=== PATIENT | male | born 1985 | race Native Hawaiian/Other Pacific Islander ===

== ENCOUNTER 2024-07-22 23:43 | Emergency (ER) | payer OTHER, SELFPAY ==
[2024-07-22 23:52] VITALS: BP 139/87; PULSE 84; RESP 20; TEMP 36.8; O2SAT 99; BMI 29.5
[2024-07-23 00:13] LABS: Appearance Urine Clear (Clear); Bilirubin Urine Negative (Negative); Blood Urine Negative (Negative); Color Urine Yellow (Yellow); Glucose Urine Negative (Negative); Ketones Urine Negative (Negative); Leukocyte Esterase Urine Negative (Negative); Nitrite Urine Negative (Negative); Protein Urine Negative (Negative); Specific Gravity Urine >= 1.030 (1.000-1.030); Urobilinogen Urine 0.2 (0.2-1.0); pH Urine 5.5 (5.0-8.5)
[2024-07-23 00:21] LABS: RBC Urine 0-2 (0-2); WBC Urine 0-2 (0-5)
[2024-07-23 00:22] LABS: Bacteria Urine Few; Mucus Urine Moderate; Squamous Epithelial Cell Urine Few (None-Few)
--- NOTE | 2024-07-23 00:45 | ED.GENADULT ---
HPI - General Adult General Chief complaint: Urogenital Problems, Male Stated complaint: trouble urinating Time Seen by Provider: 07/22/24 23:52 Source: patient Mode of arrival: ambulatory Limitations: no limitations History of Present Illness HPI narrative: 38-year-old male presents to the emergency department for evaluation of a lump on his penis but originally had said dysuria which he denies to me. He had a new sexual encounter over the weekend which is just 3 days ago. Yesterday he noticed a flesh-colored bump on the proximal shaft of his penis. He has no difficulty emptying his bladder. No changes in his stream. There is no pain on the tip of the penis. No fever. No blood in his urine. No injury or trauma. He did use protection with the sexual encounter. No abdominal pain, no vomiting. No penile discharge. He reports that he attempted to make an appointment in the clinic yesterday but told it would be a 2 day wait so he elected to come to the emergency department tonight in the wee hours. Past medical history is notable for obesity. States that he takes would go be for weight loss and another weight loss medication but he does not know the name. These are prescribed through provider at [facility]. Denies drug allergies. ROS is notable for the genital symptoms only, otherwise denies other generalized, skin, other genital, abdominal changes. Related Data Home Medications ?Medication ?Instructions ?Recorded ?Confirmed semaglutide (weight loss) 2.4 2.4 mg subcut DIRECTED 07/22/24 07/22/24 mg/0.75 mL subcutaneous pen injector (Wegovy) topiramate 25 mg tablet 25 mg PO BID 07/22/24 07/22/24 Allergies Allergy/AdvReac Type Severity Reaction Status Date / Time No Known Drug Allergies Allergy Verified 07/22/24 23:58 [facility] Medical History Sore throat ?J02.9 - Acute pharyngitis, unspecified (ICD-10) Surgical History No significant past surgical history Social History Smoking Status: Never smoker Second hand tobacco smoke exposure: No How often do you have a drink containing alcohol: never AUDIT-C Alcohol total score: 0 Non-prescribed substance use: denies use Exam Const: Vital Signs, click to edit/add: Vital Signs - 24 hr 07/22/24 23:52 Temperature 98.2 F Pulse Rate [Right Pulse Oximeter] 84 Respiratory Rate 20 Blood Pressure [Le ft Upper Arm] 139/87 Pulse Oximetry 99 Oxygen Delivery Me thod Room Air Documenting provider has reviewed patient's vital signs: yes Common normals: no apparent distress General appearance: comfortable HENMT: Common normals: normocephalic Head and scalp: normocephalic Eye: General eye: normal appearance of both eyes Neck & C-Spine: General: normal visual inspection Resp: Common normals: normal respiratory effort Effort & inspection: able to speak in complete sentences GI: Common normals: Normal to inspection, nondistended, normoactive bowel sounds present, soft to palpation, non-tender, no hepatosplenomegaly and no masses Palpation: soft and no hepatosplenomegaly : Male Groin/Perineum Exam: no ecchymosis, no edema, no erythema and no inguinal lymphadenopathy Penis: uncircumcised Meatus: meatus normal Scrotum: testes descended bilaterally Other: At the proximal shaft of the penis, near the mons there is a lesion that is about 7 mm in size, seems to be in the dermal layer, flesh-colored, firm, smooth, rounded with no significant changes in the overlying skin. There are no work like, ulcerated, macular, papular or other abnormal appearing lesions on the penis, scrotum, foreskin or head of the penis. Meatus appears normal. For skin appears normal. Extremity: Common normals: normal to inspection, normal capillary refill and no pedal edema Psych: Attitude: calm Activity/motor behavior: appropriate eye contact Insight: fair Judgement: fair Skin: Common normals: no rashes or lesions noted Narrative: Other than the cystic lesion described above, no other abnormal lesions. General skin exam: no rashes or lesions noted Course Course ED Course: I initially had a hard time understanding the patient's concerns, and we requested the use of microelectronics technician. It is had a hard time understanding what he was concerned about as he had much difficulty describing it but had initially declined an microelectronics technician. With this, we were able to figure out that the lump is new and he was very concerned about it despite the fact that he has no difficulty voiding, no drainage, no ulcerated lesions, no prior similar history, no known exposure to STDs, no dysuria or other abnormality. Urinalysis is collected. Counseled patient on the cystic appearance and how it does not seem consistent with an STD but it can be difficult to tell in the 1st early stage sometimes of a lesion. Counseled patient that there is certainly no immediate threat to his health. Gonorrhea and chlamydia tests are collected and will be run in the daylight hours. He is counseled that he will be called if these are abnormal. Urinalysis is not suspicious for acute urinary tract infection. Patient counseled on the cystic lesion. These do typically resolve on their own but it takes several weeks. He still seems incredibly concerned about this lesion. I have recommended that he make a follow-up with a urologist for a 2nd opinion. We discussed the alarm symptoms that would warrant ED presentation and also described lesions that would be more consistent with an STD like ulcerated or papilla form type lesions. Written instructions provided. Patient will be contacted if his STD screen is unexpectedly positive. Vital Signs Vital signs: Initial Vital Signs Temperature 98.2 F 07/22/24 23:52 Temperature Source Temporal Artery Scan 07/22/24 23:52 Pulse Rate 84 07/22/24 23:52 Respiratory Rate 20 07/22/24 23:52 Blood Pressure 139/87 07/22/24 23:52 Blood Pressure Mean 104 07/22/24 23:52 Blood Pressure Position Sitting 07/22/24 23:52 Pulse Oximetry 99 07/22/24 23:52 Oxygen Delivery Method Room Air 07/22/24 23:52 Vital Signs Temperature 98.2 F 07/22/24 23:52 Pulse Rate 84 07/22/24 23:52 Respiratory Rate 20 07/22/24 23:52 Blood Pressure 139/87 07/22/24 23:52 Pulse Oximetry 99 07/22/24 23:52 Oxygen Delivery Method Room Air 07/22/24 23:52 Temperature 98.2 F 07/22/24 23:52 Pulse Rate 84 07/22/24 23:52 Respiratory Rate 20 07/22/24 23:52 Blood Pressure 139/87 07/22/24 23:52 Pulse Oximetry 99 12/03/24 23:52 Oxygen Delivery Method Room Air 07/22/24 23:52 Medical Decision Making Lab Data Labs: Lab Results 07/22/24 Range/Units 23:59 Urine Color Yellow (Yellow) Urine Appearance Clear (Clear) Urine pH 5.5 (5.0-8.5) Ur Specific [place] >= 1.030 (1.000-1.030) Urine Protein Negative (Negative) Urine Glucose (UA) Negative (Negative) Urine Ketones Negative (Negative) Urine Blood Negative (Negative) Urine Nitrite Negative (Negative) Urine Bilirubin Negative (Negative) Urine Urobilinogen 0.2 (0.2-1.0) Ur Leukocyte Esterase Negative (Negative) Urine RBC 0-2 (0-2) Urine WBC 0-2 (0-5) Ur Squamous Epith Cells Few (None-Few) Urine Bacteria Few A (None) Urine Mucus Moderate A (None) Discharge Plan Discharge Clinical Impression: Epidermoid cyst of skin of penis Patient Disposition: Home, Self-Care Condition: Stable Additional Instructions: As we discussed, the bump on the upper penis does not seem consistent with a sexually transmitted disease. It seems more consistent with an cyst. Cysts are typically the same color is your skin, a little larger and are often firm and nonpainful. Lesions associated with sexually transmitted diseases tend to be red, smaller or ulcerated. Cysts will often last for several weeks and will go away on their own. I do not recommend attempting to pop or drain the lesion. There are no signs of a urinary tract infection on your urine test today. We will check for gonorrhea and chlamydia in your urine as well and that test will be back tomorrow. We will call you if it is positive. We cannot run a full STD panel here in the emergency department. We would recommend that you have this done 2 weeks after sexual contact if you are concerned. You seem quite concerned regarding this bump on your genital area and do not seem reassured by my assessment. Because of this, I recommend that you seek a 2nd opinion from a urologist. You may call [facility] to schedule this for yourself. Their phone numbers are Call: [phone] or Call: [phone]. As we discussed, these are not concerns that her typically addressed in the emergency department. You should come to emergency department if you have severe burning with urination and fever or heavy bleeding with urination or if you are unable to urinate after several hours of attempting to do so.. Jignesh ya comentamos, el bulto en la parte superior del pene no parece corresponder a zeenat enfermedad de transmisi?n sexual, sino m?s jeremy a un quiste. Los quistes suelen ser del mismo color que la piel, un poco m?s grandes y, a menudo, firmes y no dolorosos. Las lesiones asociadas a las enfermedades de transmisi?n sexual suelen ser de leon, m?s rubio?as o ulceradas. Los quistes suelen durar varias semanas y desaparecer?n por s? solos. No recomiendo intentar reventar o drenar la lesi?n. Hoy no hay signos de infecci?n del tracto urinario en el an?lisis de orina. Tambi?n comprobaremos si hay gonorrea y clamidia en la orina y ma?laquita tendremos los resultados. Te llamaremos si es positivo. No podemos realizar un panel completo de ETS aqu? en el departamento de urgencias. Te recomendamos que lo hagas 2 semanas despu?s del contacto sexual si est?s preocupado. Pareces bastante preocupado por cedric bulto en tu rell genital y no pareces tranquilizado por mi evaluaci?n. Por ello, te recomiendo que busques zeenat segunda opini?n de un ur?logo. Puedes llamar a [facility] [place] para programar zeenat aisha. Gabrielle n?meros de tel?fono son: [phone] o [phone]. Lawn ya comentamos, no se trata de problemas que se suelen tratar en el servicio de urgencias. Debe acudir al servicio de urgencias si tiene ardor intenso al orinar y fiebre o sangrado intenso al orinar o si no puede orinar despu?s de varias horas de intentar hacerlo. Activity Level: No Restrictions Discharge Diet: Regular Prescriptions: No Action topiramate 25 mg tablet 25 mg PO BID Wegovy 2.4 mg/0.75 mL pen injector 2.4 mg subcut DIRECTED Follow Up/Referrals: Provider,Not a Local [Primary Care Provider] - Stand Alone Forms: [facility] Inst[facility]
--- OUTSIDE RECORDS SUMMARY | 2024-07-23 00:55 | XMS_ITS | Clinical Summary ---
Author Organization [facility] Address [address] [address] Care Team Providers Care Transportation Assistant Name Role Phone No Primary/Referring, Phy Primary Care Provider Unavailable Source Comments You are receiving this document as you are listed as the primary care provider,follow-up provider, or the patient has been referred to you for consultation.This is in compliance with the Medicare and[facility] EHR Incentive [facility],which states Providers who transition their patient to another setting of careor provider of care or refers their patient to another provider of care shouldprovide summary care record for each transition of care or referral. [employer] Allergies Active Allergy Reactions Criticality Noted Date Comments Latex Redness 11/08/2022 Medications Medication Sig Dispensed Refills Start Date End Date Status cyclobenzaprine (FLEXERIL) 5 MG tablet Take 1 Tablet (5 mg) by mouth at bedtime as needed. 10/25/2021 Active diclofenac (VOLTAREN) 1 % gel 2 g 4 times a day. 10/28/2021 Active SUMAtriptan (IMITREX) 100 MG tablet 100mg one time. May repeat 100 mg once again, up to a maximum of 200mg in 24 hours. 08/03/2021 Active topiramate (TOPAMAX) 25 MG tablet Take 1 tablet (25 mg) at bedtime for 1 week, then 1 tablet twice daily for 1 week, then 1 tablet in AM and 2 in PM for 1 week, then 2 tablets twice daily. 11/29/2021 Active semaglutide-weight management (WEGOVY) 0.25 MG/0.5ML pen injection Inject 0.5 mL (0.25 mg) subcutaneously once every week. Active minoxidil (LONITEN) 10 MG tablet Take 1 Tablet (10 mg) by mouth daily. Active acetaminophen (TYLENOL) 500 MG tablet Take 1-2 Tablets (500-1,000 mg) by mouth every 6 hours as needed. 100 Tablet 1 01/17/2024 Active oxyCODONE (ROXICODONE) 5 MG immediate release tablet Take 1 Tablet (5 mg) by mouth every 6 hours as needed. 8 Tablet 01/17/2024 Active Additional Information Patient not taking.Reported on 02/04/2024 ibuprofen (MOTRIN) 200 MG tablet Take 1-3 Tablets (200-600 mg) by mouth every 6 hours as needed. 100 Tablet 1 01/17/2024 Active docusate sodium (COLACE) 100 MG capsule Take 1 Capsule (100 mg) by mouth two times a day. 40 Capsule 1 01/17/2024 Active ondansetron (ZOFRAN-ODT) 4 MG disintegrating tablet Take 1 Tablet (4 mg) by mouth every 8 hours as needed. 12 Tablet 1 01/17/2024 Active Active Problems Problem Noted Date Diagnosed Date Patellofemoral pain syndrome of right knee 07/08 Postop check 02/04/2024 Sesamoiditis of right foot 03/03/2022 Pain in joint involving right ankle and foot 05/2022 Right foot pain 12/27/2021 Cervicalgia 07/26/2006 Lumbago 07/26/2006 Encounters Date Type Department Care Team Description 07/08/2024 11:20 AM MOTION PICTURE DIRECTOR Office Visit Orthopedics at [facility] Orthopedics at [address] [address] Alexandra Jon MD Right foot pain (Primary Dx); Patellofemoral pain syndrome of right knee 07/08/2024 11:00 AM MOTION PICTURE DIRECTOR Office Visit Orthopedics at [facility] Orthopedics at [address] [address] Mary Chong, SOLID SURFACE FABRICATOR, BONE PULLER Patellofemoral arthritis of right knee (Primary Dx) 05/10/2024 8:15 AM CDT Therapy [facility] [address] [address] Corine Gama, PT Chronic pain of right knee (Primary Dx) 04/26/2024 12:30 PM CDT Therapy [facility] [address] [address] Tawny Alarcon, PT Chronic pain of right knee (Primary Dx) from Last 3 Months Immunizations Name Administration Dates Next Due DTP 02/25/1992, 9,05/18/1987, 987,1986 HepB Adult (Engerix-B, 20+ y rs, 3 dose series) 11/13/2006,08/18/2005,09/10/2002 IPV (Polio) 02/25/1992, 9,02/18/1987, 987 Influenza IIV4 (Quadrivalent ) 0.5mL (32770) 09/01/2015 MMR 05/18/1999,06/19/1989 Td 05/18/1999 Tdap 09/01/2015 Varicella 08/18/2005,09/10/2002 Family History Medical History Relation Name Comments Diabetes, Type II Father Hyperlipidemia Father Relation Name Status Comments Father Social History Tobacco Use Types Packs/Day Years Used Date Smoking Tobacco: Never Smokeless Tobacco: Never Alcohol Use Standard Drinks/Week Comments No 0 (1 standard drink = 0.6 oz pur e alcohol) Humiliation, Afraid, Rape, and Kick questionnair e Answer Date Recorded Fear of Current or Ex-Partner Not on file Emotionally Abused Not on file 01/16/2024 Within the last year, have y ou been kicked, hit, slapped, or otherwise physically hurt by your partner or ex-partner? No 01/16/2024 Within the last year, have y ou been raped or forced to have any kind of sexual activity by your partner or ex-partner? No 01/16/2024 Sex and Gender Information Value Date Recorded Sex Assigned at Not on file Gender Identity Not on file Sexual Orientation Not on file Last Filed Vital Signs Vital Sign Reading Time Taken Comments Blood Pressure 125/75 01/17/2024 1:15 PM CDT Pulse 88 01/17/2024 1:15 PM CDT Temperature 36.7 C (98.1 F) 01/17/2024 1:15 PM CDT Respiratory Rate 15 01/17/2024 1:15 PM CDT Oxygen Saturation 95% 01/17/2024 1:15 PM CDT Inhaled Oxygen Concentration - - Weight 93.9 kg (207 lb) 01/17/2024 8:00 AM CDT Height 168.9 cm (5' 6.5) 01/17/2024 8:00 AM CDT Body Mass Index 32.91 01/17/2024 8:00 AM CDT Plan of Treatment Health Maintenance Due Date Last Done Comments Diabetes Screening- (based on age and BMI) 1985 Hep C Screening (Preventive Services) 1985 HIV Screening (Preventive Services) 2002 Adult Preventive Visit 2004 Cholesterol 2021 COVID-19 Vaccine ( season) 2024 01/11/2021, 12/21/2020 Influenza (#1) 2024 09/01/2015 DTaP/Tdap/Td (7 - Tdap) 09/01/2025 09/01/19 16, 05/18/1999, 05/18/1999, Additional history exists Zoster/Shingles (1 of 2) 2036 IPV (Polio) Completed 02/25/1992, 05/22, 02/18/1987, Additional history exists HepB Completed 11/13/2006, 07/22, 09/10/2002 HPV Vaccine Aged Out No longer eligi ble based on patient's age to complete this topic HepA Aged Out No longer eligi ble based on patient's age to complete this topic Hib Aged Out No longer eligi ble based on patient's age to complete this topic Infant RSV Aged Out No longer eligi ble based on patient's age to complete this topic MCV4 Aged Out No longer eligi ble based on patient's age to complete this topic Pneumococcal Aged Out No longer eligi ble based on patient's age to complete this topic Advance Directives * Full Code (Latest Code Status on File) Date Activated Date Inactivated Comments 01/17/2024 11:21 AM 01/17/2024 3:41 PM Care Teams Transportation Assistant Relationship Specialty Start Date End Date No Primary/Referring, Vianey PCP - General 05/15/14
--- OUTSIDE RECORDS SUMMARY | 2024-07-23 00:55 | XMS_ITS | Encounter Summary ---
Author Organization [facility] Address [address] [place] [address] Care Team Providers Care Catapult And Arresting Gear Officer Name Role Phone No Primary/Referring, Phy Primary Care Provider Unavailable Reason for Visit * Reason Comments Knee Problem Encounter Details Date Type Department Care Team (Late st Contact Info) Description 05/10/2024 8:15 AM CDT Therapy [facility] [address] [address] [place] [address] [place] [address] Chronic pain of right knee (Primary Dx) Social History Tobacco Use Types Packs/Day Years [...] on file Sexual Orientation Not on file documented as of this encounter Progress Notes * Corine Gama, PT - 05/10/2024 8:15 AM CDT Physical Therapy Daily Note Visit Number: 4 Initial Certification Period: 03/03/2024 to 06/01/24 Referring Provider: Vini Yip Visit Diagnosis: 1. Chronic pain of right knee Precautions: none reported Reference Data Expert Onset/Referral Date: Winter 2022 Patient 15' late to appointment. Patient declined banjo repair person today. He demonstrated good understanding of my questions and was ableto have a full conversation with me. I asked repeatedly if he understood and he responded yes each time. SUBJECTIVE Reason for Visit: Cheng is new to this therapist. He reports persistent moderate to severe right knee, now primarily lateral joint line. He reports that pain is an 8/10 regularly. 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 Stiff and sore with am rise, sit to stand. He does not have access to exercise equipment. Reports that he is unable to stand or walk for an extended period of time secondaryto fatigue. Has had knee injection and it helped temporarily. Worse with standing, walking, and stairs. Ok sitting at desk. Attempting his exercises irregularly. Right knee pain that has been happening since his fall this past winter. He had a recent sesamoid removal in his right great toe that happened in January. Does not understand why his foot has pain stilland why it is swollen. Reports that he knows that he needs a knee surgery even if the doctors are telling him he doesn't. 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 Independent without AD. TREATMENT TODAY: Neuromuscular Re-education x 30 minutes: Utilized to manage pain and/or improve deficits in movement, balance, coordination, kinesthetic sense, posture, and/or proprioception. Again, Extensive pain neuroscience education provided while doing exercises Nustep without resistance x 8' Sidestepping 25' x 2. Add to HEP. Forward mini lunge 25' x 2. Add to HEP. [place], 1/4 ROM secondary to ITB pain. 15' x 1. Add to HEP. Hand out provided on PTF pain and the importance of strengthening, stretching to decrease his symptoms. Pain can be anticipated as he is working through PT. Pain, even up to a 5/10, can be normal post exercise. Proper posture and ergonomic needs for work, sleep and adls discussed and demonstrated in detail with hand out provided. No prolonged sit, walk often. Follow up with ortho for pain management needs. Timed Code Treatment Minutes: 30 Total Treatment Minutes: 30 Access Code: [email or web address] URL: [email or web address] Date: 05/10/2024 Prepared by: Corine Gama Exercises - Supine Active Straight Leg Raise - 1 x daily - 7 x weekly - 2 sets - 10 reps - Supine Bridge - 2 sets - 10 reps - Supine Heel Slide - 1 x daily - 7 x weekly - 2 sets - 10 reps - Supine Knee Extension Strengthening - 1 x daily - 7 x weekly - 2 sets - 10 reps - Stand quad set with band - 1 x daily - 2 sets - 15 reps - Hip Abduction with Resistance Loop - 1 x daily - 2 sets - 15 reps - Sideways Walking - 1 x daily - 5 reps - 50 feet - Walking Forward Lunge - 1 x daily - 5 reps - 50 feet - Braided Sidestepping - 1 x daily - 5 reps - 50 feet ASSESSMENT: Cheng returns to PT reporting ongoing knee pain. Continues to have high fear avoidance behavior which is limiting his progress. Pt will continue to benefit from skilled Physical Therapy interventions to address above impairments and allow pt to return to activities of daily living, work and leisure activities independently as tolerated. EXPECTED FUNCTIONAL OUTCOMES/GOALS: HEP/Independent Management: Demonstrate independence with HEP and self- management following each treatment session ADL's: Resume previous sleep pattern without awakening due to symptoms in 12 weeks. Perform sit to stand transfer using involved lower extremity in 12 weeks. Squat to chart picker items from floor with minimal/no symptoms in 12 weeks. Ambulation: Ambulate with normal gait pattern on uneven surfaces with minimal to no symptoms/limp in 12 weeks. Be aleshia to go up and down stairs in the sagittal pain in 4 weeks. Be able to go up and down stairs without fear and pain above 4/10 in 12 weeks. PLAN: TNE. bike, leg press. Functional movement. documented in this encounter Plan of Treatment Not on file documented as of this encounter Visit Diagnoses Diagnosis Chronic pain of right knee- Primary documented in this encounter Care Teams Catapult And Arresting Gear Officer Relationship Specialty Start Date End Date No Primary/Referring, Phy PCP - General 05/15/14 documented as of this encounter
--- OUTSIDE RECORDS SUMMARY | 2024-07-23 00:55 | XMS_ITS | Encounter Summary ---
Author Organization [facility] Address [address] [address] Care Team Providers Care Senior Mainframe Programmer Analyst Name Role Phone No Primary/Referring, Phy Primary Care Provider Unavailable Reason for Referral * Therapies (Routine) - New Request Specialty Diagnoses / Procedures Referred By Contac t Referred To Contact Diagnoses Right foot pain Patellofemoral pain syndrome of right knee Alexandra Jon MD [address] [facility] [address] [place] [address] Referral ID Status Reason Start Date Expiration Date V isits Requested Visits Authorized [id number] New Request 07/08/2024 07/08/2025 1 1 Scheduling Instructions Your clinician has recommended an appointment with Physical Therapy and Rehabilitation Services. You can quickly schedule your appointment by signing in to your online account at [email or web address] or through the text message you may have received. You can also make an appointment by calling [phone]. We suggest you call your health insurance company about your coverage and benefits for this appointment. Question Answer Appointment Urgency? Non-Urgent Requested Services Evaluate and treat Reason for Visit General Physical Therapy May use saline for irrigation or cleansing Yes dexamethasone use Yes May check glucose per protocol (see policy link below) or if patient has symptoms? Yes Comments R foot/ankle strengthening; R knee strengthening LINES MANAGER Reason for Visit * Reason Comments Follow-up Encounter Details Date Type Department Care Team ([facility] Contact Info) Description 07/08/2024 11:20 AM PIPELINES MANAGER Office Visit Orthopedics at [facility] Orthopedics at [facility] [address] [place] [address] Alexandra Jon MD [address] [facility] [address] [place] [address] Right foot pain (Primary Dx); Patellofemoral pain syndrome of right knee Social History Tobacco Use Types Packs/Day Years [...] on file documented as of this encounter Patient Instructions * Patient Instructions* Cesar Kruse, OA - 07/08/2024 11:20 AM PIPELINES MANAGER Thank you for Choosing [facility] for your health care visit today. Please read the contents below for some helpful resources. Dr. Alexandra Jon MD,[facility] Orthopedic Surgeon Foot and Ankle [facility] - Sunday and Sunday Release of Information: Radiology/Imaging Health Information Management [address] [facility] [address] [place] [address] [place] [address] (Phone) [phone] (Phone) [employer] Medication Requests: Prescriptions are not filled on weekends or on weekdays after 3:00 PM. For all medication refills: Request a refill using [employer] or contact your pharmacy. MRI Scheduling: To schedule an MRI at a [facility] location please call [phone] To schedule an MRI at a [facility] location please call [phone] [facility] Workers' Compensation [address] [place] [address] (Phone) Email: [email or web address] What is Know Your Cost? Know Your Cost is a service for patients and patient/members to call and receive personalized cost information and estimates across our care group. The phone number is (COST) Sunday - Sunday 8 AM to 5 PM LINES MANAGER documented in this encounter Progress Notes * Alexandra Jon MD - 07/08/2024 12:00 AM CST NAME: CHENG GODFREY CSN: [id number] CLINIC NOTE DATE OF SERVICE: 07/08/2024 : 1985 This 38-year-old followed up today now 5-1/2 months after undergoing right medial sesamoid excisionfor chronic fracture nonunion. Date of surgery, 01/17/2024. He states that his preoperative pain has been relieved. He still has some occasional symptoms including recently some numbness under his medial 1st MTP joint. As well, his foot feels tired when he stands for a long time. He just had a kneeinjection today as well. On physical examination today, his forefoot is well aligned. There is no hallux valgus. His incision is healed. He has no tenderness under the medial sesamoid. He has normal sensation dorsally and plantarly. IMPRESSION: Five and half months status post excision right medial sesamoid for chronic fracture nonunion. Some residual symptoms intermittently. PLAN: I recommended an orthotic with a metatarsal pad which he can find over the counter at [employer] or online. He is using an appropriate stiff-soled shoe today. He would like to pursue some physical therapy for his leg and an order was placed. 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 He states that his work is only seated work and he does not feel that he could progress to standing all day due to his foot and his knee. A workability was provided stating that he can continue with sedentary work. An order for physical therapy was placed. I reassured him that everything looks on track and that it is normal to have some discomfort now and then after surgery. He will follow up in clinic on an as-needed basis. MD ENA HERNANDEZW/SANDRA /[id number] LINES MANAGER documented in this encounter Plan of Treatment Scheduled Referrals Name Type Priority Associated Diagnoses Orde r Schedule Physical Therapy Referral Routine Right foot pain Patellofemoral pain syndrome of right knee Ordered: 07/08/2024 documented as of this encounter Visit Diagnoses Diagnosis Right foot pain- Primary Pain in limb Patellofemoral pain syndrome of right knee documented in this encounter Care Teams Senior Mainframe Programmer Analyst Relationship Specialty Start Date End Date No Primary/Referring, Phy PCP - General 05/15/14 documented as of this encounter
--- OUTSIDE RECORDS SUMMARY | 2024-07-23 00:55 | XMS_ITS | Encounter Summary ---
Author Organization [facility] Address [address], [place] [address] Care Team Providers Care Immigration Patrol Inspector Name Role Phone No Primary/Referring, Phy Primary Care Provider Unavailable Reason for Referral * (Routine) - New Request Specialty Diagnoses / Procedures Referred By Contac t Referred To Contact Diagnoses Patellofemoral arthritis of right knee Procedures Triamcinolone Acet Inj Nos: (per 10 mg) Mary Chong APRN, CNP [address] [place] [address] [place] [address] Referral ID Status Reason Start Date Expiration Date V isits Requested Visits Authorized [id number] New Request 07/09/2024 10/08/2025 1 1 M DEVELOPER Reason for Visit * Reason Comments Follow-up Encounter Details Date Type Department Care Team (Late st Contact Info) Description 07/08/2024 11:00 AM CURAM DEVELOPER Office Visit Orthopedics at [facility] Orthopedics at [address] [address] Mary Chong APRN, CNP [address] [place] [id number] Patellofemoral arthritis of right knee (Primary Dx) Social History [...] this encounter Patient Instructions * Patient Instructions* Mary Chong APRN, MAURA - 07/08/2024 11:00 AM CURAM DEVELOPER The right knee was injected with Triamcinolone -80 and lidocaine. Avoid Strenuous Activity for the remainder of the day and avoid activities that cause pain for one to two weeks following the injection. Signs and Symptoms to watch for: If you have any redness, warmth or increasing pain at the site of the injection or develop a fever,please call [phone] You've just had a steroid (cortisone) injection: Steroid injections are among the most frequently used treatments in orthopedics. Steroid injectionsare used for a wide range of conditions from arthritis, to bursitis, to tennis elbow, etc. The two most common side-effects of steroid shots called ???steroid flare??? and ???steroid flush. Steroid flare can cause an increase in symptoms in the first 24-48 hours after a steroid injection.This will usually subside within a few days, and is a cause from the additional fluid in your joint, and the trauma to the joint lining from the injection. This pain usually subsides quickly and can be aided with an ice pack and over the counter anti-inflammatory medication. Steroid flush is a flushing sensation and redness of their face. This reaction is more common in women, but can occur in men as well, and is seen into up to 15 percent of patients. This can begin within a few hours of the injection and may last for a few days. It is not dangerous, and will resolve itself. Diabetic patients also can have their blood sugar levels affected. Patients with diabetes should carefully monitor their blood sugar as steroid can cause a temporary rise in their levels. Patients taking insulin should be especially careful, checking their blood sugar often and adjusting the insulin doses, if necessary. Steroid injections can only be repeated every 3 or 4 months. For some conditions there may also be a limited total number of times it is safe to repeat an injection. RISKS: Infection Whenever there is a break in the skin, like when a needle is used to administer steroid, there is achance of infection this is very unlikely to happen, usually would occur days after the injection. Signs and symptoms to watch for: fever, streaking redness, pus, drainage, foul odor, localized redness that continues to get worse, come to the office if symptoms are recognized during business hours, or proceed to the emergency room if symptoms are recognized after office hours. Skin Pigment Changes Patients should also be aware that steroid may cause skin around the injection site to lighten. This is not harmful or long lasting. Loss of Fatty Tissue This is one reason we limit the number of steroid injections administered. High doses of steroid can have detrimental effects on some tissues in the body, though due to the dosage we use the risk is extremely rare. When injected into fatty tissue, steroid can lead to a problem called fat atrophy. Fat atrophy causes loss of fatty tissue, which can lead to dimpling of the skin or the thinning out of fat. Skin will feel thin. Patients who get steroid injections in the heel to treat plantar fasciitis may find walking painful as fat that usually cushions their steps may thin out. Tendon Rupture Steroid can also cause weakening of tendons. This is one reason to limit the number of steroid injections administered. Thank you for Choosing [facility] for your health care visit today. Please read the contents below for some helpful resources. Mary Chong, YARD SWITCHER-F Nurse Practitioner Trauma and Knee Osteoarthritis Program Supporting Drs. Gomez and Vaughn DIALLO Armour-Trauma-M/; Knee OA W/F Release of Information: Radiology/Imaging Health Information Management [address] [facility] [address] [place] [address] [place] [address] (Phone) [phone] (Phone) [employer] Medication Requests: Prescriptions are not filled on weekends or on weekdays after 3:00 PM. For all medication refills: Request a refill using [facility] or contact your pharmacy. MRI Scheduling: To schedule an MRI at a [facility] location please call [phone] To schedule an MRI at a [facility] location please call [phone] [facility] Workers' Compensation [address] [place] [address] (Phone) Email: [email or web address] What is Know Your Cost? Know Your Cost is a service for patients and patient/members to call and receive personalized cost information and estimates across our care group. The phone number is (COST) Sunday - Sunday 8 AM to 5 PM M DEVELOPER documented in this encounter Progress Notes * Mary Chong APRN, CNP - 07/08/2024 11:00 AM CST ORTHOPEDIC CLINIC NOTE REASON FOR VISIT: Right knee cortisone injection HPI: Cheng Godfrey is a 38 y.o. male here for repeat right knee cortisone injection. Previous injectionwas on 04/07/24 with [facility] Hernandes. Patient did well with his last cortisone injection. There was no issues or complications. Patient states the cortisone injection was helpful and would like another injection today. PHYSICAL EXAM: Patient is alert and oriented x3, not in apparent distress. He is able to climb on exam table with no difficulty. Right knee briefly examined. No tenderness to palpation. Skin is warm, dry and intact. No erythema or ecchymosis. No discernible effusion. DIAGNOSIS/ASSESSMENT: Patellofemoral arthritis of right knee PLAN: Cheng Godfrey is a 38 y.o male here for repeat cortisone injection. Risks, alternatives, and potential benefits were discussed, and the patient consents to proceed with a steroid injection. Using aseptic technique and a chloraprep, the patient underwent a right knee intra-articular injection from the anterolateral portal site using a 22-gauge needle with 8 cc 1% plain Lidocaine and 80 mg of Triamcinolone. There were no complications with the procedure. The patient tolerated the procedure well and noted immediate relief. Patient can follow-up with Solis Hernandes as needed for knee injections as well as other knee concerns. Mary Chong APRN, CNP M DEVELOPER documented in this encounter Plan of Treatment Not on file documented as of this encounter Visit Diagnoses Diagnosis Patellofemoral arthritis of right knee- Primary documented in this encounter Care Teams Immigration Patrol Inspector Relationship Specialty Start Date End Date No Primary/Referring, Phy PCP - General 05/15/14 documented as of this encounter
--- OUTSIDE RECORDS SUMMARY | 2024-07-23 00:55 | XMS_ITS | Encounter Summary ---
Author Organization [facility] Address [address], [place] [address] Care Team Providers Care Piece Marker Small Arms Name Role Phone No Primary/Referring, Phy Primary Care Provider Unavailable Reason for Visit * Reason Comments Knee Problem Encounter Details Date Type Department Care Team (Late st Contact Info) Description 04/26/2024 12:30 PM CDT Therapy [facility] [address] [address] Tawny Alarcon, PT [address] [place] [address] Chronic pain of right knee (Primary Dx) [...] as of this encounter Progress Notes * Tawny Alarcon, PT - 04/26/2024 12:30 PM CDT Physical Therapy Daily Note Visit Number: 3 Initial Certification Period: 03/03/2024 to 06/01/24 Referring Provider: Vini Yip Visit Diagnosis: 1. Chronic pain of right knee Precautions: none reported Advice Nurse Onset/Referral Date: Winter 2022 SUBJECTIVE Reason for Visit: States continues to have painful. Has had knee injection and it helped temporarily. Worse with standing, walking, and stairs. Ok sitting at desk. Not doing his exercises. Right knee pain that has been happening since his fall this past winter. He had a recent sesamoid removal in his right great toe that happened in January. Does not understand why his foot has pain stilland why it is swollen. Thinks the cartilage in his knee is leaking out. Does not understand why hisknee hurts all the time and thinks anytime it does hurt he is causing lots of damage. Now is havingsignificant pain in his left knee and feels that he needs surgery on both of his knees now. 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 Aggravating factors:going up and down stairs, standing, [...] UE use, off loads R LE Gait: Increased hip flexion, knee flexion in swing, decreased R push off TREATMENT TODAY: Self Care/Home Mgmt (CPT 27017) x 15 minutes: -Recommended using hot pack or warm towel at home. - Again significant time answering questions related to knee anatomy and role of PT and exercise. Kinesiotape: Discussed with patient the risks, benefits, and usage of taping. Patient agreed to treatment. Instructed to remove if skin becomes painful or irritated. Applied lateral to medial horizontal strip with 50% pull. And lateral half klawock support. Pt agreed to exercise after. Neuromuscular Re-education x 28 minutes: Utilized to manage pain and/or improve deficits in movement, balance, coordination, kinesthetic sense, posture, and/or proprioception. Extensive pain neuroscience education provided while doing exercises - Patient declined doing SLR as he says he was in too much pain today - Supine heel slides x 5 reps - SAQ- pt declines - Back against wall band TKE (green band issued for home) 2 x 15 reps - Stand resisted hip abduction (green band below knees) 2 x 10 reps L/R --cues for less trunk leak - Sit to stand --unable without UE - Bridge: pt declines Pt declines other exercises today Education on trial bike and leg press next session Discussed use of cane as needed for pain; pt reports has one but doesn't like to use it/embarrassed. Timed Code Treatment Minutes: 43 Total Treatment Minutes: 43 HEP: Access Code: [email or web address] (printed in norwegian and qatari per patient request) - Supine heel slides - SAQ - TKE band (issued green band) - Stand hip abduction green band below knee ASSESSMENT: Cheng returns to PT reporting ongoing knee pain. Continues to have high fear avoidance behavior. Receptive to education today and working general mobility/in standing. Education on goals/expectations of PT; reassurances regarding MD findings. EXPECTED FUNCTIONAL OUTCOMES/GOALS: HEP/Independent Management: Demonstrate independence with HEP and self- management following each treatment session ADL's: Resume previous sleep pattern without awakening due to symptoms in 12 weeks. Perform sit to stand transfer using involved lower extremity in 12 weeks. Squat to picker operator items from floor with minimal/no symptoms in 12 weeks. Ambulation: Ambulate with normal gait pattern on uneven surfaces with minimal to no symptoms/limp in 12 weeks. Be aleshia to go up and down stairs in the sagittal pain in 4 weeks. Be able to go up and down stairs without fear and pain above 4/10 in 12 weeks. PLAN: Stand TKE, bike, leg press. Functional movement may be more helpful. Assess response to taping. documented in this encounter Plan of Treatment Not on file documented as of this encounter Visit Diagnoses Diagnosis Chronic pain of right knee- Primary documented in this encounter Care Teams Piece Marker Small Arms Relationship Specialty Start Date End Date No Primary/Referring, Phy PCP - General 05/15/14 documented as of this encounter
--- OUTSIDE RECORDS SUMMARY | 2024-07-23 00:56 | XMS_ITS | Clinical Summary ---
Author Organization [facility] Address [place], [place] [address] Care Team Providers Care Senior Buyer Planner Name Role Phone Nonstaff, Doctor Primary Care Provider Unavailab le Allergies Active Allergy Reactions Criticality Noted Date Comments Latex Erythema 11/08/2022 Medications Medication Sig Dispensed Refills Start Date End Date Status ibuprofen (ADVIL; MOTRIN) 600 mg tablet Take 600 mg by mouth. 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 Give at minimum 2hrs apart. Max Dose: 200mg per 24hrs. 10 Tablet 3 06/07/2021 Active ondansetron (ZOFRAN) 8 mg tabletIndications:Marie anthony, elective Take 1 Tablet (8 mg) by mouth every 8 hours if needed for Nausea/Vomiting. 8 Tablet 2 11/09/2022 Active oxyCODONE (ROXICODONE) 5 mg/5 mL solutionIndications:S urgery, elective Take 5-10 mL (5-10 mg) by mouth every 4 hours if needed for Pain. 120 mL 11/09/2022 Active cyclobenzaprine (FLEXERIL) 5 mg tablet Take 5 mg by mouth at bedtime if needed. 10/25/2021 Active topiramate (TOPAMAX) 25 mg tablet Take 1 tablet (25 mg) at bedtime for 1 week, then 1 tablet twice daily for 1 week, then 1 tablet in AM and 2 in PM for 1 week, then 2 tablets twice daily. 11/29/2021 Active lisinopriL (PRINIVIL; ZESTRIL) 20 mg tablet Take 20 mg by mouth once daily. Active Immunizations Name Administration Dates Next Due COVID-19 vaccine ([employer] NTWirescan 30mcg/0.3mL) PF, MDV 01/11/2021,12/21/2020 DTP 02/25/1992, 9,05/18/1987,1986,1986 DTaP 02/25/1992, 9,05/18/1987,1986,1986 Hepatitis B (Adult) 11/13/2006,08/18/2005,2002 Inactivated Polio Vaccine 02/25/1992,,02/18/1987,1986 MMR 05/18/1999,06/19/1989 Td (Age >=7 Years) 05/18/1999 Td, Preservative Free (age > = 7 Years) 05/18/1999 Tdap 09/01/2015,05/18/1999 Varicella Vaccine 08/18/2005,09/10/2002 Social History Tobacco Use Types Packs/Day Years Used Date Smoking Tobacco: Never Smokeless Tobacco: Never Alcohol Use Standard Drinks/Week Comments Not Currently 0 (1 standard drink = 0.6 oz pur e alcohol) Social Connections Answer Date Recorded Frequency of Communication with Friends and Fami ly Not on file 08/16/2021 Financial Resource Strain Answer Date R ecorded Difficulty of Paying Living Expenses Not on file 08/16/2021 Difficulty of Paying Living Expenses Not on file 08/16/2021 Sex and Gender Information Value Date Recorded Sex Assigned at Not on file Gender Identity Not on file Sexual Orientation Not on file Obstetrics History Last Filed Vital Signs Vital Sign Reading Time Taken Comments Blood Pressure 129/67 11/09/2022 12:45 PM CDT Pulse 97 11/09/2022 12:45 PM CDT Temperature 36.3 C (97.3 F) 11/09/2022 12:45 PM CDT Respiratory Rate 16 11/09/2022 12:4 5 PM CDT Oxygen Saturation 96% 11/09/2022 12: 45 PM CDT Inhaled Oxygen Concentration - - Weight 112.9 kg (248 lb 14.4 oz) 11/09/2022 8:57 AM CDT Height 170.2 cm (5' 7) 11/09/2022 8:57 AM CDT Body Mass Index 38.98 11/09/2022 8:57 AM CDT Plan of Treatment Health Maintenance Due Date Last Done Comments Depression screening for age 12+ 1998 HIV for age 15-65 2001 BMI (ht and wt on same day) for age 18+ 2004 Hepatitis C screening for age 18-79 2004 Lipids for age 35-44 2021 COVID-19 vaccine series ( season) 2024 01/11/2021, 12/21/2020 Influenza for age 9-49 04/20/2024 Tetanus booster 09/01/2025 09/01/2015, 04/21, 05/18/1999, Additional history exists Tdap Completed 09/01/2015, 05/18/1999 Pneumococcal series for age 6-64 Aged Out No longer eligible based on patient's age to complete this topic Advance Directives * Full Code (Latest Code Status on File) Date Activated Date Inactivated Comments 11/09/2022 8:46 AM 11/09/2022 3:23 PM Question Answer Comments Code Status Discussion: Reviewed Preferences Care Teams Senior Buyer Planner Relationship Specialty Start Date End Date Nonstaff, Doctor NON STAFF DOCTOR PCP - General 10/25/22
--- OUTSIDE RECORDS SUMMARY | 2024-07-23 00:56 | XMS_ITS | Encounter Summary ---
Author Organization [facility] Address [address] [place] [address] Phone Care Team Providers Care It Admin Name Role Phone Ce Stewart APRN, CNP Primary Care P rovider Encounter Details Date Type Department Care Team (Latest Contact Info) Description 06/16/2024 Travel Social History Tobacco Use Types Packs/Day Years Used Date Smoking Tobacco: Never Smokeless Tobacco: Never Alcohol Use Standard Drinks/Week Comments No 0 (1 standard drink = 0.6 oz pur e alcohol) PHQ-2 Answer Date Recorded PHQ-2 Subtotal 1 02/01/2021 Hunger Vital Sign Answer Date Recorded Within the past 12 months, y ou worried that your food would run out before you got the money to buy more. Never true 06/01/20 23 Within the past 12 months, t he food you bought just didn't last and you didn't have money to get more. Never true 06/01/2023 Sex and Gender Information Value Date Recorded Sex Assigned at Male 10/29/2023 2:13 PM CDT Legal Sex Male 3:14 AM DISPUTE SPECIALIST Gender Identity Male 10/29/2023 2:13 PM CDT Sexual Orientation Not on file documented as of this encounter Plan of Treatment Upcoming Encounters Date Type Department Care Team (Late st Contact Info) Description 08/28/2024 4:00 PM DISPUTE SPECIALIST Office Visit [facility] [address] [place] [address] Ce Stewart APRN, MAURA [address] [address] Compensation Vice President, Other-Offsite [address] [place] [address] Scheduled Discharge Disposition: Discharged to home or self care documented as of this encounter Visit Diagnoses Not on filedocumented in this encounter Additional Health Concerns Assessment Noted Time PHQ-9 Depression Total Score: 2 02/02/20 21 9:23 AM CDT PHQ-2 Depression Total Score: 1 02/02/20 21 9:23 AM CDT documented as of this encounter Care Teams It Admin Relationship Specialty Start Date End Date Adi-Ce Forte APRN, CNP [address] [address] PCP - General Family Medicine 01/08/23 documented as of this encounter
--- OUTSIDE RECORDS SUMMARY | 2024-07-23 00:56 | XMS_ITS | Encounter Summary ---
Author Organization [facility] Address [address] [place] [address] Phone Care Team Providers Care Seam Feller Name Role Phone Ce Stewart APRN, CNP Primary Care P rovider Reason for Visit * Reason Comments Refill Request Encounter Details Date Type Department Care Team (Late st Contact Info) Description 06/30/2024 Refill [facility] [address] [place], [place] [id number] Ce Stewart APRN, SIZER MACHINE [address] [place], [place] [address] Refill Request Social History Tobacco Use Types Packs/Day Years [...] PM CDT Legal Sex Male 3:14 AM FINANCE MGR Gender Identity Male 10/29/2023 2:13 PM CDT Sexual Orientation Not on file documented as of this encounter Plan of Treatment Upcoming Encounters Date Type Department Care Team (Late st Contact Info) Description 08/28/2024 4:00 PM FINANCE MGR Office Visit [facility] [address] [place] [address] Ce Stewart APRN, SIZER MACHINE [address] [facility] [address] [place], [place] [address] Boring Machine Feeder, Other-Offsite [address] [place] [address] Scheduled Discharge Disposition: Discharged to home or self care documented as of this encounter Visit Diagnoses Diagnosis Obesity, Class II, BMI 35-39.9 Obesity, unspecified Tinea pedis, unspecified laterality documented in this encounter Additional Health Concerns Assessment Noted Time PHQ-9 Depression Total Score: 2 02/02/20 21 9:23 AM CDT PHQ-2 Depression Total Score: 1 02/02/20 21 9:23 AM CDT documented as of this encounter Care Teams Seam Feller Relationship Specialty Start Date End Date Ce Stewart, VINAYAK, SIZER MACHINE [address] [facility] [address] [place], [place] [phone] PCP - General Family Medicine 01/08/23 documented as of this encounter
--- OUTSIDE RECORDS SUMMARY | 2024-07-23 00:56 | XMS_ITS | Referral Summary ---
Author Organization [email or web address] Address [address] [place] [address] Phone Care Team Providers Care C Java Developer Name Role Phone Ce Stewart APRN, CNP Primary Care P mark Source Comments Fatsoma is fully rolled out on [facility]. Last update 01/22/[email or web address] Encounters * This document contains information received from the source organization and may not represent a complete record from that organization. Date Type Department Care Team Description 06/30/2024 Refill [facility] [address] [place] [address] Ce Stewart APRN, CNP Refill Request 06/30/2024 Refill [facility] [address] [place] [address] Ce tSewart APRN, CNP Refill Request 06/16/2024 Travel 06/16/2024 3:30 PM CDT Office Visit [facility] [address] [place] [address] Ce Stewart APRN, CNP Capacitor Assembler, Other-Offsite Androgenic alopecia (Primary Dx); Obesity, Class II, BMI 35-39.9; Prediabetes; Tinea pedis, unspecified laterality Discharge Disposition: Discharged to home or self care 06/05/2024 Refill [facility] [address] [place] [address] Ce Stewart, CORRECTIONAL TREATMENT SPECIALIST, HEALTH SERVICES ADMINISTRATOR Refill Request 06/02/2024 Travel from Last 3 Months Allergies No known active allergies Medications * This document contains information received from the source organization and may not represent a complete record from that organization. * Be aware that medications may not be up to date as of this document. Always verify current medications with patient. fluticasone propionate (FLONASE) 50 mcg/act nasal suspension Use 1 spray in each nostril once a day. Aim the spray away from the midline of your nose and towards your ears. 16 g 6 9 10:52 AM CDT 01/31/20 19 Active fluocinolone (DERMA-SMOOTHE BODY) 0.01 % externally oil APPLY EXTERNALLY TO ARMS TWICE DAILY NEEDED 11/01/19 21 Active ibuprofen (MOTRIN;ADVIL) 600 mg oral tablet Take 1 tablet (600 mg) by mouth. 09/08/19 22 Active metroNIDAZOLE (METROCREAM) 0.75% externally cream SMARTSIG:Topical Twice Daily 11/24/19 23 Active azelaic acid (FINACEA) 15 % externally gel SMARTSIG:Topical Twice Daily 11/24/19 23 Active sildenafil (VIAGRA) 50 mg oral tabletIndication s:Erectile dysfunction, unspecified erectile dysfunction type Take 1 tablet (50 mg) by mouth daily as needed for Erectile Dysfunction. 30 tablet 3 3 2:34 PM ECONOMIC HISTORY TEACHER 12/15/19 23 Active terazosin (HYTRIN) 1 mg oral capsule Take 1 capsule (1 mg) by mouth at bedtime. 90 capsule 1 06/04/20 23 Active triamcinolone acetonide (KENALOG) 0.1% externally cream Apply to skin twice daily.Apply to the penis twice daily for 10 days 28 g 06/04/20 23 Active SUMAtriptan (IMITREX) 50 mg oral TABSIndications: Migraine with aura and without status migrainosus, not intractable Take 1 tablet (50 mg) by mouth one time as needed for Headache. May repeat in 2 hours if needed 20 tablet 3 8:46 AM ECONOMIC HISTORY TEACHER 06/27/20 23 Active emtricitabine-te nofovir (TRUVADA) 200-300 mg oral tabletIndication s:Pre-Exposure Prophylaxis of HIV Take 1 tablet by mouth daily 30 tablet 2 4 3:35 PM CDT 06/02/20 24 025 Active finasteride (PROSCAR) 5 mg oral TABSIndications: Androgenic alopecia Take 1/4 tablet by mouth daily. 8 tablet 3 4 2:13 PM CDT 06/16/20 24 Active minoxidil (MINOXIDIL FOR MEN) 5 % externally foamIndications: Androgenetic Alopecia Apply 1/2 capful of foam to affected area of skin twice daily. 60 g 3 4 11:02 AM ECONOMIC HISTORY TEACHER 06/16/20 24 Active topiramate (TOPAMAX) 25 mg oral tabletIndication s:Obesity, Class II, BMI 35-39.9 Take 1 tablet (25 mg) by mouth twice daily. 180 tablet 1 4 2:53 PM ECONOMIC HISTORY TEACHER 06/16/20 24 Active clotrimazole (LOTRIMIN) 1% externally creamIndications :Tinea Pedis Apply a thin layer to affected area on feet daily 30 g 06/30/20 24 Active semaglutide-weig ht management (WEGOVY) 2.4 mg/0.75 mL subcutaneous auto-injector penIndications:O besity, Class II, BMI 35-39.9 Inject 1 pen (2.4 mg) subcutaneously weekly for weight management. 18 mL 6 4 11:02 AM ECONOMIC HISTORY TEACHER 06/30/20 24 Active semaglutide-weig ht management (WEGOVY) 2.4 mg/0.75 mL subcutaneous auto-injector penIndications:O besity, Class II, BMI 35-39.9 Inject 1 pen (2.4 mg) subcutaneously weekly for weight management. 18 mL 6 4 3:33 PM ECONOMIC HISTORY TEACHER 06/07/20 23 024 Discontin ued(Reord er) clotrimazole (LOTRIMIN) 1% externally creamIndications :Tinea Pedis Apply a thin layer to affected area on feet daily 30 g 4 2:13 PM CDT 06/16/20 24 024 Discontin ued(Reord er) Active Problems Problem Noted Date Diagnosed Date PrEP 06/02/2024 Overview (06/03/2024): Started PrEP 06/02/24. CrCl>90 at initiation Has completed Hep B vaccines Prediabetes 12/15/2022 Drug-induced erectile dysfunction 02/01/2021 Male pattern alopecia 02/01/2021 Class 2 drug-induced obesity without serious comorbidity with body mass index (BMI) of 36.0 to 36.9 in adult 02/01/2021 GERD (gastroesophageal reflux disease) 5 Pain in joint involving ankle and foot 4 Resolved Problems Problem Noted Date Diagnosed Date Resolved Date Primary hypertension 12/15/2022 024 Stage 2 chronic kidney disease 12/15/2022 06/03/2024 Migraine with aura and witho ut status migrainosus, not intractable 02/04/2018 04/12/2021 Immunizations Name Administration Dates Next Due Diphtheria and Tetanus Toxoi d - Adult (Grifols Td) 05/18/1999 Diphtheria and Tetanus Toxoi ds and Whole Cell Pertussis 02/25/1992,06/19/1989,05/18/1987,1986,1986 Diphtheria, Tetanus, and Darron llular Pertussis Vaccine 02/25/1992,06/19/1989,05/18/1987,1986,1986 Hepatitis B (ENGERIX-B) - Ad ults 19 and Older () (Three Dose Series) 11/13/2006,08/18/2005,09/10/2002 Influenza Vaccine 6 Months t hrough Adult - Prefilled 09/01/2015 Influenza Vaccine, Unspecified 09/01/2015 Measles, Mumps, and Rubella Vaccine 05/18/1999,1 Polio (IPV) Vaccine 02/25/1992, 2,06/19/1989,1988,02/18/1987,02/18/1987,1986,0 1986 Tetanus Toxoid, Reduced Diph theroid Toxoid Acellular Pertussis 09/01/2015,05/18/1999 Tetanus and Diphtheria Toxoi ds Adsorbed-Td (TENIVAC) 05/18/1999 Varicella Vaccine 08/18/2005,09/10/2002 Social History Tobacco Use Types Packs/Day Years Used Date Smoking Tobacco: Never Smokeless Tobacco: Never Tobacco Cessation:Counseling Given: Not Answered Alcohol Use Standard Drinks/Week Comments No 0 [...] PM CDT Legal Sex Male 3:14 AM ECONOMIC HISTORY TEACHER Gender Identity Male 10/29/2023 2:13 PM CDT Sexual Orientation Not on file Last Filed Vital Signs Vital Sign Reading Time Taken Comments Blood Pressure 111/88 06/16/2024 3:18 PM CDT Pulse 106 06/16/2024 3:18 PM CDT Temperature 37.4 C (99.3 F) 06/16/2024 3:18 PM CDT Respiratory Rate 17 09/09/2021 8:13 AM ECONOMIC HISTORY TEACHER Oxygen Saturation 100% 05/27/2021 6:07 PM CDT Inhaled Oxygen Concentration - - Weight 93.9 kg (207 lb) 06/16/2024 3:18 PM CDT Height 169 cm (5' 6.54) 03/02/2023 8:20 AM CDT Body Mass Index 32.88 03/02/2023 8:20 AM CDT Plan of Treatment Upcoming Encounters Date Type Department Care Team (Late st Contact Info) Description 08/28/2024 4:00 PM ECONOMIC HISTORY TEACHER Office Visit [facility] [address] [facility] [address] [place] [address] Adi-Ce Forte, CORRECTIONAL TREATMENT SPECIALIST, HEALTH SERVICES ADMINISTRATOR [address] [facility] [address] [place] [address] Capacitor Assembler, Other-Offsite [address] [place] [address] Scheduled Discharge Disposition: Discharged to home or self care Procedures Procedure Name Priority Date/Time Associated Diagnosis Comments PC LAB GLYCOSYLATED HGB Routine 06/16/2024 6:55 PM CDT Prediabetes PC NEISSERIA GONORRHEA AMPLIFIED PROBE TECHNIQUE Routine 06/02/2024 3:40 PM CDT Screening for STDs (sexually transmitted diseases) PC HIV-1 AG W/HIV-1 & HIV-2 AB Routine 06/02/2024 3:40 PM CDT PrEP CREATININE, SERUM Routine 06/02/2024 3:4 0 PM CDT Screening for STDs (sexually transmitted diseases) PC HEPATITIS C Routine 06/02/2024 3:40 PM CDT Screening for STDs (sexually transmitted diseases) HEPATITIS B SURFACE ANTIGEN Routine 06/02/2024 3:40 PM CDT Screening for STDs (sexually transmitted diseases) PC SYPHILIS SCREEN Routine 06/02/2024 3: 40 PM CDT Screening for STDs (sexually transmitted diseases) HIV 1 AND HIV 2 SCREEN Routine 06/02/2024 PrEP from Last 3 Months Results * GLYCOSYLATED HGB - A1C (06/16/2024 6:55 PM CDT) Hemoglobin A1C 5.4 4.0 - 5.6 % [facility] Comment: Increased risk for diabetes (prediabetes): 5.7-6.4% Diabetes >=6.5% In the absence of unequivocal hyperglycemia, diagnosis requires two abnormal test results (i.e. HbA1c and glucose) or two abnormal results from specimens collected at two different timepoints. The presence of some hemoglobin variants or red cell disorders may interfere with the measurement of hemoglobin A1c (HbA1c). Estimated Average Glucose 108 68 - 114 mg/dL [facility] Comment: The estimated Average Glucose (eAG) was calculated using an equation derived from a study of 507 adults with type 1, type 2, or no diabetes. Minority populations were underrepresented and children were not included. The eAG is not equivalent to a fasting glucose concentration. Blood 06/16/2024 6:55 PM CDT 06/16/2024 6:55 PM CDT Ce Stewart APRN, [facility] Final Result Performing Organization Address [facility] [place] [address] * HEPATITIS C ANTIBODY WITH CONDITIONAL PCR (06/02/2024 3:40 PM CDT) Hep C Nai Nonreactive Nonreactive [facility] Comment:Performance characte ristics have not been established with this test on patients less than 10 years of age. Blood 06/02/2024 3:40 PM CDT 06/03/2024 8:50 AM CDT Jas Chavez APRN, [facility] Fin al Result Performing Organization Address [facility] [place] [address] * HIV COMBO (06/02/2024 3:40 PM CDT) HIV Antigen-Antibody Nonreactive Nonreactive [facility] Comment: Collection date/time has been modified to: 15:40:00. Previous collection date/time: 15:40:00. Performance characteristics have not been established with this test on patients less than 2 years of age. Performance characteristics have not been established with this test on patients less than 2 years of age. Corrected from Nonreactive on 06/04/24 8:24:05 CDT by Magalie Woodall Blood 06/02/2024 3:40 PM CDT 06/03/2024 4:11 PM CDT Jas Chavez APRN, [facility] Marek maty Result - Final Performing Organization Address City/[facility]/ZIP Co de Phone Number [facility] [address] [address] * URINE CHLAMYDIA AND NEISSERIAE GONORRHOEAE AMPLIFICATION (06/02/2024 3:40 PM CDT) Chlamydia Amplification - Urine Negative Negative [facility] Comment:Test performed by tr anscription mediated amplification and is FDA approved for genital and urine specimens. N. Gonorrhea Amplification - Urine Negative Negative [facility] Comment:Test performed by tr anscription mediated amplification and is FDA approved for genital and urine specimens. Urine 06/02/2024 3:40 PM CDT 06/02/2024 7:51 PM CDT Narrative [facility] - 06/03/2024 2:35 PM CDT For Urines, use first void. Jas Chavez APRN, CNP LABORATORY Fin al Result Performing Organization Address [facility] Co de Phone Number [address] [address] * RPR SYPHILIS SCREEN (06/02/2024 3:40 PM CDT) Pathologist [facility] RPR Screen Non-Reactive Non-Reacti ve [facility] RPR Titer Not Reflexed [facility] Blood 06/02/2024 3:40 PM CDT 06/02/2024 7:29 PM CDT Jas Chavez APRN, CNP LABORATORY Marek maty Result - Final Performing Organization Address City/[facility]/ZIP Co de Phone Number [facility] [address] [address] * HEPATITIS B SURFACE ANTIGEN (06/02/2024 3:40 PM CDT) Pathologist [facility] HBV Surface Ag Nonreactive Nonreactive [facility] Comment: Testing performed at: [facility] [address] [address] Blood 06/02/2024 3:40 PM CDT 06/03/2024 8:50 AM CDT Jas Chavez CORRECTIONAL TREATMENT SPECIALIST, HEALTH SERVICES ADMINISTRATOR LABORATORY Fin al Result Performing Organization Address [facility] Co de Phone Number [facility] [address] [address] * (ABNORMAL) CREATININE, SERUM (06/02/2024 3:40 PM CDT) Creatinine 0.68(L) 0.70 - 1.25 mg/dL [facility] eGFR (2020 CKD-EPI) >120 >=60 ml/min/1.7 3m2 [facility] Comment: The estimated glomerular filtration rate (eGFR) was calculated using the CKD-EPI 2020 creatinine equation, which does not include race as a factor. This equation is validated in individuals 18 years of age and older, and eGFR is normalized to a body surface area of 1.73m^2. Blood 06/02/2024 3:40 PM CDT 06/03/2024 8:50 AM CDT Jas Chavez APRN, HEALTH SERVICES ADMINISTRATOR LABORATORY Marek maty Result - Final Performing Organization Address [facility] Co de Phone Number [facility] [address] [address] * HIV 1 AND HIV 2 SCREEN (06/02/2024) HIV1&2 Nonreactive Nonreactive [facility] Blood Venous 06/02/2024 Jas Chavez APRN, HEALTH SERVICES ADMINISTRATOR LABORATORY Fin al Result [facility] [address] [place] [address] from Last 3 Months Insurance * Guarantor: Cheng Godfrey Account Type Relation to Patient Date of Phone Billing Address Personal/Family Self 1985 [id number] [place] [address] [facility] * Guarantor: [employer] [facility] Account Type Relation to Patient Date of Phone Billing Address Corporate Other Attn Sharyn Flores [facility] [address] [place] [id number] Care Teams C Java Developer Relationship Specialty Start Date End Date Adi-Ce Forte, CORRECTIONAL TREATMENT SPECIALIST, HEALTH SERVICES ADMINISTRATOR [address] [facility] [address] [place], [place] [phone] PCP - General Family Medicine 01/08/23
--- OUTSIDE RECORDS SUMMARY | 2024-07-23 00:56 | XMS_ITS | Encounter Summary ---
Author Organization [facility] Address [address] [place] [address] Phone Care Team Providers Care Bleacher Pulp Name Role Phone Ce Stewart APRN, CNP Primary Care P rovider Reason for Visit * Reason Comments Follow-up meds Encounter Details Date Type Department Care Team (Late Contact Info) Description 06/16/2024 3:30 PM CDT Office Visit [facility] [address] [facility] [address] [place], [place] [phone] Ce Stewart APRN, CNP [address] [facility] [address] [place] [address] Textile Stylist, Other-Offsite [address] [place] [address] Androgenic alopecia (Primary Dx); Obesity, Class II, BMI 35-39.9; Prediabetes; Tinea pedis, unspecified laterality Discharge Disposition: Discharged to home or self care Social History Tobacco Use Types Packs/Day Years [...] PM CDT Legal Sex Male 3:14 AM CHUCK SPLITTER Gender Identity Male 10/29/2023 2:13 PM CDT Sexual Orientation Not on file documented as of this encounter Last Filed Vital Signs Vital Sign Reading Time Taken Comments Blood Pressure 111/88 06/16/2024 3:18 PM CDT Pulse 106 06/16/2024 3:18 PM CDT Temperature 37.4 C (99.3 F) 06/16/2024 3:18 PM CDT Respiratory Rate - - Oxygen Saturation - - Inhaled Oxygen Concentration - - Weight 93.9 kg (207 lb) 06/16/2024 3:18 PM CDT Height - - Body Mass Index 32.88 03/02/2023 8:20 AM CDT documented in this encounter Progress Notes * Adi-Ce Forte, VINAYAK, INSULATION WORKER INTERIOR SURFACE - 06/16/2024 3:30 PM CDT [facility] Cheng Godfrey : 1985 Sex: male Medical Decision Making: Assessment & Plan 1. Obesity Class II. He will continue on Wegovy 2.4 mg weekly and restart Topamax 25 mg twice a day. He is advised to increase regular physical activity, including strength training 1-2 times a week. His total weight loss is 45 pounds from his top weight of 249 pounds in November 2022. He is not a candidate for phentermine. If there is no improvement in weight loss, other medications may be considered. 2. Androgenic Alopecia. He will stop taking his current dose of minoxidil and start finasteride 1.25 mg daily. Additionally, he will use minoxidil 5% external foam, applying half a capful twice daily to the scalp. The excessive dose of minoxidil he was taking (at least 10 mg daily) is not indicated and has been discontinued. 3. Prediabetes. His hemoglobin A1c has improved to 5.4% from 5.7% on 03/02/2023. He will continue on Wegovy to helpstabilize blood sugars and maintain his current weight. Lifestyle changes will also be continued. 4. Tinea Pedis. Lotrimin 1% external cream will be applied to the affected areas on the feet daily. He is advised to change his socks regularly and keep his feet dry. Follow up if there is no improvement. Follow-up Return in 3 months for follow up. Subjective History of Present Illness The patient presents to the clinic today to address the following issues. He has been under treatment for class 2 obesity and is currently on Wegovy 2.4 mg weekly without any complications such as nausea, vomiting, or constipation. Despite a significant weight loss of 45 pounds from his peak weight of 249 pounds in 11/2022, he feels his weight loss has plateaued. He was previously on Topamax 25 mg twice daily but has been without it for several months. He expresses frustration over his perceived lack of further weight loss and is considering increasing his medicationdosage or exploring other options. He admits to not exercising regularly or engaging in strength training but notes a decrease in appetite since starting Wegovy and is mindful of his diet. He also expresses concern about ongoing hair loss and androgenic alopecia. He has been self-medicating with minoxidil at higher than recommended doses, reportedly taking at least 10 mg daily. His prediabetes was also addressed during this visit. His hemoglobin A1c level has improved to 5.4 percent from a previous reading of 5.7 percent on 03/02/2023. Continuing on Wegovy is expected to help stabilize his blood sugar levels and maintain his current weight, which is likely contributing tothe improvement in his hemoglobin A1c. He reports a red, itchy rash on his feet and between his toes, indicative of a fungal infection. Hehas not been using any treatments for this condition. Objective Vitals: 06/16/24 1518 BP: 111/88 Pulse: 106 Temp: 37.4 ??C (99.3 ??F) TempSrc: Tympanic Weight: 93.9 kg (207 lb) Estimated body mass index is 32.88 kg/m?? as calculated from the following: Height as of 03/02/23: 1.69 m (5' 6.54). Weight as of this encounter: 93.9 kg (207 lb). Vitals: 06/16/24 1518 BP: 111/88 Pulse: 106 Temp: 37.4 ??C (99.3 ??F) TempSrc: Tympanic Weight: 93.9 kg (207 lb) Physical Exam Patient is alert and oriented x3. Pupils are equal and reactive to light. Skin is warm. Examination of the feet reveals scaly redness in the soles of the feet and macerated tissue between the toes. Results Laboratory Studies Hemoglobin A1c is 5.4%. Attestation Today's visit was securely recorded for purposes of note generation via [employer] ([employer]). Verbal consent was obtained form the patient. Ce Zambrano APRN, CNP, have reviewed the draft documentation generated by AI and appropriate revisions for the final version have been made by me. Discussed treatment plan with patient and/or guardian. All questions were answered and different treatment options were given. Side effects and outcomes expected were discussed. See AVS for further details. Ce Stewart APRN, CNP, 06/17/2024 3:01 PM documented in this encounter Plan of Treatment Upcoming Encounters Date Type Department Care Team (Late st Contact Info) Description 08/28/2024 4:00 PM CHUCK SPLITTER Office Visit [facility] [address] [facility] [address] [place], [place] [phone] Ce Stewart APRN, CNP [address] [facility] [address] [place], [place] [phone] Textile Stylist, Other-Offsite [address] [place] [address] Scheduled Discharge Disposition: Discharged to home or self care documented as of this encounter Procedures Procedure Name Priority Date/Time Associated Diagnosis Comments LAB GLYCOSYLATED HGB Routine 06/16/2024 6:55 PM CDT Prediabetes documented in this encounter Results * GLYCOSYLATED HGB - A1C (06/16/2024 6:55 PM CDT) Hemoglobin A1C 5.4 4.0 - 5.6 % [facility] Comment: Increased risk for diabetes (prediabetes): [...] Average Glucose 108 68 - 114 mg/dL [facility] Comment: The estimated Average Glucose (eAG) was calculated using an equation derived from a study of 507 adults with type 1, type 2, or no diabetes. Minority populations were underrepresented and children were not included. The eAG is not equivalent to a fasting glucose concentration. Blood 06/16/2024 6:55 PM CDT 06/16/2024 6:55 PM CDT Ce Stewart APRN, CNP LABORATORY Final Result [facility] [address] [address] documented in this encounter Visit Diagnoses Diagnosis Androgenic alopecia- Primary Other alopecia Obesity, Class II, BMI 35-39.9 Obesity, unspecified Prediabetes Other abnormal glucose Tinea pedis, unspecified laterality documented in this encounter Additional Health Concerns Assessment Noted Time PHQ-9 Depression Total Score: 2 02/02/20 21 9:23 AM CDT PHQ-2 Depression Total Score: 1 02/02/20 21 9:23 AM CDT documented as of this encounter Care Teams Bleacher Pulp Relationship Specialty Start Date End Date Ce Stewart APRN, INSULATION WORKER INTERIOR SURFACE [address] [facility] [address] [place] [address] PCP - General Family Medicine 01/08/23 documented as of this encounter
--- OUTSIDE RECORDS SUMMARY | 2024-07-23 00:56 | XMS_ITS | Encounter Summary ---
Author Organization [facility] Address [address] [facility] [address] 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 [address] [place], [place] [phone] Marketing Specialist, Other-Offsite [address] [place] [address] Scheduled Discharge Disposition: Discharged to home or self care documented as of this encounter Visit Diagnoses Diagnosis Obesity, Class II, BMI 35-39.9 Obesity, unspecified documented in this encounter Additional Health Concerns Assessment Noted Time PHQ-9 Depression Total Score: 2 02/02/20 21 9:23 AM CDT PHQ-2 Depression Total Score: 1 02/02/20 21 9:23 AM CDT documented as of this encounter Care Teams Child Care Team Lead Relationship Specialty Start Date End Date Ce Stewart APRN, FINANCIAL ASSISTANT [address] [facility] [address] [place], [place] [phone] PCP - General Family Medicine 01/08/23 documented as of this encounter
--- OUTSIDE RECORDS SUMMARY | 2024-07-23 00:56 | XMS_ITS ---
Author Organization [facility] Address [address] [place] [address] [address] [place] [address] Care Team Providers Care Dental Professional Name Role Phone Sammy Cunningham Primary Care Provider [phone] Marysol III [place], Stanely Unavailable Unavaila Mirza Hernandez [phone] REASON FOR VISIT geico Encounters Encounter Location Date Provider Diagnosis [facility] [address] [place] [address] 06/26/2024 Mirza Delarosa Plan Of Treatment Next Appt Details Provider Name:Ever Patricia, 1 09/24/2023 02:45:00 PM, [address], [place], [address], Provider Name:Michelle Albrecht iger, 08/05/2024 05:00:00 PM, [address], [place], [address], Progress Notes * Basil RATLIFFOB: 7 (38 yo M)Acc No.[id number]:06/26/2024 Patient: Martin CARLOSEZCheng :1985 A ge:38 Y S ex:Male Phone: Address:[address] [place], [address] * * Date:
--- OUTSIDE RECORDS SUMMARY | 2024-07-23 00:56 | XMS_ITS | Encounter Summary ---
Author Organization [facility] Address [address] 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 Gender Identity Male 10/29/2023 2:13 PM CDT Sexual Orientation Not on file documented as of this encounter Plan of Treatment Upcoming Encounters Date Type Department Care Team (Late st Contact Info) Description 08/28/2024 4:00 PM BUTTON BREAKER Office Visit [facility] [address] [facility] [address] [place] [address] Ce Stewart APRN, MAURA [address] [address] Conference Translator, Other-Offsite [address] [place] [address] Scheduled Discharge Disposition: Discharged to home or self care documented as of this encounter Visit Diagnoses Not on filedocumented in this encounter Additional Health Concerns Assessment Noted Time PHQ-9 Depression Total Score: 2 02/02/20 21 9:23 AM CDT PHQ-2 Depression Total Score: 1 02/02/20 21 9:23 AM CDT documented as of this encounter Care Teams Atmospheric Drier Tender Relationship Specialty Start Date End Date Adi-Ce Forte APRN, CNP [address] [address] PCP - General Family Medicine 01/08/23 documented as of this encounter
--- OUTSIDE RECORDS SUMMARY | 2024-07-23 00:56 | XMS_ITS | Encounter Summary ---
Author Organization [facility] Address [address] 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 [address] [place], [place] [address] Chainstitch Hemmer, Other-Offsite [address] [place] [address] Scheduled Discharge Disposition: Discharged to home or self care documented as of this encounter Visit Diagnoses Diagnosis Obesity, Class II, BMI 35-39.9 Obesity, unspecified documented in this encounter Additional Health Concerns Assessment Noted Time PHQ-9 Depression Total Score: 2 02/02/20 21 9:23 AM CDT PHQ-2 Depression Total Score: 1 02/02/20 21 9:23 AM CDT documented as of this encounter Care Teams Printing Mechanist Relationship Specialty Start Date End Date Ce Stewart APRN, LENS ASSORTER [address] [facility] [address] [place], [place] [phone] PCP - General Family Medicine 01/08/23 documented as of this encounter
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
--- OUTSIDE RECORDS SUMMARY | 2024-07-23 00:56 | XMS_ITS | Encounter Summary ---
Author Organization [facility] Address [address] [place] [address] Care Team Providers Care Library Technical Assistant Name Role Phone No Primary/Referring, Phy Primary Care Provider Unavailable Encounter Details Date Type Department Care Team (Late st Contact Info) Description 01/17/2024 Notes/Orders Orthopedics at [facility] Orthopedics at [place] [address] [place] [id number] [place] [address] [place] [address] [address] [place], [place] [address] Social History Tobacco Use Types Packs/Day Years [...] as of this encounter Plan of Treatment Not on file documented as of this encounter Visit Diagnoses Not on filedocumented in this encounter Care Teams Library Technical Assistant Relationship Specialty Start Date End Date No Primary/Referring, Phy PCP - General 05/15/14 documented as of this encounter
--- OUTSIDE RECORDS SUMMARY | 2024-07-23 00:56 | XMS_ITS | Clinical Summary ---
Author Organization [employer] Address [address] [place] [address] Phone Care Team Providers Care Tearer Press Clipping Name Role Phone Ce Stewart APRN, MAURA Primary Care P mark Source Comments [employer] is fully rolled out on [employer]. Last update 01/22/09.[employer] Allergies No known active allergies Medications * [...] Dysfunction. 30 tablet 3 3 2:34 PM EXCHANGE OPERATOR 12/15/19 23 Active terazosin (HYTRIN) 1 mg [...] if needed 20 tablet 3 8:46 AM EXCHANGE OPERATOR 06/27/20 23 Active emtricitabine-te nofovir (TRUVADA) 200-300 [...] daily. 60 g 3 4 11:02 AM EXCHANGE OPERATOR 06/16/20 24 Active topiramate (TOPAMAX) 25 mg oral tabletIndication s:Obesity, Class II, BMI 35-39.9 Take 1 tablet (25 mg) by mouth twice daily. 180 tablet 1 4 2:53 PM EXCHANGE OPERATOR 06/16/20 24 Active clotrimazole (LOTRIMIN) 1% externally creamIndications :Tinea Pedis Apply a thin layer to affected area on feet daily 30 g 06/30/20 24 Active semaglutide-weig ht management (WEGOVY) 2.4 mg/0.75 mL subcutaneous auto-injector penIndications:O besity, Class II, BMI 35-39.9 Inject 1 pen (2.4 mg) subcutaneously weekly for weight management. 18 mL 6 4 11:02 AM EXCHANGE OPERATOR 06/30/20 Active semaglutide-weig ht management (WEGOVY) 2.4 mg/0.75 mL subcutaneous auto-injector penIndications:O besity, Class II, BMI 35-39.9 Inject 1 pen (2.4 mg) subcutaneously weekly for weight management. 18 mL 6 4 3:33 PM EXCHANGE OPERATOR 06/07/20 024 Discontin ued(Reord er) clotrimazole (LOTRIMIN) 1% [...] ut status migrainosus, not intractable 02/04/2018 04/12/2021 Encounters * This document contains information received from the source organization and may not represent a complete record from that organization. Date Type Department Care Team Description 06/30/2024 Refill [facility] [address] [facility] [address] [place] [address] Ce Stewart, ASSEMBLY LEADER, APPLIED ANTHROPOLOGIST Refill Request 06/30/2024 Refill [facility] [address] [facility] [address] [place] [address] Ce Stewart APRN, APPLIED ANTHROPOLOGIST Refill Request 06/16/2024 3:30 PM CDT Office Visit [facility] [address] [place] [address] Ce Stewart APRN, APPLIED ANTHROPOLOGIST [place], Other-Offsite Androgenic alopecia (Primary Dx); Obesity, Class II, BMI 35-39.9; Prediabetes; Tinea pedis, unspecified laterality Discharge Disposition: Discharged to home or self care 06/16/2024 Travel 06/05/2024 Refill [facility] [address] [facility] [address] [place] [address] Ce Stewart APRN, APPLIED ANTHROPOLOGIST Refill Request 06/02/2024 Travel from Last 3 Months Immunizations Name Administration Dates Next Due Diphtheria [...] PM CDT Legal Sex Male 3:14 AM EXCHANGE OPERATOR Gender Identity Male 10/29/2023 2:13 PM CDT Sexual Orientation Not on file Last Filed Vital Signs Vital Sign Reading Time Taken Comments Blood Pressure 111/88 06/16/2024 3:18 PM CDT Pulse 106 06/16/2024 3:18 PM CDT Temperature 37.4 C (99.3 F) 06/16/2024 3:18 PM CDT Respiratory Rate 17 09/09/2021 8:13 AM EXCHANGE OPERATOR Oxygen Saturation 100% 05/27/2021 6:07 PM CDT Inhaled Oxygen Concentration - - Weight 93.9 kg (207 lb) 06/16/2024 3:18 PM CDT Height 169 cm (5' 6.54) 03/02/2023 8:20 AM CDT Body Mass Index 32.88 03/02/2023 8:20 AM CDT Plan of Treatment Upcoming Encounters Date Type Department Care Team (Late st Contact Info) Description 08/28/2024 4:00 PM EXCHANGE OPERATOR Office Visit [facility] [address] [facility] [address] [place] [address] Adi-Ce Forte, ASSEMBLY LEADER, APPLIED ANTHROPOLOGIST [address] [facility] [address] [place] [address] [facility], Other-Offsite [address] [place] [address] Scheduled Discharge Disposition: Discharged to home or self care Health Maintenance Due Date Last Done Comments Dental Oral Exam 1986 Dental Prophylaxis 1986 Dental X-Ray: Bitewings 1986 Imm: Pneumonia Peds or At-Risk less than 65 years (1 of 2 - PCV) 1992 Periodontal Maintenance 2000 Imm: Zoster (1 of 2) 10/13/2005 Imm: COVID-19 (3 - Pfizer risk series) 02/08/2021 01/11/2021, 12/21/2020 PREVENTATIVE VISIT 02/01/2022 02/01/2021, 0 09/01/2015, 03/02/2008 HEALTH MAINTENANCE PROTOCOL 03/02/202402/17, 10/09/2018, 09/01/2015 Imm: Flu (#1) 04/20/2024 09/01/2015, 09/01/2015 MEDICATION REFILL PROTOCOL 06/30/202506/30, 03/02/2023, 02/07/2021, Additional history exists Imm: DTaP/Tdap (9 - Td or Tdap) 09/01/2025 09/01/2015, 05/18/1999, 05/18/1999, Additional history exists Imm: HepB Completed 11/13/2006, 07/22, 09/10/2002 HIV Screening Completed 06/02/2024, 05/20, 10/29/2023, Additional history exists Imm: HPV Aged Out No longer eligi ble based on patient's age to complete this topic Imm: HepA Aged Out No longer eligi ble based on patient's age to complete this topic Imm: Hib Aged Out No longer eligi ble based on patient's age to complete this topic Imm: Meningitis Aged Out No longer el igible based on patient's age to complete this topic Procedures Procedure Name Priority Date/Time Associated Diagnosis [...] Hemoglobin A1C 5.4 4.0 - 5.6 % [facility] Comment: Increased risk for diabetes (prediabetes): [...] Average Glucose 108 68 - 114 mg/dL [facility] Comment: The estimated Average Glucose (eAG) was calculated using an equation derived from a study of 507 adults with type 1, type 2, or no diabetes. Minority populations were underrepresented and children were not included. The eAG is not equivalent to a fasting glucose concentration. Blood 06/16/2024 6:55 PM CDT 06/16/2024 6:55 PM CDT Ce Stewart ASSEMBLY LEADER, APPLIED ANTHROPOLOGIST LABORATORY Final Result [facility] [address] [place] [address] * HEPATITIS C ANTIBODY WITH CONDITIONAL PCR (06/02/2024 3:40 PM CDT) Hep C Nai Nonreactive Nonreactive [facility] Comment:Performance characte ristics have not been established with this test on patients less than 10 years of age. Blood 06/02/2024 3:40 PM CDT 06/03/2024 8:50 AM CDT Jas Chavez APRN, APPLIED ANTHROPOLOGIST LABORATORY Fin al Result Performing Organization Address City/[facility]/ZIP Co de Phone Number [facility] [address] [address] * HIV COMBO (06/02/2024 3:40 PM CDT) Pathologist [facility] HIV Antigen-Antibody Nonreactive Nonreactive [facility] Comment: Collection date/time has been modified [...] 06/03/2024 4:11 PM CDT Jas Chavez APRN, APPLIED ANTHROPOLOGIST LABORATORY Marek maty Result - Final [facility] [address] [address] * URINE CHLAMYDIA AND NEISSERIAE GONORRHOEAE AMPLIFICATION (06/02/2024 3:40 PM CDT) Chlamydia Amplification - Urine Negative Negative [facility] Comment:Test performed by tr anscription mediated amplification and is FDA approved for genital and urine specimens. N. Gonorrhea Amplification - Urine Negative Negative [facility] Comment:Test performed by tr anscription mediated amplification and is FDA approved for genital and urine specimens. Urine 06/02/2024 3:40 PM CDT 06/02/2024 7:51 PM CDT Narrative [facility] - 06/03/2024 2:35 PM CDT For Urines, use first void. Jas Chavez APRN, CNP LABORATORY Fin al Result Performing Organization Address City/[facility]/ZIP Co de Phone Number [address] [address] * RPR SYPHILIS SCREEN (06/02/2024 3:40 PM CDT) RPR Screen Non-Reactive Non-Reacti ve [facility] RPR Titer Not Reflexed [facility] Blood 06/02/2024 3:40 PM CDT 06/02/2024 7:29 PM CDT Jas Chavez APRN, CNP LABORATORY Marek maty Result - Final Performing Organization Address [facility] Co de Phone Number [address] [address] * HEPATITIS B SURFACE ANTIGEN (06/02/2024 3:40 PM CDT) HBV Surface Ag Nonreactive Nonreactive [facility] Comment: Testing performed at: [facility] [address] [address] Blood 06/02/2024 3:40 PM CDT 06/03/2024 8:50 AM CDT us Jas Chavez APRN, CNP LABORATORY Fin al Result Performing Organization Address City/[facility] Co de Phone Number [address] [address] * (ABNORMAL) CREATININE, SERUM (06/02/2024 3:40 PM CDT) Creatinine 0.68(L) 0.70 - 1.25 mg/dL [facility] eGFR (2020 CKD-EPI) >120 >=60 ml/min/1.7 3m2 [facility] Comment: The estimated glomerular filtration rate (eGFR) was calculated using the CKD-EPI 2020 creatinine equation, which does not include race as a factor. This equation is validated in individuals 18 years of age and older, and eGFR is normalized to a body surface area of 1.73m^2. Blood 06/02/2024 3:40 PM CDT 06/03/2024 8:50 AM CDT Jas Chavez APRN, MAURA LABORATORY Marek maty Result - Final [facility] [address] [place] [address] * HIV 1 AND HIV 2 SCREEN (06/02/2024) HIV1&2 Nonreactive Nonreactive [facility] Blood Venous 06/02/2024 Jas Chavez APRN, MAURA LABORATORY Fin al Result [facility] [address] [place] [address] from Last 3 Months Insurance [facility] * Guarantor: [employer] [facility] Account Type Relation to Patient Date of Phone Billing Address Corporate Other Attn Sharyn Flores [address] [address] Care Teams Tearer Press Clipping Relationship Specialty Start Date End Date Adi-Ce Forte, ASSEMBLY LEADER, APPLIED ANTHROPOLOGIST [address] [place] [address] PCP - General Family Medicine 01/08/23
--- OUTSIDE RECORDS SUMMARY | 2024-07-23 00:56 | XMS_ITS | Encounter Summary ---
Author Organization [facility] Address [address] [place] [address] Care Team Providers Care Portfolio Analyst Name Role Phone No Primary/Referring, Phy Primary Care Provider Unavailable Encounter Details Date Type Department Care Team (Late st Contact Info) Description 03/06/2024 Notes/Orders Orthopedics at [facility] Orthopedics at [place] [address] [place] [address] [place] [address] [place] [address] [address] [place], [place] [address] Social History Tobacco Use Types Packs/Day Years [...] on filedocumented in this encounter Care Teams Portfolio Analyst Relationship Specialty Start Date End Date No Primary/Referring, Phy PCP - General 05/15/14 documented as of this encounter
--- OUTSIDE RECORDS SUMMARY | 2024-07-23 00:56 | XMS_ITS ---
Author Organization [facility] Address [address] [place] [address] [address] [place] [address] Care Team Providers Care Fundraiser Name Role Phone Sammy Cunningham Primary Care Provider [phone] Marysol III DC, Stanely Unavailable Unavaila Cliff Kohler Unavailable [phone] REASON FOR VISIT sched doesnt work with pt Encounters Encounter Location Date Provider Diagnosis BV [address] [facility] [address] [place] [address] 07/16/2024 Cliff Guerra Plan Of Treatment Next Appt Details Provider Name:Ever Patricia, 1 09/24/2023 02:45:00 PM, [address], [address], [place], [address], Provider Name:Michelle Rizvi Ambrocio iger, 08/05/2024 05:00:00 PM, [address], [place], [address], Progress Notes * Lyle GODFREY: 7 (38 yo M)Acc No.[id number]:07/16/2024 Progress Notes Patient: Cheng HUERTA Provider: Felisa Guerra NP :1985 A ge:38 Y S ex:Male Date:07/16/2024 Phone: Address:[address] [place], [place] Pcp:Sammy Cunningham Subjective: * Chief Complaints: * 1 . Sched doesnt work with pt. * Medical History: Objective: * Vitals: Assessment: Plan: * Treatment: * Billing Information: * Visit Code: * Procedure Codes: * Electronic signature of Giovany Guerra CNP on 07/23/2024 at 12:56 AM AUTOMOBILE MECHANIC Sign off status: Pending * Provider: Felisa Guerra NP Date: 09/15/2023 Generated for Kaushal washburn/Mando on: 09/23/2023 12:56 AM AUTOMOBILE MECHANIC
--- OUTSIDE RECORDS SUMMARY | 2024-07-23 00:56 | XMS_ITS | Encounter Summary ---
Author Organization [facility] Address [address] [place] [address] Care Team Providers Care Engineering Document Control Clerk Name Role Phone No Primary/Referring, Phy Primary Care Provider Unavailable Encounter Details Date Type Department Care Team (Late st Contact Info) Description 01/17/2024 Notes/Orders Orthopedics at [facility] Orthopedics at [place] [address] [place] [address] [place] [address] [place] [address] [address] [place], [place] [id number] Social History Tobacco Use Types Packs/Day Years [...] on filedocumented in this encounter Care Teams Engineering Document Control Clerk Relationship Specialty Start Date End Date No Primary/Referring, Phy PCP - General 05/15/14 documented as of this encounter
--- OUTSIDE RECORDS SUMMARY | 2024-07-23 00:57 | XMS_ITS | Encounter Summary ---
Author Organization [facility] Address [address] [place] [address] Care Team Providers Care Drywall Installer Name Role Phone Isabel Valderrama NP Primary Care Provider [phone] Gene Burroughs MD Unavailable Amy Sierra MD Unavailable [phone] Isabel Valderrama NP Unavailable [phone] Encounter Details Date Type Department Care Team (Late st Contact Info) Description 10/23/2021 Documentation Only INTERFACED REPORT Unknown, Provider Social History Tobacco Use Types Packs/Day Years Used Date Smoking Tobacco: Never Smokeless Tobacco: Never Alcohol Use Standard Drinks/Week Comments No 0 (1 standard drink = 0.6 oz pur e alcohol) PHQ-2 Answer Date Recorded PHQ-2 Score 6 08/03/2021 Sex and Gender Information Value Date Recorded Sex Assigned at Not on file Legal Sex Male 4:45 AM MEDICAL INSURANCE CLAIMS PROCESSOR Gender Identity Not on file Sexual Orientation Not on file COVID-19 Exposure Response Date Recorded In the last month, have you been in contact with someone who was confirmed or suspected to have Coronavirus / COVID-19? No / Unsure 10/25/2021 8:13 AM MEDICAL INSURANCE CLAIMS PROCESSOR documented as of this encounter Plan of Treatment Not on file documented as of this encounter Visit Diagnoses Not on filedocumented in this encounter Additional Health Concerns Assessment Noted Time PHQ-9 Depression Total Score: 16 08/03/ 021 8:34 AM MEDICAL INSURANCE CLAIMS PROCESSOR documented as of this encounter Care Teams Drywall Installer Relationship Specialty Start Date End Date Isabel Valderrama NP [address] [address] PCP - General Family Medicine 08/11/21 Gene Burroughs MD [address] [place] [address] Assigned PCP 09/25/21 11/17/22 Aym Sierra MD [address] [place] [address] Neurology 01/26/22 Isabel Valderrama NP [address] [place] [address] Assigned PCP 11/18/22 documented as of this encounter
--- OUTSIDE RECORDS SUMMARY | 2024-07-23 00:57 | XMS_ITS | Referral Summary ---
Author Organization [facility] Address [address] [place] [address] Care Team Providers Care Farmworker Livestock Name Role Phone Isabel Valderrama NP Primary Care Provider [phone] Amy Sierra MD Unavailable [phone] Isabel Valderrama NP Unavailable [phone] Encounters Date Type Department Care Team Description 05/07/2024 Refill [facility] [address] [place] [address] Isabel Valderrama, JESSE Medication Refill from Last 3 Months Allergies Active Allergy Reactions Criticality Noted Date Comments Latex Other (See Comments) 11/08/2022 Medications SUMAtriptan (IMITREX) 100 MG tabletIndications :Other migraine without status migrainosus, not intractable 100mg one time. May repeat 100 mg once again, up to a maximum of 200mg in 24 hours. 20 tablet 3 1 Active lisinopril (ZESTRIL) 20 MG tabletIndications :Benign essential hypertension Take 1 tablet (20 mg) by mouth daily 90 tablet 1 3 Active ibuprofen (ADVIL/MOTRIN) 100 MG/5ML suspensionIndicat ions:Moderate pain Take 30 mLs (600 mg) by mouth every 6 hours as needed for fever or moderate pain (4-6) 473 mL 1 3 Active minoxidil (LONITEN) 2.5 MG tabletIndications :Hair loss Take 1 tablet (2.5 mg) by mouth daily 60 tablet 2 4 Active topiramate (TOPAMAX) 25 MG tabletIndications :Migraine without aura and without status migrainosus, not intractable TAKE 1 TABLET BY MOUTH AT BEDTIME X1 WEEK, THEN 1 TABLET TWICE DAILY X1WEEK, THEN 1 IN AM AND 2 IN PM X1 WEEK, THEN 2 TABLETS TWICE DAILY. 70 tablet 4 Active Active Problems Problem Noted Date Diagnosed Date Morbid obesity 12/07/2022 Pain in joint involving ankle and foot 4 Resolved Problems Problem Noted Date Diagnosed Date Resolved Date Acute pain of right knee 09/10/202105/2022 Pain in joint involving ankle and foot, right 09/10/1912/27/2021 Lumbago 09/15/2006 10/12/2006 Immunizations Name Administration Dates Next Due DTAP (<7y) 02/25/1992, 9,05/18/1987,1986,1986 Hepatitis B, Adult 11/13/2006,08/18/2005, 003 Historical DTP/aP 02/25/1992, 9,05/18/1987,1986,1986 Influenza Vaccine >6 months,quad, PF 09/01/2015 MMR 05/18/1999,06/19/1989 Poliovirus, inactivated (IPV) 02/25/1992 ,06/19/1989,02/18/1987,1986 TD,PF 7+ (Tenivac) 05/18/1999 TDAP (Adacel,Boostrix) 09/01/2015,05/18/1999 Varicella 08/18/2005,09/10/2002 Social History Tobacco Use Types Packs/Day Years Used Date Smoking Tobacco: Never Smokeless Tobacco: Never Tobacco Cessation:Counseling Given: Not Answered Alcohol Use Standard Drinks/Week Comments No 0 (1 standard drink = 0.6 oz pur e alcohol) PHQ-2 Answer Date Recorded PHQ-2 Score 0 01/21/2024 Adolescent Education Answer Date Record ed Getting School Help Needed Not on file 05/31 Food Insecurity Answer Date Recorded Within the past 12 months, d id you worry that your food would run out before you got money to buy more? No 12/31/2023 Within the past 12 months, d id the food you bought just not last and you didn t have money to get more? No 12/31/2023 Housing Stability Answer Date Recorded Do you have housing? (Amina mota is defined as stable permanent housing and does not include staying ouside in a car, in a tent, in an abandoned building, in an overnight penitentiary, or couch-surfing.) Yes 12/31/2023 Are you worried about losing your housing? No 12/31/2023 Financial Resource Strain Answer Date R ecorded Within the past 12 months, h ave you or your family members you live with been unable to get utilities (heat, electricity) when it was really needed? No 12/31/2023 Transportation Needs Answer Date Record ed Within the past 12 months, h as lack of transportation kept you from medical appointments, getting your medicines, non-medical meetings or appointments, work, or from getting things that you need? No 12/31/2023 Interpersonal Safety Answer Date Record ed Do you feel physically and e motionally safe where you currently live? Yes 12/31/2023 Within the past 12 months, h ave you been hit, slapped, kicked or otherwise physically hurt by someone? No 12/31/2023 Within the past 12 months, h ave you been humiliated or emotionally abused in other ways by your partner or ex-partner? No 12/31/2023 Sex and Gender Information Value Date Recorded Sex Assigned at Not on file Legal Sex Male 4:45 AM COTTON WEIGHER OPERATOR Gender Identity Not on file Sexual Orientation Not on file Last Filed Vital Signs Vital Sign Reading Time Taken Comments Blood Pressure 128/85 01/21/2024 4:12 PM CDT Pulse 81 01/21/2024 4:12 PM CDT Temperature 37.1 C (98.8 F) 01/21/2024 4:12 PM CDT Respiratory Rate 18 07/17/2023 8:40 AM COTTON WEIGHER OPERATOR Oxygen Saturation 98% 01/21/2024 4:12 PM CDT Inhaled Oxygen Concentration - - Weight 93.9 kg (207 lb) 01/21/2024 4:12 PM CDT Height 168.9 cm (5' 6.5) 01/21/2024 4:12 PM CDT Body Mass Index 32.91 01/21/2024 4:12 PM CDT Plan of Treatment Not on file Procedures Procedure Name Priority Date/Time Associated Diagnosis Comments COMPREHENSIVE METABOLIC PANEL Routine 12/31/2023 8:53 AM CDT Pre-op exam from Last 3 Months or Most Recently Relevant to Health Maintenance Results * (ABNORMAL) Comprehensive metabolic panel (12/31/2023 8:53 AM CDT) Sodium 139 135 - 145 mmol/L 01/01/2024 3:42 AM CDT [facility] Comment:Reference intervals for this test were updated on 05/15/2023 to more accurately reflect our healthy population. There may be differences in the flagging of prior results with similar values performed with this method. Interpretation of those prior results can be made in the context of the updated reference intervals. Potassium 4.3 3.4 - 5.3 mmol/L 01/01/2024 3:42 AM CDT [facility] Carbon Dioxide (CO2) 21(L) 22 - 29 mmol/L 01/01/2024 3:42 AM CDT [facility] Anion Gap 12 7 - 15 mmol/L 01/01/2024 3:42 AM CDT [facility] Urea Nitrogen 17.1 6.0 - 20.0 mg/dL 01/01/2024 3:42 AM CDT [facility] Creatinine 0.69 0.67 - 1.17 mg/dL 01/01/2024 3:42 AM CDT [facility] GFR Estimate >90 >60 mL/min/1. 73m2 01/01/2024 3:42 AM CDT [facility] Calcium 9.4 8.6 - 10.0 mg/dL 01/01/2024 3:42 AM CDT [facility] Chloride 106 98 - 107 mmol/L 01/01/2024 3:42 AM CDT [facility] Glucose 82 70 - 99 mg/dL 01/01/2024 3:42 AM CDT [facility] Alkaline Phosphatase 100 40 - 150 U/L 01/01/2024 3:42 AM CDT [facility] Comment:Reference intervals for this test were updated on 07/03/2023 to more accurately reflect our healthy population. There may be differences in the flagging of prior results with similar values performed with this method. Interpretation of those prior results can be made in the context of the updated reference intervals. AST 26 0 - 45 U/L 01/01/2024 3:42 AM CDT [facility] Comment:Reference intervals for this test were updated on 01/29/2023 to more accurately reflect our healthy population. There may be differences in the flagging of prior results with similar values performed with this method. Interpretation of those prior results can be made in the context of the updated reference intervals. ALT 31 0 - 70 U/L 01/01/2024 3:42 AM CDT [facility] Comment:Reference intervals for this test were updated on 01/29/2023 to more accurately reflect our healthy population. There may be differences in the flagging of prior results with similar values performed with this method. Interpretation of those prior results can be made in the context of the updated reference intervals. Protein Total 7.6 6.4 - 8.3 g/dL 01/01/2024 3:42 AM CDT [facility] Albumin 4.8 3.5 - 5.2 g/dL 01/01/2024 3:42 AM CDT [facility] Bilirubin Total 0.6 <=1.2 mg/dL 01/01/2024 3:42 AM CDT [facility] Blood BLOOD SPECIMEN / Unknown Venipuncture / Unknown 12/31/2023 8:53 AM CDT 12/31/2023 8:53 AM CDT us Isabel Valderrama INSTRUMENT MECHANIC WEAPONS SYSTEM LAB - BLOOD ORDERABLES Final Result [facility] [address] [facility], [address] [place] [address] from Last 3 Months or Most Recently Relevant to Health Maintenance Insurance [facility] CHOICE Member Subscriber Plan / Payer (Ef fective 2023-Present) Name:Cheng Godfrey Relation to Subscriber:Self Name:Cheng Godfrey Payer ID:[id number] (NAIC) Type:Indemnity Address: [address] CHOICE CHOICE SENTRY CLAIMS nub card tender [facility] CLAIMS MANAGEMENT ESIS [employer] CLAIMS MANAGEMENT Care Teams Farmworker Livestock Relationship Specialty Start Date End Date Isabel Valderrama NP [address] [place] [address] [phone] PCP - General Family Medicine 08/11/21 Amy Sierra MD [address] [place] [address] [id number] Neurology 01/26/22 Isabel Valderrama NP [address] [place] [address] Assigned PCP 11/18/22
--- OUTSIDE RECORDS SUMMARY | 2024-07-23 00:57 | XMS_ITS | Clinical Summary ---
Author Organization [facility] Address [address] [place] [address] Care Team Providers Care Community Health Advisor Name Role Phone Isabel Valderrama NP Primary Care Provider [phone] Amy Sierra MD Unavailable [phone] Isabel Valderrama NP Unavailable Allergies Active Allergy Reactions Criticality Noted Date [...] and foot, right 09/10/1912/27/2021 Lumbago 09/15/2006 10/12/2006 Encounters Date Type Department Care Team Description 05/07/2024 [facility]ill [facility] [address] [address] Isabel Valderrama, JESSE Medication Refill from Last 3 Months Immunizations Name Administration Dates Next Due DTAP (<7y) 02/25/1992, 9,05/18/1987,1986,1986 Hepatitis B, Adult 11/13/2006,08/18/2005, 003 Historical DTP/aP 02/25/1992, 9,05/18/1987,1986,1986 Influenza Vaccine >6 months,quad, PF 09/01/2015 MMR 05/18/1999,06/19/1989 Poliovirus, inactivated (IPV) 02/25/1992 ,06/19/1989,02/18/1987,1986 TD,PF 7+ (Tenivac) 05/18/1999 TDAP (Adacel,Boostrix) 09/01/2015,05/18/1999 Varicella 08/18/2005,09/10/2002 Family History Medical History Relation Comments Diabetes Mother Cancer No family hx of Heart Failure No family hx of Hyperlipidemia No family hx of Hypertension No family hx of Relation Status Comments Father Alive Maternal Grandfather Maternal Grandmother Alive Mother Alive Paternal Grandfather Paternal Grandmother Alive Social History Tobacco Use Types Packs/Day Years [...] on file 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 Gender Identity Not on file Sexual Orientation Not on file Last Filed Vital Signs Vital Sign Reading Time Taken Comments Blood Pressure 128/85 01/21/2024 4:12 PM CDT Pulse 81 01/21/2024 4:12 PM CDT Temperature 37.1 C (98.8 F) 01/21/2024 4:12 PM CDT Respiratory Rate 18 07/17/2023 8:40 AM BEET FLUMER Oxygen Saturation 98% 01/21/2024 4:12 PM CDT Inhaled Oxygen Concentration - - Weight 93.9 kg (207 lb) 01/21/2024 4:12 PM CDT Height 168.9 cm (5' 6.5) 01/21/2024 4:12 PM CDT Body Mass Index 32.91 01/21/2024 4:12 PM CDT Plan of Treatment Health Maintenance Due Date Last Done Comments ANNUAL REVIEW OF HM ORDERS 1986 YEARLY PREVENTIVE VISIT 1986 HIV SCREENING 2001 HEPATITIS C SCREENING 2004 COVID-19 Vaccine ( season) 2024 01/11/2021, 12/21/2020 INFLUENZA VACCINE (#1) 2024 09/01/2015 BMP 12/30/2024 12/31/2023, 06/21, 10/17/2022, Additional history exists DTAP/TDAP/TD IMMUNIZATION (8 - Td or Tdap) 09/01/2025 09/01/2015, 05/18/1999, 05/18/1999, Additional history exists GLUCOSE 12/30/2026 12/31/2023, 06/21, 10/17/2022, Additional history exists ADVANCE CARE PLANNING 12/30/2028 12/31/2023, 023 RSV VACCINE (1 - 1-dose 75+ series) 2061 HEPATITIS B IMMUNIZATION Completed 007, 08/18/2005, 09/10/2002 PHQ-2 (once per calendar year) Completed 01/21/2024, 12/31/2023, 11/07/2022, Additional history exists HPV IMMUNIZATION Aged Out No longer e ligible based on patient's age to complete this topic MENINGITIS IMMUNIZATION Aged Out No l onger eligible based on patient's age to complete this topic Pneumococcal Vaccine: Pediatrics (0 to 5 Years) and At-Risk Patients (6 to 64 Years) Aged Out No longer eligible based on patient's age to complete this topic RSV MONOCLONAL ANTIBODY Aged Out No l onger eligible based on patient's age to complete this topic Procedures Procedure Name Priority Date/Time Associated Diagnosis Comments COMPREHENSIVE METABOLIC PANEL Routine 12/31/2023 8:53 AM CDT Pre-op exam from Last 3 Months or Most Recently Relevant to Health Maintenance Results * (ABNORMAL) Comprehensive metabolic panel (12/31/2023 8:53 AM CDT) [facility] Sodium 139 135 - 145 mmol/L 01/01/2024 [...] 12/31/2023 8:53 AM CDT us Isabel Valderrama BUSINESS INFORMATION CONSULTANT LAB - BLOOD ORDERABLES Final Result [facility] [place] [facility] [address] [facility], [address] [place] [id number] from Last 3 Months or Most Recently Relevant to Health Maintenance Insurance [facility] CHOICE CHOICE CHOICE SENTRY CLAIMS ritual circumciser [facility] CLAIMS MANAGEMENT ESIS [employer] CLAIMS MANAGEMENT Care Teams Community Health Advisor Relationship Specialty Start Date End Date Isabel Valderrama NP [address] [place] [address] PCP - General Family Medicine 08/11/21 Amy Sierra MD [address] [place] [address] [id number] Neurology 01/26/22 Isabel Valderrama NP [address] [place] [address] Assigned PCP 11/18/22
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
--- OUTSIDE RECORDS SUMMARY | 2024-07-23 00:57 | XMS_ITS | Encounter Summary ---
Author Organization [facility] Address [address] [place] [address] Care Team Providers Care In Home Tutor Name Role Phone [facility] Primary Care Provid er Isabel Valderrama NP Primary Care Provider [phone] Isabel Valderrama NP Unavailable [phone] Isabel Valderrama NP Unavailable [phone] Gene Burroughs MD Unavailable Gene Burroughs MD Unavailable Amy Sierra MD Unavailable [phone] Isabel Valderrama NP Unavailable [phone] Encounter Details Date Type Department Care Team (Late st Contact Info) Description 05/28/2021 Documentation Only INTERFACED REPORT Unknown, Provider Social History Tobacco Use Types Packs/Day Years Used Date Smoking Tobacco: Never Smokeless Tobacco: Never Alcohol Use Standard Drinks/Week Comments No 0 (1 standard drink = 0.6 oz pur e alcohol) Sex and Gender Information Value Date Recorded Sex Assigned at Not on file 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 No / Unsure 05/27/2021 6:57 PM CDT documented as of this encounter Plan of Treatment Not on file documented as of this encounter Visit Diagnoses Not on filedocumented in this encounter Care Teams In Home Tutor Relationship Specialty Start Date End Date Clinic, [facility] [address] [place] [address] PCP - General 05/14/14 08/10/21 Isabel Valderrama, SEWING MACHINE OPERATOR [address] [place] [address] PCP - General Family Medicine 08/11/21 Isabel Valderrama, SEWING MACHINE OPERATOR [address] [place] [address] Assigned PCP 08/14/21 09/10/21 Isabel Valderrama, SEWING MACHINE OPERATOR [address] [place] [address] Assigned PCP 09/18/21 09/24/21 Gene Burroughs MD [address] [place] [address] Assigned PCP 09/11/21 09/17/21 Gene Burroughs MD [address] [place] [address] Assigned PCP 09/25/21 11/17/22 Amy Sierra MD [address] [place] [address] Neurology 01/26/22 Isabel Valderrama, SEWING MACHINE OPERATOR [address] [place] [address] Assigned PCP 11/18/22 documented as of this encounter
--- OUTSIDE RECORDS SUMMARY | 2024-07-23 00:57 | XMS_ITS | Encounter Summary ---
Author Organization [facility] Address [address] [place] [address] Care Team Providers Care Cargo Supervisor Name Role Phone Isabel Valderrama NP Primary Care Provider [phone] Amy Sierra MD Unavailable [phone] Isabel Valderrama NP Unavailable [phone] Reason for Visit * Reason Comments Medication Refill Encounter Details Date Type Department Care Team (Late st Contact Info) Description 05/07/2024 [facility]ill [facility] [address] [place] [address] Isabel Valderrama, INDUSTRIAL ENG [address] [address] Medication Refill Social History Tobacco Use Types Packs/Day Years [...] Answer Date Recorded Do you have housing? 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 Gender Identity Not on file Sexual Orientation Not on file documented as of this encounter Miscellaneous Notes * Telephone Encounter - Chelle Ortega RN - 05/13/2024 11:38 AM CDT topiramate (TOPAMAX) 25 MG tablet Last Written Prescription Date: 04/07/24 Last Fill Quantity: 70, # refills: 0 Last Office Visit : 01/21/24 Future Office visit: None Routing refill request to provider for review/approval because: Failed refill protocol: Not reviewed in current visit note Addis Tobin RN P Central Nursing/Red Flag Triage & Med Refill Team documented in this encounter Plan of Treatment Not on file documented as of this encounter Visit Diagnoses Diagnosis Migraine without aura and without status migrainosus, not intractable Migraine without aura, without mention of intractable migraine without mention of status migrainosus documented in this encounter Additional Health Concerns Assessment Noted Time PHQ-9 Depression Total Score: 16 021 8:34 AM MIXING MACHINE TENDER documented as of this encounter Care Teams Cargo Supervisor Relationship Specialty Start Date End Date Isabel Valderrama NP [address] [place] [address] PCP - General Family Medicine 08/11/21 Amy Sierra MD [address] [place] [address] Neurology 01/26/22 Isabel Valderrama NP [address] [place] [address] Assigned PCP 11/18/22 documented as of this encounter
--- OUTSIDE RECORDS SUMMARY | 2024-07-23 00:57 | XMS_ITS | Encounter Summary ---
Author Organization [facility] Address [address] [place] [address] Care Team Providers Care Fusing Machine Operator Name Role Phone Isabel Valderrama NP Primary Care Provider [phone] Amy Sierra MD Unavailable [phone] Isabel Valderrama NP Unavailable [phone] Encounter Details Date Type Department Care Team (Late st Contact Info) Description 03/25/2024 MyC Medical Advice [facility] [address] [place] [phone] Eugenia Miller Social History Tobacco Use Types Packs/Day Years [...] Answer Date Recorded Do you have housing? 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 Gender Identity Not on file Sexual Orientation Not on file documented as of this encounter Plan of Treatment Not on file documented as of this encounter Visit Diagnoses Not on filedocumented in this encounter Additional Health Concerns Assessment Noted Time PHQ-9 Depression Total Score: 16 021 8:34 AM SMART ENERGY SPECIALIST documented as of this encounter Care Teams Fusing Machine Operator Relationship Specialty Start Date End Date Isabel Valderrama NP [address] [place] [address] PCP - General Family Medicine 08/11/21 Amy Sierra MD [address] [place] [address] Neurology 01/26/22 Isabel Valderrama NP [address] [place] [address] Assigned PCP 11/18/22 documented as of this encounter
--- OUTSIDE RECORDS SUMMARY | 2024-07-23 00:57 | XMS_ITS | Encounter Summary ---
Author Organization [facility] Address [address] [place] [address] Care Team Providers Care Solar Panel Installation Supervisor Name Role Phone Isabel Valderrama NP Primary Care Provider [phone] Amy Sierra MD Unavailable [phone] Isabel Valderrama NP Unavailable [phone] Reason for Visit * Reason Onset Date Comments Refill Request 04/01/2024 minoxidil (LONIT EN) 2.5 MG tablet 60 tablet 2 01/21/2024 Encounter Details Date Type Department Care Team (Late st Contact Info) Description 04/01/2024 MyC Refill [facility] [address] [place] [phone] Isabel Valderrama, FARM CREW LEADER [address] [phone] Refill Request (minoxidil (LONITEN) 2.5 MG... 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 Gender Identity Not on file Sexual Orientation Not on file documented as of this encounter Miscellaneous Notes * Telephone Encounter - Leydi Major RN - 04/04/2024 9:43 AM CDT minoxidil (LONITEN) 2.5 MG tablet 60 tablet 2 01/21/2024 Message sent to patient in MyChart-refills should be available Leydi Major RN [facility] Central Nursing/Red Flag Triage & Med Refill Team documented in this encounter Plan of Treatment Not on file documented as of this encounter Visit Diagnoses Diagnosis Hair loss Alopecia, unspecified documented in this encounter Additional Health Concerns Assessment Noted Time PHQ-9 Depression Total Score: 16 021 8:34 AM GASOLINE POWER SHOVEL OPERATOR documented as of this encounter Care Teams Solar Panel Installation Supervisor Relationship Specialty Start Date End Date Isabel Valderrama NP [address] [place] [address] PCP - General Family Medicine 08/11/21 Amy Sierra MD [address] [place] [address] Neurology 01/26/22 Isabel Valderrmaa NP [address] [place] [address] Assigned PCP 11/18/22 documented as of this encounter
--- OUTSIDE RECORDS SUMMARY | 2024-07-23 00:57 | XMS_ITS | Encounter Summary ---
Author Organization [place] Address [facility] [place] [address] Care Team Providers Care Coyote Hunter Name Role Phone Isabel Valderrama NP Primary Care Provider [phone] Isabel Valderrama NP Unavailable [phone] Isabel Valderrama NP Unavailable [phone] Gene Burroughs MD Unavailable Gene Burroughs MD Unavailable Amy Sierra MD Unavailable [phone] Isabel Valderrama NP Unavailable [phone] Encounter Details Date Type Department Care Team (Late st Contact Info) Description 08/24/[address] [phone] Gene Burroughs MD [address] [place] [address] Social History Tobacco Use Types Packs/Day Years Used Date Smoking Tobacco: Never Smokeless Tobacco: Never Alcohol Use Standard Drinks/Week Comments No 0 (1 standard drink = 0.6 oz pur e alcohol) PHQ-2 Answer Date Recorded PHQ-2 Score 6 08/03/2021 Sex and Gender Information Value Date Recorded Sex Assigned at Not on file Legal Sex Male 4:45 AM SAFETY LEADER Gender Identity Not on file Sexual Orientation Not on file COVID-19 Exposure Response Date Recorded In the last month, have you been in contact with someone who was confirmed or suspected to have Coronavirus / COVID-19? No / Unsure 08/16/2021 1:19 PM SAFETY LEADER documented as of this encounter Miscellaneous Notes * Telephone Encounter - Sunita Taylor - 08/24/2021 4:39 PM CST TY LEADER documented in this encounter Plan of Treatment Not on file documented as of this encounter Visit Diagnoses Not on filedocumented in this encounter Additional Health Concerns Assessment Noted Time PHQ-9 Depression Total Score: 16 021 8:34 AM SAFETY LEADER documented as of this encounter Care Teams Coyote Hunter Relationship Specialty Start Date End Date Isabel Valderrama REEL BLADE BENDER FURNACE TENDER [address] [place] [address] PCP - General Family Medicine 08/11/21 Isabel Valderrama REEL BLADE BENDER FURNACE TENDER [address] [place] [address] Assigned PCP 08/14/21 09/10/21 Isabel Valderrama REEL BLADE BENDER FURNACE TENDER [address] [place] [address] Assigned PCP 09/18/21 09/24/21 Gene Burroughs MD [address] [place] [address] Assigned PCP 09/11/21 09/17/21 Gene Burroughs MD [facility] [place] [address] Assigned PCP 09/25/21 11/17/22 Amy Sierra MD [address] [place] [address] Neurology 01/26/22 Isabel Valderrama NP [address] [address] Assigned PCP 11/18/22 documented as of this encounter
[2024-07-23 00:59] VITALS: BP 128/74; PULSE 80; RESP 20; TEMP 36.8; O2SAT 99
[2024-07-23 01:01] VITALS: BP 128/74; PULSE 80; RESP 20; TEMP 36.8
[2024-07-23 01:40] LABS: Chlamydia DNA Amplified* NOT DETECTED (No Detected); GC DNA Amplified* NOT DETECTED (No Detected)
== END 2024-07-23 01:01 | disposition home or self-care (01) ==
PROVIDERS: Emergency Provider Family Medicine
DX: N48.89 Other specified disorders of penis (principal)
CPT/HCPCS: 51798; 81001; 87086; 87491; 87591; 99282; 99283

== ENCOUNTER 2025-02-02 23:36 | Emergency (ER) | payer OTHER, SELFPAY ==
--- OUTSIDE RECORDS SUMMARY | 2024-07-24 09:45 | XMS_ITS ---
Author Organization [facility] Address [address] [place] [address] [address] [place] [address] Care Team Providers Care Writing Center Director Name Role Phone Sammy Cunningham Primary Care Provider Marysol III DC, Stanely Unavailable Unavaila ble Ever Patricia [phone] REASON FOR VISIT INJECTION ONLY Bilateral Thoracic TPIs Encounters Encounter Location Date Provider Diagnosis [facility] [address] [facility] [address] [place] [address] 07/24/2024 Ever Patricia Plan Of Treatment No Information Progress Notes * Basil GODFREYOB: 7 (39 yo M)Acc No.[id number]:07/24/2024 Patient: Cheng HUERTA Provider: Marcia Patricia PA-C :1985 A ge:38 Y S ex:Male Date:07/24/2024 Phone: Address:[address] [place] [phone] Pcp:Sammy Cunningham * Billing Information: * Visit Code: * Procedure Codes: Trigger Point 2 or less. Trigger Point, 3 or more. A4209 5 cc - 19 cc gauge syringe. A4215 [place] only Sterile any size each. J0665 Inj, bupivacaine, nos, 0.5mg. J1010 Inj, methylpred acetate 1 mg. * Electronic signature of Yannick Patricia PA-C on 02/03/2025 at 12:37 AM CDT Sign off status: Pending * Provider: Marcia Patricia PA-C Date: 1 09/24/2023 Generated for Dariusi ng/Faxing/eTransmitting on: 0 02/03/2025 12:37 AM CDT
--- OUTSIDE RECORDS SUMMARY | 2024-08-05 08:30 | XMS_ITS ---
Author Organization [facility] Address [address] [place] [address] [address] [place] [address] Care Team Providers Care Tarp Repairer Name Role Phone Sammy Cunningham Primary Care Provider [phone] Marysol III DC, Stanely Unavailable Unavaila Faith Spencer Unavailable Unavailable REASON FOR VISIT 2023.12.16 PT didn't want to reschd'l will cb when he's more aware of his schedule. MLV Encounters Encounter Location Date Provider Diagnosis [facility] [address] [facility] [address] [facility] [address] [place] [address] 08/05/2024 Faith Iglesias Plan Of Treatment No Information Progress Notes * Basil GODFREYOB: 7 (39 yo M)Acc No.[id number]:08/05/2024 OT Evaluation Patient: Cheng HUERTA Provider: Martin Iglesias OTDR/Gabby :1985 A ge:38 Y S ex:Male Date:08/05/2024 Phone: Address:[address], [phone] Pcp:Sammy Cunningham Subjective: * Chief Complaints: Objective: Therapeutic Interventions: Assessment: Plan: * Treatment: * Billing Information: * Visit Code: * Procedure Codes: * Electronic signature of Sheryl Iglesias OTDR/Gabby on 02/03/2025 at 12:37 AM CDT Sign off status: Pending * Provider: Martin Iglesias OTDR/Gabby Date: 1 10/06/2023 Generated for Printi ng/Faxing/eTransmitting on: 0 02/03/2025 12:37 AM CDT
--- OUTSIDE RECORDS SUMMARY | 2024-08-26 10:00 | XMS_ITS ---
Author Organization [facility] Address [address] [place] [address] [address] [place] [address] Care Team Providers Care Relay Shop Supervisor Name Role Phone Sammy Cunningham Primary Care Provider Marysol III DC, Stanely Unavailable Unavaila ble Sukhdev Coughlin Unavailable [phone] REASON FOR VISIT INJECTION ONLY Bilateral Thoracic TPIs Encounters Encounter Location Date Provider Diagnosis [address] [facility] [address] [facility] [address] [place] [address] 08/26/2024 Sukhdev Coughlin Plan Of Treatment No Information Progress Notes * Basil GODFREYOB: 7 (39 yo M)Acc No.[id number]:08/26/2024 Patient: Cheng HUERTA Provider: Anette Coughlin PA-C :1985 A ge:38 Y S ex:Male Date:08/26/2024 Phone: Address:[address] [place], [place] [phone] Pcp:Sammy Cunningham * Billing Information: * Visit Code: * Procedure Codes: Trigger Point 2 or less. Trigger Point, 3 or more. A4209 5 cc - 19 cc gauge syringe. A4215 [place] only Sterile any size each. J0665 Inj, bupivacaine, nos, 0.5mg. J1010 Inj, methylpred acetate 1 mg. * Electronic signature of Shay Coughlin PA-C on 02/03/2025 at 12:36 AM CDT Sign off status: Pending * Provider: Anette Coughlin PA-C Date: 0 08/26/2024 Generated for Printi ng/Faxing/eTransmitting on: 0 02/03/2025 12:36 AM CDT
--- OUTSIDE RECORDS SUMMARY | 2024-12-24 11:40 | XMS_ITS | Encounter Summary ---
Author Organization [facility] Address [address], [place] [address] Care Team Providers Care Automatic Drilling Machine Operator Name Role Phone No Primary/Referring, Phy Primary Care Provider Unavailable Reason for Referral * Procedure/Equipment (Routine) - Incomplete Specialty Diagnoses / Procedures Referred By Contac t Referred To Contact Diagnoses Patellofemoral arthritis of right knee Procedures MR Knee Rt WO IV Cont Vini Yip MD [address] [facility] [place] [address] Phone: tel: fax: Referral ID Status Reason Start Date Expiration Date V isits Requested Visits Authorized [id number] Incomplete 12/24/2024 03/25/2026 1 1 * Procedure/Equipment (Routine) - Incomplete Specialty Diagnoses / Procedures Referred By Contac t Referred To Contact Diagnoses Patellofemoral arthritis of right knee Procedures XR Knee Rt 2 Views Vini Yip MD [address] [facility] [place] [address] Phone: tel: fax: Referral ID Status Reason Start Date Expiration Date V isits Requested Visits Authorized [id number] Incomplete 12/24/2024 03/25/2026 1 1 Reason for Visit * Reason Comments Follow-up Encounter Details Date Type Department Care Team ([facility] st Contact Info) Description 12/24/2024 11:[address] [facility] Orthopedic [facility] [address] [place] [address] Vini Yip MD [address] [facility] [place] [address] Patellofemoral arthritis of right knee (Primary Dx) [...] at Not on file Legal Sex Male 6:05 AM CDT Gender Identity Not on file Sexual Orientation Not on file documented as of this encounter Patient Instructions * Patient Instructions* Flora Soriano, ATC - 12/24/2024 11:40 AM CDT Thank you for Choosing [facility] for your health care visit today. Vini Yip MD Orthopaedic Sports Program Development SpecialistBowling Alley Refinisher, [facility] Medication Requests: Prescriptions are not filled on weekends or on weekdays after 3:00 PM. For all medication refills: Request a refill using MyChart or contact your pharmacy. What is Know Your Cost? Know Your Cost is a service for patients and patient/members to call and receive personalized cost information and estimates across our care group. The phone number is (COST) Sunday - Sunday 8 AM to 5 PM Advanced Imaging Scheduling: To schedule an MRI, Ultrasound, or Image guided injection at [facility] please call [phone]. To schedule an MRI or CT at a [facility] location please call [phone]. [facility] Workers' Compensation [address] [place] [address] (Phone) Email: [email or web address] Release of Information: Radiology/Imaging [address] [place] [address] (Phone) Health Information Management [address] [place] [address] (Phone) Nicholas Haddox Records documented in this encounter Progress Notes * Vini Yip MD - 12/24/2024 11:[address] [facility] Orthopaedic [place] Follow up Subjective: Cheng Godfrey is a 38 y.o. male who returns for evaluation of right knee pain. He notes that sincehis last visit he did do physical therapy. He felt that the physical therapy was helpful. He notes that the pain did not resolve entirely. Unfortunately, the pain has returned more severely recently.He describes the pain as primarily in the anteromedial aspect of the knee. There are no mechanical symptoms. This is associated more with activity, but it sounds like there can be some discomfort at rest. He has noticed some swelling in the past. He has had injections in the past, which have been helpful, but the pain has eventually returned. Physical Exam: Gen: A&OX3 The patient was reluctant to get up onto the exam table for another exam since he had, had an exam by the Fellow. The patient's exam was completed seated in the chair. Knee RIGHT LEFT Skin: Intact Intact ROM: 0-130 0-130 Effusion: Neg Neg Medial joint line tenderness: POS Neg Lateral joint line tenderness: Neg Neg Geovany: Equivocal Neg Patella crepitus: Neg Neg Patella tenderness: POS Neg Elizabeth: Neg Neg Pivot shift: Neg Neg Valgus stress: Neg Neg Varus stress: Neg Neg Posterior drawer: Neg Neg N-V intact intact Hip: nml nml Lower extremity edema: Neg Neg Right knee: There was TTP generally about the patella, including distal quad, proximal patellar tendon, with direct compression of the patella, and medial and lateral translation of the patella. There was no TTP over both condyles, or both medial and lateral plateaus. Imaging: Radiographs of the right knee - 3 views; left comparison: Radiograph of the bilateral knees: Bilateral 45-degree PA weightbearing, and Merchant views as wellas a lateral of the right knee with no acute fractures or dislocations. There remains a question ofsome very early degenerative changes in the patellofemoral compartment bilaterally. No obvious trochlear dysplasia or extensor mechanism malalignment. There does appear to be a question of patella tai. I ordered and independently reviewed and interpreted the imaging studies above; the results were discussed with the patient. CT scan of the right knee (09/14/2023): IMPRESSION: 1. Moderate chondromalacia noted in the patellofemoral compartment. 2. No fracture or suspicious osseous lesions. MRI (outside) of the right knee (12/11/2021): Impression: 1. Cartilage irregularity, heterogeneity, delamination, and full thickness cartilage fissuring withadjacent subchondral edema-like and cystlike changes, modified Outerbridge grade IV chondromalacia,similar to the prior MRI. 2. Hoffa's fat pad edema as can be seen in the setting of patellar maltracking. 3. Decreased edematous signal deep to the IT band, compared to prior. 4. The anterior and posterior cruciate ligaments, medial and lateral supporting structures, and bilateral menisci are intact. I independently reviewed and interpreted the imaging studies above; the results were discussed withthe patient. Assessment: Right knee pain Plan: The risks and benefits of the available surgical and non-surgical treatment options were again discussed with the patient. His exam and symptomatology are a little more localized this time, but still do not necessarily localize to 1 source. His exam is potentially concerning for meniscal pathology, therefore we will get a new MRI to evaluate for meniscus pathology. We will also evaluate his previously known chondral pathology. Follow up after MRI. documented in this encounter Plan of Treatment Scheduled Orders Name Type Priority Associated Diagnoses Orde r Schedule MR Knee Rt WO IV Cont Imaging New Routine Patellofemoral arthritis of right knee Expected: 12/24/2024 (Approximate), Expires: 12/24/2025 documented as of this encounter Results * XR Knee Rt 2 Views (12/24/2024 11:47 AM CDT) Anatomical Region Laterality Modality Lower Extremity, Knee Digital Ra diography Narrative 12/31/2024 4:35 PM CDT Radiographs of the right knee - 3 views; left comparison: Radiograph of the bilateral knees: Bilateral 45-degree PA weightbearing, and Merchant views as well as a lateral of the right knee with no acute fractures or dislocations. There remains a question of some very early degenerative changes in the patellofemoral compartment bilaterally. No obvious trochlear dysplasia or extensor mechanism malalignment. There does appear to be a question of patella tai. us Vini Yip MD RAD GD Final Result documented in this encounter Visit Diagnoses Diagnosis Patellofemoral arthritis of right knee- Primary Patellofemoral arthritis of right knee documented in this encounter Care Teams Automatic Drilling Machine Operator Relationship Specialty Start Date End Date No Primary/Referring, Phy PCP - General 05/15/14 documented as of this encounter
--- OUTSIDE RECORDS SUMMARY | 2024-12-24 11:45 | XMS_ITS | Encounter Summary ---
[facility] Address [address], [place] [address] Care Team Providers Care Stunt Woman Name Role Phone No Primary/Referring, Phy Primary Care Provider Unavailable Reason for Visit * Procedure/Equipment (Routine) - Incomplete Specialty Diagnoses / Procedures Referred By Contac t Referred To Contact Diagnoses Patellofemoral arthritis of right knee Procedures XR Knee Rt 2 Views Vini Yip MD [address] [place] [address] [place] [address] Phone: tel: fax: Referral ID Status Reason Start Date Expiration Date V isits Requested Visits Authorized [id number] Incomplete 12/24/2024 03/25/2026 1 1 Encounter Details Date Type Department Care Team (Late st Contact Info) Description 12/24/2024 11:45 AM CDT Ancillary Procedure [facility] [address] [place], [place] [id number] Vini Yip MD [address] [place] [address] [address] [place] [place] [id number] Patellofemoral arthritis of right knee Social History Tobacco Use [...] on file documented as of this encounter Procedures Procedure Name Priority Date/Time Associated Diagnosis Comments XR KNEE RT 2 VIEWS Routine 12/24/2024 11 :47 AM CDT Patellofemoral arthritis of right knee documented in this encounter Results * XR Knee Rt [...] Visit Diagnoses Diagnosis Patellofemoral arthritis of right knee documented in this encounter Care Teams Stunt Woman Relationship Specialty Start Date End Date No Primary/Referring, Phy PCP - General 05/15/14 documented as of this encounter
--- OUTSIDE RECORDS SUMMARY | 2025-01-07 17:00 | XMS_ITS | Encounter Summary ---
Author Organization [place] Address [address] [facility] [place] [address] Care Team Providers Care Tuna Purse Seiner Name Role Phone Isabel Valderrama NP Primary Care Provider [phone] Amy Sierra MD Unavailable [phone] Isabel Valderrama NP Unavailable [phone] Reason for Visit * Reason Comments Pre-Op Exam Encounter Details Date Type Department Care Team (Late st Contact Info) Description 01/07/2025 5:00 PM CDT Office Visit [facility] [address] [place] [id number] Chance Gill MD [address] [place], [place] [id number] Preop general physical exam (Primary Dx); Foreskin problem; Balanitis Social History Tobacco Use Types Packs/Day Years Used Date Smoking Tobacco: Never Passive Smoke Exposure: Never Smokeless Tobacco: Never Alcohol Use Standard Drinks/Week Comments No 0 (1 standard drink = 0.6 oz pur e alcohol) PHQ-2 Answer Date Recorded PHQ-2 Score 0 01/07/2025 Adolescent Education Answer Date Record ed Getting [...] permanent housing and does not include staying outside in a car, in a tent, in an abandoned building, in an overnight senior living, or couch-surfing.) Yes 12/31/2023 Are you worried [...] motionally safe where you currently live? Yes 07/30/2024 Within the past 12 months, h ave you been hit, slapped, kicked or otherwise physically hurt by someone? No 07/30/2024 Within the past 12 months, h ave you been humiliated or emotionally abused in other ways by your partner or ex-partner? 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 Gender Identity Not on file Sexual Orientation Not on file documented as of this encounter Last Filed Vital Signs Vital Sign Reading Time Taken Comments Blood Pressure 127/84 01/07/2025 4:49 PM CDT Pulse 86 01/07/2025 4:49 PM CDT Temperature 36.6 C (97.9 F) 01/07/2025 4:49 PM CDT Respiratory Rate 20 01/07/2025 4:49 PM CDT Oxygen Saturation 98% 01/07/2025 4:49 PM CDT Inhaled Oxygen Concentration - - Weight 89.4 kg (197 lb 3.2 oz) 01/07/2025 4:49 P M CDT Height 168.9 cm (5' 6.5) 01/07/2025 4:49 PM CDT Body Mass Index 31.35 01/07/2025 4:49 PM CDT documented in this encounter Patient Instructions * Patient Instructions* Deal, Chance D, MD - 01/07/2025 5:00 PM CDT Hold ibuprofen for one week prior to procedure Hold Wegovy for two weeks prior Use clotrimazole cream over the counter to affected area We will send you lab results Follow directions from surgery center about not eating/ drinking prior documented in this encounter Progress Notes * Chance Gill MD - 01/07/2025 5:00 PM CDT Preoperative Evaluation [facility] [address] [facility] [phone] Primary Provider: Isabel Valderrama NP Pre-op Performing Provider: Chance Gill MD January 07, 2025 01/07/2025 Surgical Information What procedure is being done? Circumcision Facility or Hospital where procedure/surgery will be performed: [facility] Who is doing the procedure / surgery? Marcello Salcedo Date of surgery / procedure: January Time of surgery / procedure: 730am Where do you plan to recover after surgery? at home with family Fax number for surgical facility: [phone] Assessment & Plan The proposed surgical procedure is considered LOW risk. (Z01.818) Preop general physical exam (primary encounter diagnosis) Comment: patient should be okay for procedure. Labs pending. Plan: CBC with Platelets & Differential, Basic metabolic panel (N47.8) Foreskin problem Comment: to have circumcision Plan: as above Patient to hold ibuprofen for one week prior Hold wegovy for two weeks prior - No identified additional risk factors other than previously addressed Recommendation Approval given to proceed with proposed procedure, without further diagnostic evaluation. Cornelia Anand is a 39 year old, presenting for the following: Pre-Op Exam 01/07/2025 4:46 PM Additional Questions Roomed by solis ferris HPI: 39 year old male to have circumcision January 20. 01/07/2025 Pre-Op Questionnaire Have you ever had a heart attack or stroke? No Have you ever had surgery on your heart or blood vessels, such as a stent placement, a coronary artery bypass, or surgery on an artery in your head, neck, heart, or legs? No Do you have chest pain with activity? No Do you have a history of heart failure? No Do you currently have a cold, bronchitis or symptoms of other infection? No Do you have a cough, shortness of breath, or wheezing? No Do you or anyone in your family have previous history of blood clots? No Do you or does anyone in your family have a serious bleeding problem such as prolonged bleeding following surgeries or cuts? No Have you ever had problems with anemia or been told to take iron pills? No Have you had any abnormal blood loss such as black, tarry or bloody stools? No Have you ever had a blood transfusion? No Are you willing to have a blood transfusion if it is medically needed before, during, or after yoursurgery? Yes Have you or any of your relatives ever had problems with anesthesia? No Do you have sleep apnea, excessive snoring or daytime drowsiness? No Do you have any artifical heart valves or other implanted medical devices like a pacemaker, defibrillator, or continuous glucose monitor? No Do you have artificial joints? No Are you allergic to latex? (!) YES Advance Care Planning Document on file is a Health Care Directive or POLST. 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 Patient not on any controlled substance Patient Active Problem List Diagnosis Date Noted Morbid obesity (H) 12/07/2022 Priority: Medium Pain in joint involving ankle and foot 05/15/2014 Priority: Medium Past Medical History: Diagnosis Date Migraine No known health problems Right knee pain Past Surgical History: Procedure Laterality Date no surgical history Correction patient has had tonsillectomy, deviated septum, and removed sesamoid bone Current Outpatient Medications Medication Sig Dispense Refill ibuprofen (ADVIL/MOTRIN) 100 MG/5ML suspension Take 30 mLs (600 mg) by mouth every 6 hours as needed for fever or moderate pain (4-6) 473 mL 1 topiramate (TOPAMAX) 25 MG tablet TAKE 1 TABLET BY MOUTH AT BEDTIME X1 WEEK, THEN 1 TABLET TWICE DAILY X1WEEK, THEN 1 IN AM AND 2 IN PM X1 WEEK, THEN 2 TABLETS TWICE DAILY. 70 tablet 0 WEGOVY 2.4 MG/0.75ML pen Inject 2.4 mg subcutaneously once a week. lisinopril (ZESTRIL) 20 MG tablet Take 1 tablet (20 mg) by mouth daily (Patient not taking: Reported on 01/07/2025) 90 tablet 1 minoxidil (LONITEN) 2.5 MG tablet Take 1 tablet (2.5 mg) by mouth daily (Patient not taking: Reported on 01/07/2025) 60 tablet 2 SUMAtriptan (IMITREX) 100 MG tablet 100mg one time. May repeat 100 mg once again, up to a maximum of 200mg in 24 hours. (Patient not taking: Reported on 01/07/2025) 20 tablet 3 Patient no longer on lisinopril or minoxidil pills Allergies Allergen Reactions Latex Other (See Comments) Social History Tobacco Use Smoking status: Never Passive exposure: Never Smokeless tobacco: Never Substance Use Topics Alcohol use: No History Drug Use No Review of Systems Constitutional, HEENT, cardiovascular, pulmonary, GI, , musculoskeletal, neuro, skin, endocrine and psych systems are negative, except as otherwise noted. No recent illnesses On wt loss meds, helping No history of anesthesia problems No cardiac problems No chest pain/ breathing problems Objective BP 127/84 (BP Location: Left arm, Patient Position: Sitting, Cuff Size: Adult Regular) Pulse 86 Temp 97.9 ??F (36.6 ??C) (Temporal) Resp 20 Ht 1.689 m (5' 6.5) Wt 89.4 kg (197 lb 3.2 oz) SpO2 98% BMI 31.35 kg/m?? Estimated body mass index is 31.35 kg/m?? as calculated from the following: Height as of this encounter: 1.689 m (5' 6.5). Weight as of this encounter: 89.4 kg (197 lb 3.2 oz). Physical Exam GENERAL: alert and no distress EYES: Eyes grossly normal to inspection, PERRL and conjunctivae and sclerae normal HENT: ear canals and TM's normal, nose and mouth without ulcers or lesions NECK: no adenopathy, no asymmetry, masses, or scars RESP: lungs clear to auscultation - no rales, rhonchi or wheezes CV: regular rate and rhythm, normal S1 S2, no S3 or S4, no murmur, click or rub, no peripheral edema ABDOMEN: soft, nontender, no hepatosplenomegaly, no masses and bowel sounds normal MS: no gross musculoskeletal defects noted, no edema SKIN: no suspicious lesions or rashes NEURO: Normal strength and tone, mentation intact and speech normal PSYCH: mentation appears normal, affect normal/bright Patient asked about a red area on head of penis. He showed this to me, a couple very tiny red dots present. Recent Labs Lab Test 07/30/24 1702 HGB 17.0 NA 140 POTASSIUM 4.2 CR 1.01 Diagnostics No EKG needed Revised Cardiac Risk Index (RCRI) The patient has the following serious cardiovascular risks for perioperative complications: - No serious cardiac risks = 0 points RCRI Interpretation: 0 points: Class I (very low risk - 0.4% complication rate) Signed Electronically by: Chance Gill MD A copy of this evaluation report is provided to the requesting physician. documented in this encounter Nursing Notes * Michelle Castellon CMA - 01/07/2025 5:[address] Gill's request I faxed over per op report to number listed in pre op note. Michelle Castellon CMA documented in this encounter Plan of Treatment Not on file documented as of this encounter Procedures Procedure Name Priority Date/Time Associated Diagnosis Comments CBC WITH PLATELETS AND DIFFERENTIAL Routine 01/07/2025 5:22 PM CDT Preop general physical exam CBC WITH PLATELETS & DIFFERENTIAL Routine 01/07/2025 5:22 PM CDT Preop general physical exam BASIC METABOLIC PANEL Routine 01/07/2025 5:22 PM CDT Preop general physical exam documented in this encounter Results * (ABNORMAL) CBC with platelets and differential (01/07/2025 5:22 PM CDT) WBC Count 7.3 4.0 - 11.0 10e3/uL 01/07/2025 5:41 PM CDT [facility] RBC Count 5.99(H) 4.40 - 5.90 10e6/uL 01/07/2025 5:41 PM CDT [facility] Hemoglobin 17.5 13.3 - 17.7 g/dL 01/07/2025 5:41 PM CDT [facility] Hematocrit 52.1 40.0 - 53.0 % 01/07/2025 5:41 PM CDT [facility] MCV 87 78 - 100 fL 01/07/2025 5:41 PM CDT [facility] MCH 29.2 26.5 - 33.0 pg 01/07/2025 5:41 PM CDT [facility] MCHC 33.6 31.5 - 36.5 g/dL 01/07/2025 5:41 PM CDT [facility] RDW 12.6 10.0 - 15.0 % 01/07/2025 5:41 PM CDT [facility] Platelet Count 448 150 - 450 10e3/uL 01/07/2025 5:41 PM CDT [facility] % Neutrophils 57 % 01/07/2025 5:41 PM CDT [facility] % Lymphocytes 34 % 01/07/2025 5:41 PM CDT [facility] % Monocytes 7 % 01/07/2025 5:41 PM CDT [facility] % Eosinophils 1 % 01/07/2025 5:41 PM CDT [facility] % Basophils 1 % 01/07/2025 5:41 PM CDT [facility] % Immature Granulocytes 0 % 01/07/2025 5:41 PM CDT [facility] Absolute Neutrophils 4.2 1.6 - 8.3 10e3/uL 01/07/2025 5:41 PM CDT [facility] Absolute Lymphocytes 2.4 0.8 - 5.3 10e3/uL 01/07/2025 5:41 PM CDT [facility] Absolute Monocytes 0.5 0.0 - 1.3 10e3/uL 01/07/2025 5:41 PM CDT [facility] Absolute Eosinophils 0.1 0.0 - 0.7 10e3/uL 01/07/2025 5:41 PM CDT [facility] Absolute Basophils 0.1 0.0 - 0.2 10e3/uL 01/07/2025 5:41 PM CDT [facility] Absolute Immature Granulocytes 0.0 <=0.4 10e3/uL 01/07/2025 5:41 PM CDT [facility] Blood BLOOD SPECIMEN / Unknown Venipuncture / Unknown 01/07/2025 5:22 PM CDT 01/07/2025 5:25 PM CDT us Chance Gill MD LAB - BLOOD ORDERABLES Final Result [facility] [place] [address] [facility] - [address] [place] [address], [facility] * (ABNORMAL) Basic metabolic panel (01/07/2025 5:22 PM CDT) Sodium 138 135 - 145 mmol/L 01/08/2025 10:22 PM CDT [facility] Potassium 3.7 3.4 - 5.3 mmol/L 01/08/2025 10:22 PM CDT [facility] Chloride 107 98 - 107 mmol/L 01/08/2025 10:22 PM CDT [facility] Carbon Dioxide (CO2) 19(L) 22 - 29 mmol/L 01/08/2025 10:22 PM CDT [facility] Anion Gap 12 7 - 15 mmol/L 01/08/2025 10:22 PM CDT [facility] Urea Nitrogen 14.3 6.0 - 20.0 mg/dL 01/08/2025 10:22 PM CDT [facility] Creatinine 0.75 0.67 - 1.17 mg/dL 01/08/2025 10:22 PM CDT [facility] GFR Estimate >90 >60 mL/min/1.7 3m2 01/08/2025 10:22 PM CDT [facility] Comment:eGFR calculated us2020 CKD-EPI equation. Calcium 8.9 8.8 - 10.4 mg/dL 01/08/2025 10:22 PM CDT [facility] Glucose 96 70 - 99 mg/dL 01/08/2025 10:22 PM CDT [facility] Blood BLOOD SPECIMEN / Unknown Venipuncture / Unknown 01/07/2025 5:22 PM CDT 01/07/2025 5:25 PM CDT us Chance Gill MD LAB - BLOOD ORDERABLES Final Result [facility] [address] [facility], [address] [phone] documented in this encounter Visit Diagnoses Diagnosis Preop general physical exam- Primary Other specified pre-operative examination Foreskin problem Other specified disorder of penis Balanitis Balanoposthitis documented in this encounter Additional Health Concerns Assessment Noted Time PHQ-9 Depression Total Score: 16 021 8:34 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
--- OUTSIDE RECORDS SUMMARY | 2025-01-14 17:00 | XMS_ITS | Encounter Summary ---
Author Organization [place] Address [address] [facility] [place] [address] Care Team Providers Care Executive Assistant To President Name Role Phone Isabel Valderrama NP Primary Care Provider [phone] Amy Sierra MD Unavailable [phone] Isabel Valderrama NP Unavailable [phone] Reason for Visit * Reason Comments Annual Visit Encounter Details Date Type Department Care Team (Late st Contact Info) Description 01/14/2025 5:00 PM CDT Office Visit [address] [phone] Alvin Caldwell, VINAYAK [facility] [address] [place] [address] Routine general medical examination at a health care facility (Primary Dx); Screen for STD (sexually transmitted disease); Elevated LDL cholesterol level Social History Tobacco Use Types Packs/Day Years Used Date Smoking Tobacco: Never Passive Smoke Exposure: Never Smokeless Tobacco: Never Alcohol Use Standard Drinks/Week Comments No 0 (1 standard drink = 0.6 oz pur e alcohol) Social Connection and Isolat ion Panel [NHANES] Answer Date Recorded Frequency of Communication w ith Friends and Family Not on file 01/14/2025 How often do you get togethe r with friends or relatives? More than three times a week 01/14/2025 Attends Muslim Services Not on file 01/14 Active Member of Clubs or Organizations Not on f ile 01/14/2025 Attends Club or Organization Meetings Not on jacque e 01/14/2025 Marital Status Not on file 01/14/2025 PHQ-2 Answer Date Recorded PHQ-2 Score 0 01/14/2025 [facility] - Occupational Stress Questionnaire Answer Date Recorded Do you feel stress - tense, restless, nervous, or anxious, or unable to sleep at night because your mind is troubled all the time - these days? Not at all 01/14/2025 Exercise Vital Sign Answer Date Recorde d On average, how many days pe r week do you engage in moderate to strenuous exercise (like a brisk walk)? 7 days 01/14/2025 On average, how many minutes do you engage in exercise at this level? 60 min 01/14/2025 Adolescent Education Answer Date Record ed Getting School Help Needed Not on file 05/31 Food Insecurity Answer Date Recorded Within the past 12 months, d id you worry that your food would run out before you got money to buy more? No 01/14/2025 Within the past 12 months, d id the food you bought just not last and you didn t have money to get more? No 01/14/2025 Housing Stability Answer Date Recorded Do you have housing? (Serjioin g is defined as stable permanent housing and does not include staying outside in a car, in a tent, in an abandoned building, in an overnight half-way, or couch-surfing.) No 01/14/2025 Are you worried about losing your housing? No 01/14/2025 Financial Resource Strain Answer Date R ecorded Within the past 12 months, h ave you or your family members you live with been unable to get utilities (heat, electricity) when it was really needed? No 01/14/2025 Transportation Needs Answer Date Record ed Within the past 12 months, h as lack of transportation kept you from medical appointments, getting your medicines, non-medical meetings or appointments, work, or from getting things that you need? No 01/14/2025 Interpersonal Safety Answer Date Record ed Do you feel physically and e motionally safe where you currently live? Patient declined 01/14/2025 Within the past 12 months, h ave you been hit, slapped, kicked or otherwise physically hurt by someone? Patient declined 2024 Within the past 12 months, h ave you been humiliated or emotionally abused in other ways by your partner or ex-partner? Patient declined 01/14/2025 Sex and Gender Information Value Date Recorded Sex Assigned at Not on file Legal Sex Male 4:45 AM K [employer] Gender Identity Not on file Sexual Orientation Not on file documented as of this encounter Last Filed Vital Signs Vital Sign Reading Time Taken Comments Blood Pressure 117/78 01/14/2025 4:41 PM CDT Pulse 79 01/14/2025 4:41 PM CDT Temperature 36.6 C (97.9 F) 01/14/2025 4:41 PM CDT Respiratory Rate 16 01/14/2025 4:41 PM CDT Oxygen Saturation 97% 01/14/2025 4:41 PM CDT Inhaled Oxygen Concentration - - Weight 92.5 kg (204 lb) 01/14/2025 4:41 PM CDT w /shoes Height 171.5 cm (5' 7.52) 01/14/2025 4:41 PM CD T Body Mass Index 31.46 01/14/2025 4:41 PM CDT documented in this encounter Patient Instructions * Patient Instructions* Alvin Caldwell, VINAYAK ROUTE PROCESS ADMINISTRATOR - 01/14/2025 5:00 PM CDT Patient Education Consejos de atenci??n preventiva Se trata de consejos generales que solemos ofrecer para ayudar a las personas a mantenerse saludables. Carranza equipo de atenci??n puede darle consejos espec??ficos. Hable con ellos sobre mookie propias necesidades de atenci??n preventiva. Estilo de ghassan Ejerc??tese, neva m??gilson, 150 minutos a la semana (30 minutos al d??a, 5 d??as a la semana). Realice actividades de fortalecimiento muscular 2 d??as a la semana, ya que contribuyen al control del peso y a la prevenci??n de enfermedades. No fume. Use protector solar para prevenir el c??ncer de piel. Cada 2 a 5 a??os, realice pruebas de detecci??n de rad??n en carranza hogar. Se trata de un gas incoloro e inodoro que puede da??ar los pulmones. Para obtener m??s informaci??n, visite [email or web address]. y busque Radon in Homes (Rad??n en los hogares). Mantenga las liliana descargadas y bajo llave en un lugar seguro, neva zeenat caja ciro o zeenat c??bryson blindada, o use un candado para liliana y esconda las llaves. Guarde siempre las balas por separado. Para obtener m??s informaci??n, visite [facility].gov y busque Safe Gun Storage (Almacenamiento seguro nathalie). Alimentaci??n Consuma 5 o m??s porciones de frutas y verduras al d??a. Pruebe el sandoval de lalit, el arroz integral y la pasta integral (en lugar de sandoval lazaro, arroz blancoy pasta). Consuma suficiente calcio y vitamina D. Revise la etiqueta de los alimentos y procure alcanzar el 100 % de la ingesta diaria recomendada (IDR). Ex??menes balbina??dicos H??gase un examen dental y zeenat limpieza cada 6 meses. Visite a carranza equipo de atenci??n m??dica todos los a??os para hablar sobre lo siguiente: Todo cambio en carranza shawna. Todo medicamento que carranza equipo de atenci??n le haya recetado. Atenci??n preventiva, planificaci??n familiar y formas de prevenir enfermedades cr??nicas. Inyecciones (vacunas) Vacunas contra el virus del papiloma humano (VPH) (hasta los 26 a??os), si nunca se las sparrow colocado. Vacunas contra la hepatitis B (hasta los 59 a??os), si nunca se las sparrow colocado. Vacuna contra la COVID-19: vac??nese cuando corresponda. Vacuna contra la gripe: vac??nese contra la gripe todos los a??os. Vacuna contra el t??tanos: vac??nese contra el t??tanos cada 10 a??os. Vacunas contra el neumococo, la hepatitis A y el virus sincicial respiratorio (VSR): pregunte a carranza equipo de atenci??n si las necesita en funci??n de carranza riesgo. Vacuna contra el herpes z??ster (para personas de 50 a??os o m??s). Pruebas m??dicas generales Examen de detecci??n de diabetes: A partir de los 35 a??os, h??gase ex??menes de detecci??n de diabetes, neva m??gilson, cada 3 a??os. Si tiene menos de 35 a??os, pregunte a carranza equipo de atenci??n si debe hacerlo. Prueba de colesterol: a los 39 a??os, comience a hacerse zeenat prueba de colesterol cada 5 a??os o con mayor frecuencia si se lo aconsejan. Exploraci??n de densidad ??sea (DEXA): a los 50 a??os, pregunte a carranza equipo de atenci??n si debe hacerse esta exploraci??n para detectar osteoporosis (fragilidad en los huesos). Hepatitis C: h??gase la prueba, neva m??gilson, zeenat vez en la ghassan. Examen de detecci??n de aneurismas a??rticos abdominales: hable con carranza m??dico sobre la posibilidadde hacerse dayna examen de detecci??n si cumple alguna de las siguientes condiciones: fum?? alguna vez; y es hombre seg??n carranza sexo biol??gico; y tiene entre 65 y 75 a??os. Infecciones de transmisi??n sexual (ITS) Antes de los 24 a??os, pregunte a carranza equipo de atenci??n si debe hacerse ex??menes de detecci??n deITS. Despu??s de los 24 a??os, h??gase ex??menes de detecci??n de ITS si est?? en riesgo. Est?? en riesgo de contraer alguna ITS (incluido el virus de la inmunodeficiencia adquirida [VIH]) en los siguientes casos: Tiene relaciones sexuales con m??s de zeenat persona. No usa preservativos siempre que tiene relaciones sexuales. A usted o a carranza selma le diagnosticaron zeenat infecci??n de transmisi??n sexual. Si est?? en riesgo de contraer el VIH, consulte sobre los medicamentos de la profilaxis de preexposici??n (Pre-Exposure Prophylaxis, PrEP) para prevenirlo. H??gase la prueba del VIH, neva m??gilson, zeenat vez en la ghassan, tanto si est?? en riesgo de contraer el virus neva si no. Pruebas de detecci??n de c??ncer Examen de detecci??n de c??ncer de walter uterino: si tiene walter uterino, comience a hacerse pruebas balbina??dicas de detecci??n de c??ncer de walter uterino a los 21 a??os. La mayor??a de las personas que se hacen ex??menes balbina??dicos de detecci??n y obtienen resultados normales pueden dejar de hacerlo a partir de los 65 a??os. Hable sobre esto con carranza proveedor. Exploraci??n de detecci??n de c??ncer de mama (mamograf??a): si alguna vez guido tenido mamas, comience a hacerse mamograf??as balbina??dicas a partir de los 40 a??os. Se trata de zeenat exploraci??n para detectar el c??ncer de mama. Examen de detecci??n de c??ncer de colon: es importante comenzar a hacerse los ex??menes de detecci??n de c??ncer de colon a los 45 a??os. H??gase zeenat colonoscop??a cada 10 a??os (o con m??s frecuencia si est?? en riesgo) O pregunte a carranza proveedor sobre pruebas de heces, neva la prueba inmunoqu??cally fecal (Fecal Immunochemical Test, FIT) cada a??o o la prueba Cologuard cada 3 a??os. Para obtener m??s informaci??n sobre las opciones de las pruebas que tiene a disposici??n, visite: www.[email or web address]. Si necesita ayuda para gualberto zeenat decisi??n, visite: [email or web address]. Prueba de detecci??n de c??ncer de pr??stata: si tiene pr??stata y est?? entre los 55 y 69 a??os, pregunte a carranza proveedor si le convendr??a hacerse zeenat prueba anual de detecci??n de c??ncer de pr??stata. Examen de detecci??n de c??ncer de pulm??n: si fuma o fum?? y tiene entre 50 y 80 a??os, pregunte asu equipo de atenci??n si los ex??menes continuos de detecci??n de c??ncer de pulm??n son adecuadospara usted. Solo para uso con fines informativos. Dayna documento no pretende sustituir ninguna recomendaci??n m??dica. Derechos de autor ?? 2022 [facility]. Todos los derechos reservados. Revisi??n cl??placido a cargo de Health kapt[employer] Transitions Program.[facility] [id number] - REV 12/11. Safer Sex: Care Instructions Overview Safer sex is a way to reduce your risk of getting a sexually transmitted infection (STI). It can also help prevent . Several products can help you practice safer sex and reduce your chance of STIs. One of the best kathy condom. There are internal and external condoms. You can use a special rubber sheet (dental dam) for protection during oral sex. Disposable gloves can keep your hands from touching blood, semen, orother body fluids that can carry infections. Remember that control methods such as diaphragms, IUDs, foams, and control pills do notstop you from getting STIs. Follow-up care is a escamilla part of your treatment and safety. Be sure to make and go to all appointments, and call your doctor if you are having problems. It's also a good idea to know your test resultsand keep a list of the medicines you take. How can you care for yourself at home? Think about getting vaccinated to help prevent hepatitis A, hepatitis B, and human papillomavirus (HPV). They can be spread through sex. Use a condom every time you have sex. Use an external condom, which goes on the penis. Or use an internal condom, which goes into the vagina or anus. Make sure you use the right size external condom. A condom that's too small can break easily. A condom that's too big can slip off during sex. Use a new condom each time you have sex. Be careful not to poke a hole in the condom when you open the wrapper. Don't use an internal condom and an external condom at the same time. Never use petroleum jelly (such as Vaseline), grease, hand lotion, baby oil, or anything with oil in it. These products can make holes in the condom. After intercourse, hold the edge of the condom as you remove it. This will help keep semen from spilling out of the condom. Do not have sex with anyone who has symptoms of an STI, such as sores on the genitals or mouth. Do not drink a lot of alcohol or use drugs before sex. Limit your sex partners. Sex with one partner who has sex only with you can reduce your risk of getting an STI. Don't share sex toys. But if you do share them, use a condom and clean the sex toys between each use. Talk to any partners before you have sex. Talk about what you feel comfortable with and whether youhave any boundaries with sex. And find out if your partner or partners may be at risk for any STI. Keep in mind that a person may be able to spread an STI even if they do not have symptoms. You and any partners may want to get tested for STIs. Where can you learn more? Go to https://www.[employer].net/patiented Enter B608 in the search box to learn more about Safer Sex: Care Instructions. Current as of: December 18, 2023 Content Version: 14.4 ?? 3420-1996 [employer]. Care instructions adapted under license by your healthcare professional. If you have questions about a medical condition or this instruction, always ask your healthcare professional. [employer] disclaims any warranty or liability for your use of this information. documented in this encounter Progress Notes * Alvin Caldwell APRN CNP - 01/14/2025 5:00 PM CDT Images from the original note were not included. Preventive Care Visit [facility] Alvin Caldwell APRN CNP, Family Medicine January 14, 2025 Assessment & Plan (Z00.00) Routine general medical examination at a health care facility (primary encounter diagnosis) Comments: History of morbid obesity with current BMI of 31.48, indicating progress in weight management. Comprehensive metabolic panel from 7 days ago was normal. Cholesterol test to be rescheduled for a fasting state. Plan: - Reschedule cholesterol test for a fasting state. - Continue current weight loss medications (wegovy). - Encouraged regular physical activity. - COVID-19 vaccine declined by patient. - Encouraged regular physical activity, aiming for 150 minutes of moderate exercise per week -Reviewed recommendations for screening, and immunizations. -Counseled patient on medication adherence -F/u 1 year for next annual physical - RTO sooner prn (Z11.3) Screen for STD (sexually transmitted disease) omments: Patient has a new sexual partner and requests STD screening. Previous STD tests including herpes, syphilis, chlamydia, and gonorrhea were negative. Patient had STD screening on December 24, 2024, but insists on another test due to a new sexual partner and unprotected sex. Plan: HIV Antigen Antibody Combo [[id number]], Treponema Abs w Reflex to RPR and Titer [[id number]], Chlamydia trachomatis PCR [[id number]], Neisseria gonorrhoeae PCR [[id number]] (E78.00) Elevated LDL cholesterol level Comment: Has a history of elevated LDL in the past Plan: Lipid panel reflex to direct LDL Fasting BMI Estimated body mass index is 31.46 kg/m?? as calculated from the following: Height as of this encounter: 1.715 m (5' 7.52). Weight as of this encounter: 92.5 kg (204 lb). Counseling Appropriate preventive services were addressed with this patient via screening, questionnaire, or discussion as appropriate for fall prevention, nutrition, physical activity, Tobacco-use cessation, social engagement, weight loss and cognition. Checklist reviewing preventive services available has been given to the patient. Reviewed patient's diet, addressing concerns and/or questions. Cornelia Anand is a 39 year old, presenting for the following: Annual Visit 01/14/2025 4:39 PM Additional Questions Roomed by Emelia Kennedy CMA 01/14/2025 4:39 PM Patient Reported Additional Medications Patient reports taking the following new medications none HPI History of Present Illness- Cheng Godfrey, 39 years, male, presents for a routine general medical examination and STD screening. He has a history of morbid obesity and is currently taking Wegovy and Topamax for weight loss. He previously weighed 207 pounds and now weighs 204 pounds, with a lowest recorded weight of 197 pounds. He engages in walking for exercise, approximately 2 hours a day. His BMI is currently 31.48. STD Screening He reports having a new sexual partner and has decided to undergo STD screening. He had a previous STD screening on December 24, 2024, which was negative for herpes, syphilis, chlamydia, and gonorrhea. At that time, he did not have a new partner. He has had unprotected sex with the new partner. He reports no painful urination or dysuria and no skin lesions. He was telephoned at some point for HIV prevention. Surgical Preparation He is scheduled for a circumcision next Sunday., CBC and CMP were conducted 7 days ago in preparation for the surgery. Comprehensive metabolic panel was normal. Migraine History He previously experienced migraine headaches but no longer has them. Advance Care Planning Discussed advance care planning with patient; however, patient declined at this time. 01/14/2025 General Health How would you rate your overall physical health? Excellent Feel stress (tense, anxious, or unable to sleep) Not at all 01/14/2025 Nutrition Three or more servings of calcium each day? Yes Diet: Regular (no restrictions) How many servings of fruit and vegetables per day? 4 or more How many sweetened beverages each day? (!) 4+ 01/14/2025 Exercise Days per week of moderate/strenous exercise 7 days Average minutes spent exercising at this level 60 min 01/14/2025 Social Factors Frequency of gathering with friends or relatives More than three times a week Worry food won't last until get money to buy more No Food not last or not have enough money for food? No Do you have housing? (Housing is defined as stable permanent housing and does not include staying outside in a car, in a tent, in an abandoned building, in an overnight half-way, or couch-surfing.) No Are you worried about losing your housing? No Lack of transportation? No Unable to get utilities (heat,electricity)? No Want help with housing or utility concern? No (!) HOUSING CONCERN PRESENT 01/14/2025 Dental Dentist two times every year? Yes Today's PHQ-2 Score: 01/14/2025 4:37 PM PHQ-2 (??1998 [employer]) Q1: Little interest or pleasure in doing things 0 Q2: Feeling down, depressed or hopeless 0 PHQ-2 Score 0 Q1: Little interest or pleasure in doing things Not at all Q2: Feeling down, depressed or hopeless Not at all PHQ-2 Score 0 Patient-reported 01/14/2025 Substance Use Alcohol more than 3/day or more than 7/wk No Do you use any other substances recreationally? No Social History Tobacco Use Smoking status: Never Passive exposure: Never Smokeless tobacco: Never Vaping Use Vaping status: Never Used Substance Use Topics Alcohol use: No Drug use: No 01/14/2025 STI Screening New sexual partner(s) since last STI/HIV test? (!) YES 01/14/2025 Contraception/Family Planning Questions about contraception or family planning No Reviewed and updated as needed this visit by Provider Tobacco Allergies Meds Problems Med Hx Surg Hx Fam Hx Review of Systems CONSTITUTIONAL: NEGATIVE for fever, chills, change in weight INTEGUMENTARY/SKIN: NEGATIVE for worrisome rashes, moles or lesions EYES: NEGATIVE for vision changes or irritation ENT/MOUTH: NEGATIVE for ear, mouth and throat problems RESP: NEGATIVE for significant cough or SOB BREAST: NEGATIVE for masses, tenderness or discharge CV: NEGATIVE for chest pain, palpitations or peripheral edema GI: NEGATIVE for nausea, abdominal pain, heartburn, or change in bowel habits : NEGATIVE for frequency, dysuria, or hematuria MUSCULOSKELETAL: NEGATIVE for significant arthralgias or myalgia NEURO: NEGATIVE for weakness, dizziness or paresthesias ENDOCRINE: NEGATIVE for temperature intolerance, skin/hair changes HEME: NEGATIVE for bleeding problems PSYCHIATRIC: NEGATIVE for changes in mood or affect Objective Exam BP 117/78 Pulse 79 Temp 97.9 ??F (36.6 ??C) (Temporal) Resp 16 Ht 1.715 m (5' 7.52) Wt 92.5 kg (204 lb) SpO2 97% BMI 31.46 kg/m?? Estimated body mass index is 31.46 kg/m?? as calculated from the following: Height as of this encounter: 1.715 m (5' 7.52). Weight as of this encounter: 92.5 kg (204 lb). Physical Exam GENERAL: alert and no distress [...] normal PSYCH: mentation appears normal, affect normal/bright Signed Electronically by: Alvin Caldwell APRN CNP I am utilizing AI dictation through [employer] to document the patient's history and physical examination. Please note that while the AI is designed to assist in capturing detailed information, there may be errors in the dictation. I will review and edit the content for accuracy before finalizing. documented in this encounter Plan of Treatment Scheduled Orders Name Type Priority Associated Diagnoses Orde r Schedule Lipid panel reflex to direct LDL Fasting Lab Routine Elevated LDL cholesterol level Expected: 01/28/2025 (Approximate), Expires: 01/14/2026 documented as of this encounter Procedures Procedure Name Priority Date/Time Associated Diagnosis Comments HIV ANTIGEN ANTIBODY COMBO Routine 01/14/2025 5:06 PM CDT Screen for STD (sexually transmitted disease) TREPONEMA ABS W REFLEX TO RPR AND TITER Routine 01/14/2025 5:06 PM CDT Screen for STD (sexually transmitted disease) NEISSERIA GONORRHOEAE PCR Routine 01/14/2025 5:06 PM CDT Screen for STD (sexually transmitted disease) CHLAMYDIA TRACHOMATIS PCR Routine 01/14/2025 5:06 PM CDT Screen for STD (sexually transmitted disease) documented in this encounter Results * Neisseria gonorrhoeae PCR [[id number]] (01/14/2025 5:06 PM CDT) Neisseria gonorrhoeae Negative Negative 01/15/2025 7:23 PM CDT [facility] Comment:Negative for N. gono rrhoeae rRNA by property condition assessor mediated amplification. A negative result by property condition assessor mediated amplification does not preclude the presence of C. trachomatis infection because results are dependent on proper and adequate collection, absence of inhibitors and sufficient rRNA to be detected. Neisseria gonorrhoeae Specimen Source Urine, Voided 01/15/2025 7:23 PM CDT [facility] Urine VOIDED URINE SPECIMEN / Unknown Non-blood Collection / Unknown 01/14/2025 5:06 PM CDT 01/14/2025 5:13 PM CDT [facility] - MICRO GENERAL ORDERA BLES Final Result [facility] Inf. Diseases Diag. Lab [address] [facility], [address] * Chlamydia trachomatis PCR [[id number]] (01/14/2025 5:06 PM CDT) Chlamydia trachomatis Negative Negative 01/15/2025 7:23 PM CDT [facility] Comment:A negative result by property condition assessor mediated amplification does not preclude the presence of C. trachomatis infection because results are dependent on proper and adequate collection, absence of inhibitors and sufficient rRNA to be detected. Chlamydia trachomatis Specimen Source Urine, Voided 01/15/2025 7:23 PM CDT [facility] Urine VOIDED URINE SPECIMEN / Unknown Non-blood Collection / Unknown 01/14/2025 5:06 PM CDT 01/14/2025 5:13 PM CDT [facility] Paulette [facility] - MICRO GENERAL ORDERA BLES Final Result [facility] Inf. Diseases Diag. Lab [address] [facility], Room [place] [id number] * Treponema Abs w Reflex to RPR and Titer [[id number]] (01/14/2025 5:06 PM CDT) Treponema Antibody Total Nonreactive Nonreactive 01/15/2025 4:26 PM CDT [facility] Blood STRUCTURE OF LEFT UPPER LIMB / Unknown Venipuncture / Unknown 01/14/2025 5:06 PM CDT 01/14/2025 5:13 PM CDT Alvin Caldwell APRN ROUTE PROCESS ADMINISTRATOR LAB - BLOOD ORDERABLES Fin al Result SPECIALTY CORE/PROT/ENDO UM Specialty Core/Prot/Endo [address] [facility] [address] [facility], Room [id number] [place] [address] SPECIALTY LABS Specialty Lab [address] [facility], Room [address] [address] * HIV Antigen Antibody Combo [[id number]] (01/14/2025 5:06 PM CDT) [facility] HIV Antigen Antibody Combo Nonreactive Nonreactive 01/15/2025 9:45 PM CDT LABORATORY Comment:Negative HIV-1 p24 a ntigen and HIV-1/2 antibody screening test results usually indicate the absence of HIV-1 and HIV-2 infection. However, such negative results do not rule-out acute HIV infection. If acute HIV-1 or HIV-2 infection is suspected, detection of HIV-1 or HIV-2 RNA is recommended. This result is obtained using the [employer] HIV Duo method on the roque [id number] immunoassay analyzer. Blood STRUCTURE OF LEFT UPPER LIMB / Unknown Venipuncture / Unknown 01/14/2025 5:06 PM CDT 01/14/2025 5:13 PM CDT Alvin Caldwell APRN, CNP LAB - BLOOD ORDERABLES Fin al Result LABORATORY [facility] [place] [facility] [address] [facility] [address] [facility], Room [address] [address] documented in this encounter Visit Diagnoses Diagnosis Routine general medical examination at a health care facility- Primary Screen for STD (sexually transmitted disease) Screening examination for venereal disease Elevated LDL cholesterol level Pure hypercholesterolemia documented in this encounter Additional Health Concerns Assessment Noted Time PHQ-9 Depression Total Score: 16 1215/2 021 8:34 AM 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
[2025-02-02 23:50] VITALS: BP 143/92; PULSE 75; RESP 16; TEMP 36.9; O2SAT 99; BMI 28.9
--- OUTSIDE RECORDS SUMMARY | 2025-02-03 00:37 | XMS_ITS | Clinical Summary ---
Author Organization [facility] Address [address], [place] [address] Care Team Providers Care Real Estate Broker Associate Name Role Phone No Primary/Referring, Phy Primary Care Provider Unavailable Source Comments You are receiving this document as you are listed as the primary care provider,follow-up provider, or the patient has been referred to you for consultation.This is in compliance with the Medicare and[facility] EHR Incentive Program,which states Providers who transition their patient to another setting of careor provider of care or refers their patient to another provider of care shouldprovide summary care record for each transition of care or referral. Standing Cloud Allergies Active Allergy Reactions Criticality Noted Date Comments Latex Redness 11/08/2022 Medications cyclobenzaprine (FLEXERIL) 5 MG tablet Take 1 Tablet (5 mg) by mouth at bedtime as needed. 10/26/19 22 Active diclofenac (VOLTAREN) 1 % gel 2 g 4 times a day. 10/29/19 22 Active SUMAtriptan (IMITREX) 100 MG tablet 100mg one time. May repeat 100 mg once again, up to a maximum of 200mg in 24 hours. 08/03/20 21 Active topiramate (TOPAMAX) 25 MG tablet Take 1 tablet (25 mg) at bedtime for 1 week, then 1 tablet twice daily for 1 week, then 1 tablet in AM and 2 in PM for 1 week, then 2 tablets twice daily. 11/30/19 22 Active semaglutide-weight management (WEGOVY) 0.25 MG/0.5ML pen injection Inject 0.5 mL (0.25 mg) subcutaneously once every week. Active minoxidil (LONITEN) 10 MG tablet Take 1 Tablet (10 mg) by mouth daily. Active acetaminophen (TYLENOL) 500 MG tablet Take 1-2 Tablets (500-1,000 mg) by mouth every 6 hours as needed. 100 Tablet 1 01/17/20 24 Active oxyCODONE (ROXICODONE) 5 MG immediate release tablet Take 1 Tablet (5 mg) by mouth every 6 hours as needed. 8 Tablet 01/17/20 24 Active Additional Information Patient not taking.Reported on 02/04/2024 ibuprofen (MOTRIN) 200 MG tablet Take 1-3 Tablets (200-600 mg) by mouth every 6 hours as needed. 100 Tablet 1 01/17/20 24 Active docusate sodium (COLACE) 100 MG capsule Take 1 Capsule (100 mg) by mouth two times a day. 40 Capsule 1 01/17/20 24 Active ondansetron (ZOFRAN-ODT) 4 MG disintegrating tablet Take 1 Tablet (4 mg) by mouth every 8 hours as needed. 12 Tablet 1 01/17/20 24 Active Active Problems Problem Noted Date Diagnosed Date Patellofemoral pain syndrome of right knee 07/08 Postop check 02/04/2024 Sesamoiditis of right foot 03/03/2022 Pain in joint involving right ankle and foot 05/2022 Right foot pain 12/27/2021 Cervicalgia 07/26/2006 Lumbago 07/26/2006 Encounters Date Type Department Care Team Description 12/24/2024 11:45 AM CDT Ancillary Procedure [facility] [address] [place] [address] Vini Yip MD Patellofemoral arthritis of right knee 12/24/2024 11:40 AM CDT Office Visit [facility] Orthopedic [facility] [address] [place] [address] Vini Yip MD Patellofemoral arthritis of right knee (Primary Dx) 12/11/2024 Telephone [facility] [place] [address] [place] [address] Vini Yip MD Orders Needed 12/08/2024 3:40 PM CDT Office Visit [facility] [place] [address] [place] [address] Solis Hernandes PA-C Patellofemoral arthritis of right knee (Primary Dx) 12/08/2024 Telephone [facility] [place] [address] [place] [address] Solis Hernandes PA-C Prior Authorization Request 11/29/2024 8:15 AM CDT Therapy [facility] [address] [address] Jadiel Stewart, PT Chronic pain of right knee (Primary Dx) 11/22/2024 8:15 AM CDT Therapy [facility] [address] [address] Keira Herrera, PT Chronic pain of right knee (Primary Dx) 11/15/2024 8:15 AM CDT Therapy [facility] [address] [address] Issac Kramer, PT Chronic pain of right knee (Primary Dx) from Last 3 Months Immunizations Immunization Administration Dates Next Due DTP 02/25/1992, 9,05/18/1987,1986,1986 HepB Adult (Engerix-B, 20+ y rs, 3 dose series) 11/13/2006,08/18/2005,09/10/2002 IPV (Polio) 02/25/1992, 9,02/18/1987,1986 Influenza IIV4 (Quadrivalent ) 0.5mL ([id number]) 09/01/2015 MMR 05/18/1999,06/19/1989 Td 05/18/1999 Tdap 09/01/2015 [...] Health Maintenance Due Date Last Done Comments Hep C Screening (Preventive Services) 1986 HIV Screening (Preventive Services) 2002 Adult Preventive Visit 2004 Cholesterol 2021 COVID-19 Vaccine ( season) 2024 01/11/2021, 12/21/2020 Influenza Vaccine (Season Ended) 2025 09/01/2015 DTaP/Tdap/Td Vaccine (7 - Tdap) 09/01/2025 09/01/2015, 05/18/1999, 05/18/1999, Additional history exists Zoster/Shingles Vaccine (1 of 2) 2036 IPV (Polio) Vaccine Completed 02/25/1992, 06/19/1989, 02/18/1987, Additional history exists HepB Vaccine Completed 11/13/2006, 07/22, 09/10/2002 HPV Vaccine Aged Out No longer eligi ble based on patient's age to complete this topic HepA Vaccine Aged Out No longer eligi ble based on patient's age to complete this topic Hib Vaccine Aged Out No longer eligi ble based on patient's age to complete this topic MCV4 Vaccine Aged Out No longer eligi ble based on patient's age to complete this topic Meningococcal B Vaccine Aged Out No l onger eligible based on patient's age to complete this topic Pneumococcal Vaccine Aged Out No long er eligible based on patient's age to complete this topic Procedures Procedure Name Priority Date/Time Associated Diagnosis Comments XR KNEE RT 2 VIEWS Routine 12/24/2024 11 :47 AM CDT Patellofemoral arthritis of right knee from Last 3 Months Results * XR Knee Rt 2 Views [...] Vini Yip MD RAD GD Final Result from Last 3 Months Insurance [facility] Member Subscriber Plan / Payer (Ef fective 2024-Present) Name:Cheng Godfrey Relation to Subscriber:Self Name:Cheng Godfrey Payer ID:Not on file Type:Commercial Address: [address] [facility] INSURANCE MIS INS WORK COMP WORKCOMP PENDING [facility] Advance Directives * Full Code (Latest Code Status on File) Date Activated Date Inactivated Comments 01/17/2024 11:21 AM 01/17/2024 3:41 PM Care Teams Real Estate Broker Associate Relationship Specialty Start Date End Date No Primary/Referring, Phy PCP - General 05/15/14
--- OUTSIDE RECORDS SUMMARY | 2025-02-03 00:37 | XMS_ITS | Patient Health Record ---
Author Organization [facility] Address [address] [place] [address] Care Team Providers Care Produce Buyer Name Role Phone None, None Primary Care Provider CHRISTINA Hernandez Unavailable [phone] Jennifer Parks Unavailable [phone] Allergies No Known Allergies Reason For Referral No Information Medications Medication SIG (Take, Route, Frequency, Duration) Notes Start Date End Date Status Wegovy 2.4 MG/0.75ML Solution Auto-injector Subcutaneous; Duration: 28 Days Active Minoxidil 2.5 MG Tablet TAKE 2 TABLETS B Y MOUTH EVERY DAY DIRECTED Oral; Duration: 30 Active Social History Tobacco Use: Social History Observation Description Date Details (start date - stop date) Never Smoker NA - NA Social History Tobacco Use: Social Info Question Answer Notes Tobacco use/smoking Are you a nonsmoker Are you a nonsmoker Problems Problem Type SNOMED Code ICD Code Onset Dates Problem Status W/U Status Risk Notes Problem Epistaxis (284158781) Epistaxis (784.7) Active confirmed Problem Deviated nasal septum (298310046) Nasal septal deviation (470) Active confirmed Problem Breathing-related sleep disorder (disorder) (283858852) Sleep disorder breathing (G47.30) Active confirmed Problem Tonsillar hypertrophy (00307981) Tonsillar hypertrophy (J35.1) Active confirmed Problem History of tonsillectomy (situation) (629641011) S/P tonsillectomy (Z90.89) Active confirmed Problem Nasal congestion (31193907) Chronic nasal congestion (R09.81) Active confirmed Problem Deviated nasal septum (719623216) Deviated nasal septum (J34.2) Active confirmed Problem Sensorineural hearing loss of right ear with normal hearing on left side (disorder) (9598950332) Sensorineural hearing loss (SNHL) of right ear with unrestricted hearing of left ear (H90.41) Active confirmed Problem Acquired nasal deformity (01389571) Acquired nasal deformity (M95.0) Active confirmed Problem Sensorineural hearing loss, bilateral (237746127) Bilateral sensorineural hearing loss (H90.3) Active confirmed Problem Sensorineural hearing loss of left ear with normal hearing on right side (disorder) (2290135673) Sensorineural hearing loss (SNHL) of left ear with unrestricted hearing of right ear (H90.42) Active confirmed Vital Signs Height-cm 172.72 cm 09/03/2024 Weight-kg 110.68 kg 09/03/2024 Height 68 in 09/03/2024 Weight 244 lbs 09/03/2024 BMI 37.1 kg/m2 09/03/2024 Procedures Procedure Date Ordered Date Performed Result Body Sit e Surgery 07/09/2024 07/21/2024 08-28-24 Encounters Encounter Location Date Provider Diagnosis [facility] [address] [place] [address] [address] [place] [address] 07/09/2024 CHRISTINA HURLEY Deviated septum J34. 2 ; Nasal turbinate hypertrophy J34.3 ; Drainage from ear, left H92.12 and Bilateral sensorineural hearing loss H90.3 [facility] [address] [place] [address] 07/09/2024 Jennifer Parks Sensorineural hearin g loss (SNHL) of left ear with unrestricted hearing of right ear H90.42 [facility] [address] [facility] [address] [place] [address] 08/28/2024 CHRISTINA HURLEY [facility] [address] [place] [address] 09/03/2024 CHRISTINA HURLEY Status post nasal surgery V45.89 [facility] [address] [place], [place] [address] [address] [place] [address] 07/15/2024 CHRISTINA HURLEY [facility] [address] [place] [address] 07/21/2024 CHRISTINA HURLEY Assessments Encounter Date Diagnosis (ICD Code) Assessment Notes Treatment Notes Treatment Clinical Notes Section Notes 07/09/2024 Deviated septum (ICD-10 - J34.2) We discussed today's examination and management options. He has failed medical management with topical nasal steroid sprays as well as Astelin. He has used these medications for greater than three months without relief of the obstruction. Examination confirms a deviated septum to the left lung with turbinate hypertrophy. I have recommended septoplasty and bilateral submucous resection of the inferior turbinates. We discussed the risks and benefits of the procedure the risks of surgery include but are not limited to bleeding, infection, scarring, asymmetry of air flow through the nose after surgery, damage to the septum including hematoma preparation, and the potential need for revision procedure. He expressed understanding. Our office will contact him regarding scheduling. 07/09/2024 Nasal turbinate hypertrophy (ICD-10 - J34.3) 07/09/2024 Sensorineural hearing loss (SNHL) of left ear with unrestricted hearing of right ear (ICD-10 - H90.42) 09/03/2024 Status post nasal surgery (ICD9-CM - V45.89) I have asked the patient to avoid strenuous activity, lifting greater than 15 pounds, and nose blowing for 1 more week. Use peroxide and Q-tips as needed to clean any bleeding or crusting. Apply Bacitracin ointment to the anterior septum twice daily for 1 more week. Continue nasal saline twice daily until at least the next visit. Return as needed 07/09/2024 Drainage from ear, left (ICD-10 - H92.12) No evidence of infection. No drainage is noted, I counseled him that Q-tip use may contribute to otitis externa. Avoid Q-tips if possible 07/09/2024 Bilateral sensorineural hearing loss (ICD-10 - H90.3) very mild bilateral sensorineural hearing loss in the high frequencies. Patient is encouraged to follow-up if there is any changes to his hearing 07/09/2024 Other Body mass index material was published Plan Of Treatment No Information Insurance Providers Payer Name Payer Address Payer Phone Subscriber Number Group Number Insured Name Patient Relationship to Insured Coverage Start Date Coverage End Date [employer] [address] [address] [place], [place] [id number] Cheng Verdugo Self - patient is the insured Medications Administered Medication Instructions Date of Administration Dosage Notes Kenalog 40 mg/ml 11/15/2022 80 mg LOT # [id number] Medical (General) History Surgical History Surgery Date(Month/Year) Tonsillectomy- JM 11/09/2022 justina christopher [facility] [place] 08/28/2024
--- OUTSIDE RECORDS SUMMARY | 2025-02-03 00:37 | XMS_ITS | Encounter Summary ---
Author Organization [facility] Address [address] [place] [address] Care Team Providers Care Carpenter Cradle And Dolly Name Role Phone Isabel Valderrama NP Primary Care Provider [phone] Amy Sierra MD Unavailable [phone] Isabel Valderrama NP Unavailable [phone] Reason for Visit * Reason Onset Date Comments Refill Request 04/01/2024 minoxidil (LONIT EN) 2.5 MG tablet 60 tablet 2 01/21/2024 Encounter Details Date Type Department Care Team (Late st Contact Info) Description 04/01/2024 MyC Refill [facility] [address] [place] [address] Isabel Valderrama, ASSISTANT PROFESSOR OF EDUCATION [address] [id number] Refill Request (minoxidil (LONITEN) 2.5 MG... 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 RECEIVED Gender Identity Not on file Sexual Orientation Not on file documented as of this encounter Miscellaneous Notes * Telephone Encounter - Leydi Major RN - 04/04/2024 9:43 AM CDT minoxidil (LONITEN) 2.5 MG tablet 60 tablet 2 01/21/2024 Message sent to patient in MyChart-refills should be available Leydi Major RN [facility] Central Nursing/Red Flag Triage & Med Refill Team documented in this encounter Plan of Treatment Not on file documented as of this encounter Visit Diagnoses Diagnosis Hair loss Alopecia, unspecified documented in this encounter Additional Health Concerns Assessment Noted Time PHQ-9 Depression Total Score: 16 021 8:34 AM CASHIER PAYMENTS RECEIVED documented as of this encounter Care Teams Carpenter Cradle And Dolly Relationship Specialty Start Date End Date Isabel Valderrama NP [address] [place] [address] PCP - General Family Medicine 08/11/21 Amy Sierra MD [address] [place] [address] [phone] Neurology 01/26/22 Isabel Valderrama NP [address] [place] [address] Assigned PCP 11/18/22 documented as of this encounter
--- OUTSIDE RECORDS SUMMARY | 2025-02-03 00:37 | XMS_ITS | Encounter Summary ---
Author Organization [facility] Address [address], [place] [address] Care Team Providers Care Leadlighter Name Role Phone No Primary/Referring, Phy Primary Care Provider Unavailable Reason for Visit * Reason Comments APPOINTMENT REQUEST Encounter Details Date Type Department Care Team (Late st Contact Info) Description 10/09/2024 Telephone [facility] [place] [address] [place] [address] Alexandra Jon MD [address] [place] [address] [address] [place], [place] 6[address] APPOINTMENT REQUEST Social History Tobacco Use Types Packs/Day Years [...] on file documented as of this encounter Nursing Notes * Velia Pena RN - 10/10/2024 9:40 AM CST Assembler Arranger attempted calling pt with general repair mechanic and mailbox was full and could not leave a message. Will try again at a later time. CULTURE INSPECTOR * Vanessa Velasquez - 10/09/2024 4:04 PM CST GENERAL QUESTIONS How may we help you today? Patient wants to know if he can be seen on october 20 Describe your symptoms/concerns: october 20 appointment When did the issue start: 10/09/24 Have you been seen for this recently?: Yes: Date: 07/21/24 Provider: Alexandra Jon If we are unable to reach you can we leave a detailed message on your voicemail? Yes If we are unable to reach you can we send you a message in Possible Web? No [Industrial Maintenance Technician/Histology Tech: Relay to patient; We make every effort to get back to you sameday, however it may take 1-2 business days depending on the nature of the communication.] CULTURE INSPECTOR documented in this encounter Plan of Treatment Not on file documented as of this encounter Visit Diagnoses Not on filedocumented in this encounter Care Teams Leadlighter Relationship Specialty Start Date End Date No Primary/Referring, Phy PCP - General 05/15/14 documented as of this encounter
--- OUTSIDE RECORDS SUMMARY | 2025-02-03 00:37 | XMS_ITS | Encounter Summary ---
Author Organization [facility] Address [address] [place] [address] Care Team Providers Care Product Safety Tester Name Role Phone Isabel Valderrama NP Primary Care Provider [phone] Amy Sierra MD Unavailable [phone] Isabel Valderrama NP Unavailable [phone] Encounter Details Date Type Department Care Team (Late st Contact Info) Description 03/25/2024 MyC Medical Advice [facility] [address] [place] [phone] Eugenia Miller Social History Tobacco Use Types [...] in an abandoned building, in an overnight custodial, or couch-surfing.) Yes 12/31/2023 Are you worried [...] on file Legal 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 Gender Identity Not on file Sexual Orientation Not on file documented as of this encounter Plan of Treatment Not on file documented as of this encounter Visit Diagnoses Not on filedocumented in this encounter Additional Health Concerns Assessment Noted Time PHQ-9 Depression Total Score: 16 021 8:34 AM TELECOMMUNICATIONS FACILITY EXAMINER documented as of this encounter Care Teams Product Safety Tester Relationship Specialty Start Date End Date Isabel Valderrama NP [address] [place] [address] PCP - General Family Medicine 08/11/21 Amy Sierra MD [address] [place] [address] Neurology 01/26/22 Isabel Valderrama NP [address] [place] [address] Assigned PCP 11/18/22 documented as of this encounter
--- OUTSIDE RECORDS SUMMARY | 2025-02-03 00:37 | XMS_ITS | Encounter Summary ---
Author Organization [facility] Address [address] [facility] 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 Male 4:45 AM CONVEYOR MAN Gender Identity Not on file Sexual Orientation Not on file documented as of this encounter Plan of Treatment Not on file documented as of this encounter Visit Diagnoses Not on filedocumented in this encounter Additional Health Concerns Assessment Noted Time PHQ-9 Depression Total Score: 16 021 8:34 AM CONVEYOR MAN documented as of this encounter Care Teams Barbering Teacher Relationship Specialty Start Date End Date Isabel Valderrama NP [address] [place] [address] PCP - General Family Medicine 08/11/21 Amy Sierra MD [address] [place] [address] Neurology 01/26/22 Isabel Valderrama NP [address] [place] [address] Assigned PCP 11/18/22 documented as of this encounter
--- OUTSIDE RECORDS SUMMARY | 2025-02-03 00:37 | XMS_ITS | Patient Health Record ---
Author Organization [facility] Address [address] [place] [address] [address] [place] [address] Care Team Providers Care Coloring Checker Name Role Phone Sammy Cunningham Primary Care Provider [phone] Marysol OSCAR DC, Casandra Unavailable Unavaila Mirza Hernandez Unavailable [phone] Sulaiman Patel Unavailable [phone] Sukhdev Coughlin Unavailable [phone] Ever Patricia Unavailable [phone] Cliff Guerra Unavailable [phone] Faith Iglesias Unavailable Unavailable Allergies No Known Allergies Reason For Referral [...] Last Name Murray Referring Provider Speciality Physician Pharmacy Resource Tech Referred Organization [facility] Referred Provider Edil Pierre Referred Address [address] [facility] [place], [place],[address], Referred Provider Specialty Rehabilitati on General Notes [...] W/U Status Risk Notes Problem Chronic pain (10040977) Other chronic pain (G89.29) Active confirmed Vital Signs Blood pressure diastolic 90 mm Hg 07/09/2024 Height 68 in 07/09/2024 Blood pressure systolic 152 mm Hg 07/09/2024 Weight 203 lbs 07/09/2024 BMI 30.86 kg/m2 07/09/2024 Procedures Procedure Date Ordered Date Performed Result Body Sit e Intervention: 07/09/2024 07/15/2024 sched 07/24 Encounters Encounter Location Date Provider Diagnosis [facility] [address] [place] [address] [address] [place] [address] 07/09/2024 Sammy Wick Pain in thoracic spine M54.6 ; Low back pain, unspecified M54.50 ; Myalgia, other site M79.18 and Other chronic pain G89.29 [facility] [address] [place] [address] [address] [place] [address] 06/24/2024 Sulaiman Patel [facility] [address] [place] [address] [address] [place] [address] 06/26/2024 Mirza Delarosa Assessments Encounter Date Diagnosis (ICD Code) Assessment Notes Treatment Notes Treatment Clinical Notes Section Notes 07/09/2024 Pain in thoracic spine (ICD-10 - M54.6) p 07/09/2024 Low back pain, unspecified (ICD-10 - M54.50) p 07/09/2024 Myalgia, other site (ICD-10 - M79.18) p 07/09/2024 Other chronic pain (ICD-10 - G89.29) Cheng presents to clinic today for an evaluation regarding his chronic mid-back and low back pain. We discussed his current symptoms and medications. After a physical examination in clinic today, I will order bilateral thoracic TPIs to address his bothersome mid back pain. I will refer Cheng to [facility] for a course of MedX therapy treating his mid-low back pain. I will consider a thoracic and lumbar MRIs in the future if the above treatment does not provide him with adequate relief. In regard to medication, I have reviewed the [place] [employer] database and did not find any inconsistencies. I will start him on Ibuprofen and Flexeril as listed above for treatment of his mid-low back pain. This plan was reviewed with Cheng and he was agreeable. I will continue to monitor his symptoms and he will follow up as needed. Plan: 1. Order bilateral thoracic TPIs 2. Refer to [facility] re: MD consult 3. Consider thoracic and lumbar MRIs 4. Start Ibuprofen 800mg up to TID 5. Start Flexeril 5mg #1-2 QHS 6. Follow-up as needed Discharge instructions reviewed verbally. Discussed the risks/benefits of prescribed medication. The patient was instructed to return to the office as scheduled and call with any questions, problems or concerns. p 07/09/2024 Other I, Alise Currie, am serving as a [...] questions or concerns regarding his care plan. p Plan Of Treatment No Information Insurance Providers Payer Name Payer Address Payer Phone Subscriber Number Group Number Insured Name Patient Relationship to Insured Coverage Start Date Coverage End Date [facility] [address] [place] [address] [id number] Cheng Verdugo Self - patient is the insured [facility] [address] [address] [place] [address] [phone] [id number] Cheng Verdugo Self - patient is the insured
--- OUTSIDE RECORDS SUMMARY | 2025-02-03 00:38 | XMS_ITS | Encounter Summary ---
Author Organization [facility] Address [address] [place] [address] Care Team Providers Care Broadcast Chief Engineer Name Role Phone Isabel Valderrama NP Primary Care Provider [phone] Amy Sierra MD Unavailable [phone] Isabel Valderrama NP Unavailable [phone] Encounter Details Date Type Department Care Team (Latest Contact Info) Description 01/14/2025 Travel Social History Tobacco Use Types Packs/Day [...] than three times a week 01/14/2025 Attends Rastafarian Services Not on file 01/14 Active Member of Clubs or Organizations Not on f ile 01/14/2025 Attends Club or Organization Meetings Not on jacque e 01/14/2025 Marital Status Not on file 01/14/2025 PHQ-2 Answer Date Recorded PHQ-2 Score 0 01/14/2025 [facility] of Occupat ional Health - Occupational Stress [...] in an abandoned building, in an overnight jail, or couch-surfing.) No 01/14/2025 Are you worried [...] on file 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 Gender Identity Not on file Sexual Orientation Not on file documented as of this encounter Plan of Treatment Not on file documented as of this encounter Visit Diagnoses Not on filedocumented in this encounter Additional Health Concerns Assessment Noted Time PHQ-9 Depression Total Score: 16 021 8:34 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
--- OUTSIDE RECORDS SUMMARY | 2025-02-03 00:38 | XMS_ITS | Clinical Summary ---
Author Organization [facility] Address [address] [place] [address] Care Team Providers Care Hr Representative Name Role Phone Nonstaff, Doctor Primary Care Provider Unavailab le Allergies Active Allergy Reactions Criticality Noted Date Comments Latex Erythema 11/08/2022 Medications ibuprofen (ADVIL; MOTRIN) 600 mg tablet Take 600 mg by mouth. Active SUMAtriptan (IMITREX) 25 mg tabletIndicatio ns:Migraine syndrome Take 1 Tablet (25 mg) by mouth 2 times daily if needed for Migraine. Give at minimum 2hrs apart. Max Dose: 200mg per 24hrs. 10 Tablet 3 06/07/2021 Active ondansetron (ZOFRAN) 8 mg tabletIndicatio ns:Surgery, elective Take 1 Tablet (8 mg) by mouth every 8 hours if needed for Nausea/Vomit ing. 8 Tablet 2 11/09/2022 10:47 AM CDT 11/09/2022 Active oxyCODONE (ROXICODONE) 5 mg/5 mL solutionIndicat ions:Surgery, elective Take 5-10 mL (5-10 mg) by mouth every 4 hours if needed for Pain. 120 mL 11/09/2022 10:47 AM CDT 11/09/2022 Active cyclobenzaprine (FLEXERIL) 5 mg tablet [...] mg by mouth once daily. 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 Gender Identity Not on file Sexual Orientation [...] series ( season) 2024 01/11/2021, 12/21/2020 Influenza Vaccine (Season Ended) 2025 Tetanus booster 09/01/2025 09/01/2015, 04/21, 05/18/1999, Additional history exists Hepatitis B series for 19+ Completed 11/13, 08/18/2005, 09/10/2002 Tdap Completed 09/01/2015, 05/18/1999 Pneumococcal series for age 6-49 Aged Out No longer eligible based on patient's age to complete this topic Insurance [employer] WORK[employer] COMP WORKERS COMP Advance Directives * Full Code (Latest Code Status on File) Date Activated Date Inactivated Comments 11/09/2022 8:46 AM 11/09/2022 3:23 PM Question Answer Comments Code Status Discussion: Reviewed Preferences Care Teams Hr Representative Relationship Specialty Start Date End Date Nonstaff, Doctor NON STAFF DOCTOR PCP - General 10/25/22
--- OUTSIDE RECORDS SUMMARY | 2025-02-03 00:38 | XMS_ITS | Encounter Summary ---
Author Organization [facility] Address [address] [place] [address] Care Team Providers Care College Professor Name Role Phone Isabel Valderrama NP Primary Care Provider [phone] Amy Sierra MD Unavailable [phone] Isabel Valderrama NP Unavailable [phone] Encounter Details Date Type Department Care Team ([facility] Contact Info) Description 01/09/2025 Results Follow-Up [facility] [address] [place] [address] Chance Gill MD [address] [place], [place] 217172 Subj: Message about your results Social History Tobacco Use Types Packs/Day Years [...] in an abandoned building, in an overnight alf, or couch-surfing.) Yes 12/31/2023 Are you worried [...] on file 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 Gender Identity Not on file Sexual Orientation Not on file documented as of this encounter Miscellaneous Notes * Result Encounter Note - Cahnce Gill MD - 01/09/2025 6:55 AM CDT Preop labs are fine Okay for procedure Chance Gill MD documented in this encounter Plan of Treatment Not on file documented as of this encounter Visit Diagnoses Not on filedocumented in this encounter Additional Health Concerns Assessment Noted Time PHQ-9 Depression Total Score: 16 021 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
--- OUTSIDE RECORDS SUMMARY | 2025-02-03 00:38 | XMS_ITS | Encounter Summary ---
Author Organization [facility] Address [address] [facility] [place] [address] Care Team Providers Care Oil Agent Name Role Phone Isabel Valderrama NP Primary Care Provider [phone] Amy Sierra MD Unavailable [phone] Isabel Valderrama NP Unavailable [phone] Encounter Details Date Type Department Care Team ([facility] Contact Info) Description 01/16/2025 Results Follow-Up [facility] [address] [place] [phone] Alvin Caldwell APRN [facility] [address] [place], [place] [phone] Subj: Message about your results Social History [...] than three times a week 01/14/2025 Attends Hoahaoism Services Not on file 01/14 Active Member of Clubs or Organizations Not on f ile 01/14/2025 Attends Club or Organization Meetings Not on jacque e 01/14/2025 Marital Status Not on file 01/14/2025 PHQ-2 Answer Date Recorded PHQ-2 Score 0 01/14/2025 [facility] - Occupational Stress Questionnaire Answer Date Recorded [...] Date Recorded Do you have housing? 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 Chelsi Kelley Middleware Consultant documented in this encounter Plan of Treatment Not on file documented as of this encounter Visit Diagnoses Not on filedocumented in this encounter Additional Health Concerns Assessment Noted Time PHQ-9 Depression Total Score: 16 021 8:34 AM BILINGUAL ACCOUNT MANAGER documented as of this encounter Care Teams Oil Agent Relationship Specialty Start Date End Date Isabel Valderrama ARRANGING FUNERAL DIRECTOR [address] [place] [address] PCP - General Family Medicine 08/11/21 Amy Sierra MD [address] [place] [address] [phone] Neurology 01/26/22 Isabel Valderrama NP [address] [place] [address] Assigned PCP 11/18/22 documented as of this encounter
--- OUTSIDE RECORDS SUMMARY | 2025-02-03 00:38 | XMS_ITS | Clinical Summary ---
Author Organization [facility] Address [address] [place] [address] Care Team Providers Care Banking Assistant Name Role Phone Isabel Valderrama NP Primary Care Provider [phone] Amy Sierra MD Unavailable [phone] Isabel Valderrama NP Unavailable [phone] Allergies Active Allergy Reactions Criticality Noted Date Comments Latex Other (See Comments) 11/08/2022 Medications SUMAtriptan (IMITREX) 100 MG tabletIndicatio ns:Other migraine without status migrainosus, not intractable 100mg one time. May repeat 100 mg once again, up to a maximum of 200mg in 24 hours. 20 tablet 3 021 Active Additional Information Patient not taking.Reported on 01/07/2025 topiramate (TOPAMAX) 25 MG tabletIndicatio ns:Migraine without aura and without status migrainosus, not intractable TAKE 1 TABLET BY MOUTH AT BEDTIME X1 WEEK, THEN 1 TABLET TWICE DAILY X1WEEK, THEN 1 IN AM AND 2 IN PM X1 WEEK, THEN 2 TABLETS TWICE DAILY. 70 tablet 024 Active WEGOVY 2.4 MG/0.75ML pen Inject 2.4 mg subcutaneously once a week. 024 Active emtricitabine-t enofovir (TRUVADA) 200-300 MG per tablet Take 1 tablet by mouth daily. 025 2024 Active lisinopril (ZESTRIL) 20 MG tabletIndicatio ns:Benign essential hypertension Take 1 tablet (20 mg) by mouth daily 90 tablet 1 023 2024 Discontinued ibuprofen (ADVIL/MOTRIN) 100 MG/5ML suspensionIndic ations:Moderate pain Take 30 mLs (600 mg) by mouth every 6 hours as needed for fever or moderate pain (4-6) 473 mL 1 023 2024 Discontinued(M ed Rec(No AVS / No eCancel)) minoxidil (LONITEN) 2.5 MG tabletIndicatio ns:Hair loss Take 1 tablet (2.5 mg) by mouth daily 60 tablet 2 024 2024 Discontinued clotrimazole (LOTRIMIN) 1 % external creamIndication s:Balanitis Apply twice daily to affected area as needed 30 g 025 2024 Discontinued(M ed Rec(No AVS / No eCancel)) Active Problems Problem Noted Date Diagnosed Date Morbid obesity 12/07/2022 Pain in joint involving ankle and foot 4 Resolved Problems Problem Noted Date Diagnosed Date Resolved Date Acute pain of right knee 09/10/202105/2022 Pain in joint involving ankle and foot, right 09/10/1912/27/2021 Lumbago 09/15/2006 10/12/2006 Encounters Date Type Department Care Team Description 01/16/2025 Results Follow-Up [address] [place] [address] Alvin Caldwell APRN CNP Subj: Message about your results 01/14/2025 5:00 PM CDT Office Visit [address] [place] [address] Alvin Caldwell APRN CNP Routine general medical examination at a health care facility (Primary Dx); Screen for STD (sexually transmitted disease); Elevated LDL cholesterol level 01/14/2025 Travel 01/09/2025 Results Follow-Up [address] [place] [address] Chance Gill MD Subj: Message about your results 01/07/2025 5:00 PM CDT Office Visit [address] [place] [phone] Chance Gill MD Preop general physical exam (Primary Dx); Foreskin problem; Balanitis 01/07/2025 Travel from Last 3 Months Immunizations Immunization Administration Dates Next Due DTAP (<7y) 02/25/1992, 9,05/18/1987,1986,1986 Hepatitis B, Adult (Energix-B/Recombivax HB) 11/13/2006,08/18/2005,09/10/2002 Historical DTP/aP 02/25/1992, 9,05/18/1987,1986,1986 Influenza Vaccine >6 months,quad, PF 09/01/2015 MMR (MMRII) 05/18/1999,06/19/1989 Poliovirus, inactivated (IPV) 02/25/1992 ,06/19/1989,02/18/1987,1986 TD,PF 7+ (Tenivac) 05/18/1999 TDAP (Adacel,Boostrix) 09/01/2015,05/18/1999 Varicella (Varivax) 08/18/2005,09/10/2002 Family History Medical History Relation Comments [...] Passive Smoke Exposure: Never Smokeless Tobacco: Never Tobacco Cessation:Counseling Given: [...] than three times a week 01/14/2025 Attends [facility] Not on file 05/28 /2025 Active Member of Clubs or Organizations Not on f ile 01/14/2025 Attends Club or Organization Meetings Not on jacque e 01/14/2025 Marital Status Not on file 01/14/2025 PHQ-2 Answer Date Recorded PHQ-2 Score 0 01/14/2025 [facility] [place] of Occupat ional Health - Occupational Stress [...] an abandoned building, in an overnight senior care, or couch-surfing.) No 01/14/2025 Are you worried [...] on file 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 Gender Identity Not on file Sexual Orientation [...] Mass Index 31.46 01/14/2025 4:41 PM CDT Plan of Treatment Health Maintenance Due Date Last Done Comments COVID-19 VACCINE ( season) 2024 01/11/2021, 12/21/2020 INFLUENZA VACCINE (Season Ended) 2025 09/01/2015 DTAP/TDAP/TD VACCINE (8 - Td or Tdap) 09/01/2025 09/01/2015, 05/18/1999, 05/18/1999, Additional history exists BMP 01/07/2026 01/07/2025, 07/20, 12/31/2023, Additional history exists ANNUAL REVIEW OF HM ORDERS 01/14/2026 01/14/2025 YEARLY PREVENTIVE VISIT 01/14/2026 01/14/2025 DIABETES SCREENING 01/08/2028 01/07/2025, 1 09/30/2023, 12/31/2023, Additional history exists ADVANCE CARE PLANNING 01/14/2030 01/14/2025 , 07/30/2024, 12/31/2023, Additional history exists ZOSTER VACCINE (1 of 2) 2036 HEPATITIS B VACCINE Completed 11/13/2006, 08/18/2005, 09/10/2002 HEPATITIS C SCREENING Completed 06/02/2024 HIV SCREENING Completed 01/14/2025, 06/02/2024 PHQ-2 (once per calendar year) Completed 01/14/2025, 01/07/2025, 01/21/2024, Additional history exists HPV VACCINE Aged Out No longer eligi ble based on patient's age to complete this topic MENINGITIS VACCINE Aged Out No longer eligible based on patient's age to complete this topic PNEUMOCOCCAL VACCINE: PEDIATRICS (0 to 5 YEARS) AND AT-RISK PATIENTS (6 to 49 YEARS) Aged Out No longer eligible based on patient's age to complete this topic Procedures Procedure Name Priority Date/Time Associated Diagnosis Comments NEISSERIA GONORRHOEAE PCR Routine 01/14/2025 5:06 PM CDT Screen for STD (sexually transmitted disease) CHLAMYDIA TRACHOMATIS PCR Routine 01/14/2025 5:06 PM CDT Screen for STD (sexually transmitted disease) TREPONEMA ABS W REFLEX TO RPR AND TITER Routine 01/14/2025 5:06 PM CDT Screen for STD (sexually transmitted disease) HIV ANTIGEN ANTIBODY COMBO Routine 01/14/2025 5:06 PM CDT Screen for STD (sexually transmitted disease) CBC WITH PLATELETS & DIFFERENTIAL Routine 01/07/2025 5:22 PM CDT Preop general physical exam CBC WITH PLATELETS AND DIFFERENTIAL Routine 01/07/2025 5:22 PM CDT Preop general physical exam BASIC METABOLIC PANEL Routine 01/07/2025 5:22 PM CDT Preop general physical exam from Last 3 Months Results * HIV Antigen Antibody Combo [[id number]] (01/14/2025 5:06 PM CDT) HIV Antigen Antibody Combo Nonreactive Nonreactive 01/15/2025 9:45 PM CDT [facility] Comment:Negative HIV-1 p24 a ntigen and [...] 01/14/2025 5:13 PM CDT Alvin Caldwell APRN [facility] LAB - BLOOD ORDERABLES Fin al Result LABORATORY [facility] [place] Core Lab [address] [facility], [address] [phone] * Treponema Abs w Reflex to RPR and Titer [[id number]] (01/14/2025 5:06 PM CDT) Pathologist [facility] Treponema Antibody Total Nonreactive Nonreactive 01/15/2025 4:26 PM CDT SPECIALTY LABS Blood STRUCTURE OF LEFT UPPER LIMB / Unknown Venipuncture / Unknown 01/14/2025 5:06 PM CDT 01/14/2025 5:13 PM CDT Alvin Caldwell APRN [facility] LAB - BLOOD ORDERABLES Fin al Result Performing Organization Address City/[facility]/ZIP Co de Phone Number SPECIALTY CORE/PROT/ENDO Specialty Core/Prot/Endo [address] [facility], [phone] [place] [address] SPECIALTY LABS Specialty Lab [address] [facility], [address] [phone] * Neisseria gonorrhoeae PCR [[id number]] (01/14/2025 5:06 PM CDT) Neisseria gonorrhoeae Negative Negative 01/15/2025 7:23 PM CDT [facility] Comment:Negative for N. gono rrhoeae rRNA by oracle security consultant mediated amplification. A negative result by oracle security consultant mediated amplification does not preclude the presence of C. trachomatis infection because results are dependent on proper and adequate collection, absence of inhibitors and sufficient rRNA to be detected. Neisseria gonorrhoeae Specimen Source Urine, Voided 01/15/2025 7:23 PM CDT [facility] Urine VOIDED URINE SPECIMEN / Unknown Non-blood Collection / Unknown 01/14/2025 5:06 PM CDT 01/14/2025 5:13 PM CDT Alvin Caldwell APRN [facility] LAB - MICRO GENERAL ORDERA BLES Final Result [facility] Inf. Diseases Diag. Lab [address] [facility], [address] * Chlamydia trachomatis PCR [[id number]] (01/14/2025 5:06 PM CDT) Pathologist [facility] Chlamydia trachomatis Negative Negative 01/15/2025 7:23 PM CDT [facility] Comment:A negative result by oracle security consultant mediated amplification does not preclude the presence of C. trachomatis infection because results are dependent on proper and adequate collection, absence of inhibitors and sufficient rRNA to be detected. Chlamydia trachomatis Specimen Source Urine, Voided 01/15/2025 7:23 PM CDT [facility] Urine VOIDED URINE SPECIMEN / Unknown Non-blood Collection / Unknown 01/14/2025 5:06 PM CDT 01/14/2025 5:13 PM CDT us Alvindianna Caldwell APRN [facility] LAB - MICRO GENERAL ORDERA BLES Final Result [facility] Inf. Diseases Diag. Lab [address] [facility], [address] * (ABNORMAL) CBC with platelets and differential (01/07/2025 5:22 PM CDT) Pathologist [facility] WBC Count 7.3 4.0 - 11.0 10e3/uL [...] 5:22 PM CDT 01/07/2025 5:25 PM CDT Chance Gill MD LAB - BLOOD ORDERABLES Final Result LABORATORY [facility] - [place] Lab [address] [facility] Lab - [address] [place] [address] * (ABNORMAL) Basic metabolic panel (01/07/2025 5:22 [...] 10:22 PM CDT [facility] Comment:eGFR calculated usin 2020 CKD-EPI equation. Calcium 8.9 8.8 - 10.4 mg/dL 01/08/2025 10:22 PM CDT [facility] Glucose 96 70 - 99 mg/dL 01/08/2025 10:22 PM CDT [facility] Blood BLOOD SPECIMEN / Unknown Venipuncture / Unknown 01/07/2025 5:22 PM CDT 01/07/2025 5:25 PM CDT us Chance Gill MD LAB - BLOOD ORDERABLES Final Result [facility] [place] Core Lab [address] [facility], [address] [place] [address], [facility] [[email or web address]] from Last 3 Months Insurance [place] [address] [employer] CLAIMS [employer] [facility] CLAIMS MANAGEMENT [employer] [facility] CLAIMS MANAGEMENT Care Teams Banking Assistant Relationship Specialty Start Date End Date Isabel Valderrama NP [address] [place] [id number] PCP - General Family Medicine 08/11/21 Amy Sierra MD [address] [place] [phone] Neurology 01/26/22 Isabel Valderrama NP [address] [place] [address] [phone] Assigned PCP 11/18/22
[2025-02-03] MEDS: KETOROLAC 10 MG TABLET PO (00:39)
[2025-02-03] MEDS: levoFLOXacin 750 MG TABLET PO (00:40)
--- NOTE | 2025-02-03 01:51 | ED.GENADULT ---
HPI - General Adult General Chief complaint: Skin/Abscess/Foreign Body Stated complaint: puss from surgical wound Time Seen by Provider: 02/03/25 00:02 History of Present Illness HPI narrative: 39-year-old male presents to the emergency department with increased purulent drainage, tenderness and swelling to his penis. He is rather vague on the timeline on this. Reports that he had a circumcision 2 weeks ago tomorrow. He reports that the stitches were loose and he has been pulling on them. He says that the drainage and tenderness is new. Reports that he has been attempting to get a hold of someone from the urology office, was told that he can follow up at his scheduled appointment in 5 weeks. It is unclear from our conversation if he was talking to the nurse or just the switchboard operator receptionist. Attempts to redirect and asked this directly did not further clarify my specific question. He tried taking a 1000 mg of Tylenol about 10-12 hours ago. No fever. No difficulty voiding. Reports that there is purulent drainage and increased swelling. Denies any new sexual contact or injury. No vomiting, no upper abdominal pain. Not applying any type of ointment. My records do not allow me to check to see if he is actually following up with his urologist with his concerns. This is not his 1st middle of the night genital related complaint, and he is from out of town. Reports that he has had for urological surgeries. Home medications are reviewed, no anticoagulants. No known drug allergies. ROS is notable for the general complications only, otherwise denies times 12 systems. Related Data Home Medications ?Medication ?Instructions ?Recorded ?Confirmed semaglutide (weight loss) 2.4 2.4 mg subcut DIRECTED 07/22/24 02/02/25 mg/0.75 mL subcutaneous pen injector (Wegovy) topiramate 25 mg tablet 25 mg PO BID 07/22/24 02/02/25 Previous Rx's ?Medication ?Instructions ?Recorded ketorolac 10 mg tablet 10 mg PO Q6H PRN pain 5 days #20 02/03/25 tabs levofloxacin 500 mg tablet 500 mg PO DAILY #7 tabs 02/03/25 Allergies Allergy/AdvReac Type Severity Reaction Status Date / Time No Known Drug Allergies Allergy Verified 02/02/25 23:49 PFSH PFS Medical History Sore throat ?J02.9 - Acute pharyngitis, unspecified (ICD-10) Surgical History No significant past surgical history Social History Smoking Status: Never smoker Second hand tobacco smoke exposure: No How often do you have a drink containing alcohol: never AUDIT-C Alcohol total score: 0 Non-prescribed substance use: denies use Exam Const: Vital Signs, click to edit/add: Vital Signs - 24 hr 02/02/25 23:50 Temperature 98.4 F Pulse Rate [Pulse Oximeter] 75 Respiratory Rate 16 Blood Pressure [Ri ght Upper Arm] 143/92 H Pulse Oximetry 99 Oxygen Delivery Me thod Room Air Documenting provider has reviewed patient's vital signs: yes Other: He is a little irritable but cooperates with exam. Meandering story that is difficult to follow. HENMT: Common normals: normocephalic, head/scalp atraumatic and moist oral mucous membranes Head and scalp: normocephalic and atraumatic Resp: Common normals: normal respiratory effort and no use of accessory muscles Effort & inspection: able to speak in complete sentences : Other: Recent stitches around base of for skin with for skin removal consistent with recent circumcision. There is some slight yellow sticky drainage at 6:00 a.m. and a quarter-sized area of swelling adjacent to this. Very mild erythema but it is not circumferential. Normal capillary refill an appearance of the head of the penis. Testicles and scrotum are not swollen. No bleeding. Extremity: Common normals: normal to inspection Neuro: Speech: speech normal Psych: Appearance: grossly normal Insight: fair Judgement: fair Course Course ED Course: Increased tenderness and swelling to recent circumcision site. Certainly no circumferential swelling, voiding difficulty, bleeding or signs of emergent complication. This really should be handled by his surgical team, patient counseled regarding this. This is not the patient's 1st general related visit in the middle of the night 9 do suspect that there may be some secondary gain. Nonetheless, with the yellow sticky drainage and his report of change, I a.m. concerned that he could be developing an early infection though I cannot exclude that this is not part of the normal healing process. I will start him on level floxacillin 750 p.o. x1 and then continue on 500 once daily for 7 days. Dose of Toradol given in ED. Prescription for additional Toradol p.r.n. given. Alarm symptoms like high fever, inability to void or severe pain were discussed as indications to come to ED. I counseled patient that this still will need subspecialty care and it is his responsibility to contact his surgeon for a follow-up visit. Instructed him to ask for the nurse rather than the switchboard operator receptionist to convey his concerns. Contact phone numbers were likely given on his discharge paperwork. Specific written instructions on what to convey to the nurse were reviewed. Written instructions provided. All questions answered. Glass Cut Off Supervisor used for entire interview and discussion. Vital Signs Vital signs: Initial Vital Signs Temperature 98.4 F 02/02/25 23:50 Temperature Source Temporal Artery Scan 02/02/25 23:50 Pulse Rate 75 02/02/25 23:50 Respiratory Rate 16 02/02/25 23:50 Blood Pressure 143/92 H 02/02/25 23:50 Blood Pressure Mean 109 H 02/02/25 23:50 Blood Pressure Position Sitting 02/02/25 23:50 Pulse Oximetry 99 02/02/25 23:50 Oxygen Delivery Method Room Air 02/02/25 23:50 Vital Signs Temperature 98.4 F 02/02/25 23:50 Pulse Rate 75 02/02/25 23:50 Respiratory Rate 16 02/02/25 23:50 Blood Pressure 143/92 H 02/02/25 23:50 Pulse Oximetry 99 02/02/25 23:50 Oxygen Delivery Method Room Air 02/02/25 23:50 Temperature 98.4 F 02/02/25 23:50 Pulse Rate 75 02/02/25 23:50 Respiratory Rate 16 02/02/25 23:50 Blood Pressure 143/92 H 02/02/25 23:50 Pulse Oximetry 99 02/02/25 23:50 Oxygen Delivery Method Room Air 02/02/25 23:50 Medications Administered Medications: Discontinued Medications Generic Name Dose Route Start Last Admin Trade Name Freq PRN Reason Stop Dose Admin Ketorolac Tromethamine 10 mg 02/03/25 00:27 02/03/25 00:39 Ketorolac 10 Mg Tablet PO 02/03/25 00:28 10 mg ONCE ONE Administration Levofloxacin 750 mg 02/03/25 00:27 02/03/25 00:40 Levofloxacin 750 Mg Tablet PO 02/03/25 00:28 750 mg ONCE ONE Administration Discharge Plan Discharge Clinical Impression: Circumcision complication Patient Disposition: Home, Self-Care Condition: Stable Instructions: Wound Infection (DC) Additional Instructions: As we discussed, the stitches do not look abnormal. I do not think that you pulling on them caused any of the swelling or signs that you have right now. I would like for you to apply antibiotic ointment or plain Vaseline around the stitches area 1-2 times per day. I have started you on an antibiotic due to concern that there could be a mild skin infection. The swelling does seem slightly more than expected and could be a sign of complication. But what we need most is your urologist to give their opinion on how things are going. Please call their office in the morning and insist on speaking with the nurse rather than a rehabilitation aide/scheduler. I want to to explain to them that you are noticing pus drainage and increased swelling and pain. You were seen in the emergency department and started on an antibiotic. In the meantime, if you have a high fever, vomiting or other signs of complication, you should return to the emergency room. The antibiotic will be taken once daily, at bedtime. You were already given your dose here in the emergency department for this evening. Take your next dose Sunday at bedtime. Continue taking once daily for a week. For pain, you may use Tylenol 1000 mg every 6 hours. I have also given her prescription for Toradol 10 mg up to every 6 hours as needed for pain. This medicine is safe to drive on. Jignesh comentamos, los puntos no se jayden anormales. No creo que tirar de ellos haya causado la hinchaz?n ni los s?ntomas que tiene ahora. Me gustar?a que se aplicara valentina?ento antibi?darleen o vaselina simple alrededor de los puntos zeenat o dos veces al d?a. Le he recetado antibi?ticos porque me preocupa que pueda tener zeenat infecci?n cut?hannah leve. La hinchaz?n parece un poco mayor de lo esperado y podr?a ser un signo de complicaci?n. Minal lo que m?s necesitamos es que austin ur?logo nos d? austin opini?n sobre c?mo va todo. Por favor, llame a austin consultorio por la ma?laquita e insista en hablar con la enfermera en lugar de con un m?dico. Quiero explicarle que est? notando supuraci?n de pus y un aumento de la hinchaz?n y el dolor. Fue atendido en urgencias y comenz? a tomarle antibi?ticos. Mientras tanto, si tiene fiebre tai, v?mitos u otros signos de complicaci?n, debe regresar a urgencias. El antibi?darleen se gualberto? zeenat vez al d?a, antes de acostarse. Ya le dieron austin dosis aqu? en urgencias para esta noche. [place] austin pr?xima dosis el deniz antes de acostarse. Contin?e cedric?ndolo zeenat vez al d?a ada zeenat semana. Para el dolor, puede usar Tylenol 1000 mg cada 6 horas. Tambi?n le he recetado Toradol 10 mg, hasta cada 6 horas, seg?n sea necesario para el dolor. Dayna medicamento es seguro para conducir. Activity Level: Activity as Tolerated Discharge Diet: Regular Prescriptions: New levofloxacin 500 mg tablet 500 mg PO DAILY Qty: 7 0RF ketorolac 10 mg tablet 10 mg PO Q6H PRN (Reason: pain) 5 Days Qty: 20 0RF No Action topiramate 25 mg tablet 25 mg PO BID Wegovy 2.4 mg/0.75 mL pen injector 2.4 mg subcut DIRECTED Follow Up/Referrals: Provider,Not a Local [Primary Care Provider, Family Practice] Stand Alone Forms: [facility] Info Inst[facility]
== END 2025-02-03 00:57 | disposition home or self-care (01) ==
LOC: ED 02-03 00:34
PROVIDERS: Emergency Provider Family Medicine
DX: L76.82 Other postprocedural complications of skin and subcutaneous tissue (principal); Z87.898 Personal history of other specified conditions
CPT/HCPCS: 99283; A9270

== ENCOUNTER 2025-04-23 00:15 | Emergency (ER) | payer OTHER, SELFPAY ==
--- OUTSIDE RECORDS SUMMARY | 2024-07-16 09:30 | XMS_ITS ---
Author Organization [facility] Address [address] [place] [address] [address] [place] [address] Care Team Providers Care Senior Manager Quality Assurance Name Role Phone Sammy Cunningham Primary Care Provider Marysol III DC, Stanely Unavailable Unavaila Cliff Kohler Unavailable [phone] REASON FOR VISIT sched doesnt work with pt Encounters Encounter Location Date Provider Diagnosis [facility] [address] [facility] [address] [place] [address] 07/16/2024 Cliff Guerra Plan Of Treatment No Information Progress Notes * Basil GODFREYALYSSA: 7 (39 yo M)Acc No.[id number]:07/16/2024 Progress Notes Patient: Cheng HUERTA Provider: Felisa Guerra NP :1985 A ge:38 Y S ex:Male Date:07/16/2024 Phone: Address:[address] [place] [id number] Pcp:Sammy Cunningham Subjective: * Chief Complaints: * 1 . Sched doesnt work with pt. * Medical History: Objective: * Vitals: Assessment: Plan: * Treatment: * Billing Information: * Visit Code: * Procedure Codes: * Electronic signature of Giovany Guerra CNP on 04/23/2025 at 12:18 AM CDT Sign off status: Pending * Provider: Felisa Guerra NP Date: 09/15/2023 Generated for Printi ng/Faxing/eTransmitting on: 0 04/23/2025 12:18 AM CDT
--- OUTSIDE RECORDS SUMMARY | 2024-07-24 09:45 | XMS_ITS ---
Author Organization [facility] Address [address] [place] [address] [address] [place] [address] Care Team Providers Care Hearing Care Practitioner Name Role Phone Sammy Cunningham Primary Care Provider [phone] Marysol III DC, Stanely Unavailable Unavaila ble Ever Patricia [phone] REASON FOR VISIT INJECTION ONLY Bilateral Thoracic TPIs Encounters Encounter Location Date Provider Diagnosis [address] [facility] [address] [facility] [address] [place] [address] 07/24/2024 Ever Patricia Plan Of Treatment No Information Progress Notes * Basil GODFREYOB: 7 (39 yo M)Acc No.[id number]:07/24/2024 Patient: Cheng HUERTA Provider: Marcia Patricia PA-C :1985 A ge:38 Y S ex:Male Date:07/24/2024 Phone: Address:[address] [place] [phone] Pcp:Sammy Cunningham * Billing Information: * Visit Code: * Procedure Codes: Trigger Point 2 or less. Trigger Point, 3 or more. A4209 5 cc - 19 cc gauge syringe. A4215 [place] only Sterile any size each. J0665 Inj, bupivacaine, nos, 0.5mg. J1010 Inj, methylpred acetate 1 mg. * Electronic signature of Yannick Patricia PA-C on 04/23/2025 at 12:19 AM CDT Sign off status: Pending * Provider: Marcia Patricia PA-C Date: 1 09/24/2023 Generated for Dariusi ng/Faxing/eTransmitting on: 0 04/23/2025 12:19 AM CDT
--- OUTSIDE RECORDS SUMMARY | 2024-08-05 08:30 | XMS_ITS ---
Author Organization [facility] Address [address] [place] [address] [address] [place] [address] Care Team Providers Care Assistant Food Service Manager Name Role Phone Sammy Cunningham Primary Care Provider Marysol III DC, Stanely Unavailable Unavaila Faith Spencer Unavailable Unavailable REASON FOR VISIT 2023.12.16 PT didn't want to reschd'l will cb when he's more aware of his schedule. MLV Encounters Encounter Location Date Provider Diagnosis [address] [facility] [address] [facility] [address] [place] [address] 08/05/2024 Faith Iglesias Plan Of Treatment No Information Progress Notes * Basil GODFREYOB: 7 (39 yo M)Acc No.[id number]:08/05/2024 OT Evaluation Patient: Cheng HUERTA Provider: Martin Iglesias OTDR/Gabby :1985 A ge:38 Y S ex:Male Date:08/05/2024 Phone: Address:[address], [phone] Pcp:Sammy Cunningham Subjective: * Chief Complaints: Objective: Therapeutic Interventions: Assessment: Plan: * Treatment: * Billing Information: * Visit Code: * Procedure Codes: * Electronic signature of Sheryl Iglesias OTDR/Gabby on 04/23/2025 at 12:19 AM CDT Sign off status: Pending * Provider: Martin Iglesias OTDR/Gabby Date: 1 10/06/2023 Generated for Printi ng/Faxing/eTransmitting on: 0 04/23/2025 12:19 AM CDT
--- OUTSIDE RECORDS SUMMARY | 2024-08-26 10:00 | XMS_ITS ---
Author Organization [facility] Address [address] [place] [address] [address] [place] [address] Care Team Providers Care Antenna Installer Name Role Phone Sammy Cunningham Primary Care Provider Marysol III DC, Stanely Unavailable Unavaila ble Sukhdev Coughlin Unavailable [phone] REASON FOR VISIT INJECTION ONLY Bilateral Thoracic TPIs Encounters Encounter Location Date Provider Diagnosis [address] [facility] [address] [facility] [address] [place] [address] 08/26/2024 Sukhdev Coughlin Plan Of Treatment No Information Progress Notes * Basil GODFREYOB: 7 (39 yo M)Acc No.[id number]:08/26/2024 Patient: Cheng HUERTA Provider: Anette Coughlin PA-C :1985 A ge:38 Y S ex:Male Date:08/26/2024 Phone: Address:[address] [place], [place] [phone] Pcp:Sammy Cunningham * Billing Information: * Visit Code: * Procedure Codes: Trigger Point 2 or less. Trigger Point, 3 or more. A4209 5 cc - 19 cc gauge syringe. A4215 [place] only Sterile any size each. J0665 Inj, bupivacaine, nos, 0.5mg. J1010 Inj, methylpred acetate 1 mg. * Electronic signature of Shay Coughlin PA-C on 04/23/2025 at 12:19 AM CDT Sign off status: Pending * Provider: Anette Coughlin PA-C Date: 0 08/26/2024 Generated for Printi ng/Faxing/eTransmitting on: 0 04/23/2025 12:19 AM CDT
--- OUTSIDE RECORDS SUMMARY | 2025-04-23 00:19 | XMS_ITS | Encounter Summary ---
Author Organization [facility] Address [address] [place] [address] Care Team Providers Care Java J2Ee Lead Name Role Phone Isabel Valderrama INSURANCE MARKETING SPECIALIST Primary Care Provider [phone] Amy Sierra MD Unavailable [phone] Isabel Valderrama INSURANCE MARKETING SPECIALIST Unavailable [phone] Reason for Visit * Reason Onset Date Comments Refill Request 04/01/2024 minoxidil (LONIT EN) 2.5 MG tablet 60 tablet 2 01/21/2024 Encounter Details Date Type Department Care Team (Late st Contact Info) Description 04/01/2024 MyC Refill [facility] [address] [place] [address] Isabel Valderrama, INSURANCE MARKETING SPECIALIST [address] [phone] Refill Request (minoxidil (LONITEN) 2.5 MG... 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 MICA PLATE LAYER HAND Gender Identity Not on file Sexual Orientation Not on file documented as of this encounter Miscellaneous Notes * Telephone Encounter - Leydi Major RN - 04/04/2024 9:43 AM CDT minoxidil (LONITEN) 2.5 MG tablet 60 tablet 2 01/21/2024 Message sent to patient in MyChart-refills should be available Leydi Major RN [facility] Central Nursing/Red Flag Triage & Med Refill Team documented in this encounter Plan of Treatment Not on file documented as of this encounter Visit Diagnoses Diagnosis Hair loss Alopecia, unspecified documented in this encounter Additional Health Concerns Assessment Noted Time PHQ-9 Depression Total Score: 16 021 8:34 AM MICA PLATE LAYER HAND documented as of this encounter Care Teams Java J2Ee Lead Relationship Specialty Start Date End Date Isabel Valderrama NP [address] [address] PCP - General Family Medicine 08/11/21 08/19/24 Amy Sierra MD [address] [place] [address] Neurology 01/26/22 Isabel Valderrama NP [address] [place] [address] Assigned PCP 11/18/22 documented as of this encounter
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
--- OUTSIDE RECORDS SUMMARY | 2025-04-23 00:19 | XMS_ITS | Patient Health Record ---
Author Organization [facility] Address [address] [place] [address] Care Team Providers Care Cap Lining Machine Operator Name Role Phone None, None Primary Care Provider UnavailCHRISTINA Talbot Unavailable [phone] Jennifer Parks Unavailable [phone] Allergies No Known Allergies Reason For Referral [...] Status W/U Status Risk Notes Problem Epistaxis (697839316) Epistaxis (784.7) Active confirmed Problem Deviated nasal septum (127165385) Nasal septal deviation (470) Active confirmed Problem Tonsillar hypertrophy (04724951) Tonsillar hypertrophy (J35.1) Active confirmed Problem Sensorineural hearing loss, bilateral (781312111) Bilateral sensorineural hearing loss (H90.3) Active confirmed Problem Acquired nasal deformity (67605917) Acquired nasal deformity (M95.0) Active confirmed Problem Nasal congestion (85528456) Chronic nasal congestion (R09.81) Active confirmed Problem Breathing-related sleep disorder (disorder) (818509503) Sleep disorder breathing (G47.30) Active confirmed Problem History of tonsillectomy (situation) (832079702) S/P tonsillectomy (Z90.89) Active confirmed Problem Sensorineural hearing loss of right ear with normal hearing on left side (disorder) (1050920316) Sensorineural hearing loss (SNHL) of right ear with unrestricted hearing of left ear (H90.41) Active confirmed Problem Sensorineural hearing loss of left ear with normal hearing on right side (disorder) (9257806564) Sensorineural hearing loss (SNHL) of left ear with unrestricted hearing of right ear (H90.42) Active confirmed Problem Deviated nasal septum (504425502) Deviated nasal septum (J34.2) Active confirmed Vital Signs Height-cm 172.72 cm 09/03/2024 Weight-kg 110.68 kg 09/03/2024 Height 68 in 09/03/2024 Weight 244 lbs 09/03/2024 BMI 37.1 kg/m2 09/03/2024 Procedures Procedure Date Ordered Date Performed Result Body Sit e Surgery 07/09/2024 07/21/2024 08-28-24 Encounters Encounter Location Date Provider Diagnosis [facility] [address] [place] [address] [place] [address] 07/09/2024 CHRISTINA HURLEY Deviated septum J34. 2 ; Nasal turbinate hypertrophy J34.3 ; Drainage from ear, left H92.12 and Bilateral sensorineural hearing loss H90.3 [facility] [address] [place] [address] [place] [address] 07/09/2024 Jennifer Parks Sensorineural hearin g loss (SNHL) of left ear with unrestricted hearing of right ear H90.42 [facility] [address] [facility] [address] [place] [address] 08/28/2024 CHRISTINA HURLEY [facility] [address] [place] [address] [place] [address] 09/03/2024 CHRISTINA HURLEY Status post nasal surgery V45.89 [facility] [address] [place], [place] [address] [place] [address] [place] [address] 07/15/2024 CHRISTINA HURLEY [facility] [address] [place] [address] 07/21/2024 CHRISTINA HURLEY Assessments Encounter Date Diagnosis [...] Date Coverage End Date [employer] [address] [address] [place], [place] [id number] Cheng Verdugo Self - patient is the insured Medications Administered Medication Instructions Date of Administration Dosage Notes Kenalog 40 mg/ml 11/15/2022 80 mg LOT # [id number] Medical (General) History Surgical History Surgery Date(Month/Year) Tonsillectomy- JM 11/09/2022 justina christopher [facility] [place] 08/28/2024
--- OUTSIDE RECORDS SUMMARY | 2025-04-23 00:19 | XMS_ITS | Encounter Summary ---
Author Organization [facility] Address [address] [place] [address] Care Team Providers Care Energy Trader Name Role Phone Isabel Valderrama MANUFACTURING EXECUTIVE Primary Care Provider [phone] Amy Sierra MD Unavailable [phone] Isabel Valderrama NP Unavailable [phone] Encounter Details Date Type Department Care Team (Late st Contact Info) Description 03/25/2024 MyC Medical Advice [facility] [address] [place] [address] Eugenia Miller Social History Tobacco Use Types [...] on file Legal Sex Male 4:45 AM MALARIOLOGIST Gender Identity Not on file Sexual Orientation Not on file documented as of this encounter Plan of Treatment Not on file documented as of this encounter Visit Diagnoses Not on filedocumented in this encounter Additional Health Concerns Assessment Noted Time PHQ-9 Depression Total Score: 16 021 8:34 AM MALARIOLOGIST documented as of this encounter Care Teams Energy Trader Relationship Specialty Start Date End Date Isabel Valderrama NP [address] [place] [address] PCP - General Family Medicine 08/11/21 08/19/24 Amy Sierra MD [address] [place] [address] Neurology 01/26/22 Isabel Valderrama NP [address] [place] [address] Assigned PCP 11/18/22 documented as of this encounter
--- OUTSIDE RECORDS SUMMARY | 2025-04-23 00:19 | XMS_ITS | Clinical Summary ---
Author Organization [facility] Address [address] [address] Care Team Providers Care Jewelsmith Name Role Phone No Primary/Referring, Phy Primary Care Provider Unavailable Source Comments You are receiving this document as you are listed as the primary care provider,follow-up provider, or the patient has been referred to you for consultation.This is in compliance with the Medicare and[facility] Hospital[facility] EHR Incentive Program,which states Providers who transition their patient to another setting of careor provider of care or refers their patient to another provider of care shouldprovide summary care record for each transition of care or referral. [place] Allergies Active Allergy Reactions Criticality Noted Date [...] Encounters Date Type Department Care Team Description 03/13/2025 Notes/Orders [facility] [place] [address] [place] [address] Alexandra Jon MD from Last 3 Months Immunizations Immunization Administration Dates Next Due DTP 02/25/1992, 9,05/18/1987,1986,1986 HepB Adult (Engerix-B, 20+ y rs, 3 dose series) 11/13/2006,08/18/2005,09/10/2002 IPV (Polio) 02/25/1992, 9,02/18/1987,1986 Influenza IIV4 (Quadrivalent ) 0.5mL ([id number]) 09/01/2015 MMR 05/18/1999,06/19/1989 Td 05/18/1999 Tdap 09/01/2015 [...] (Preventive Services) 2002 Adult Preventive Visit 2004 HPV Vaccine (1 - 3-dose SCDM series) 2013 Cholesterol 2021 COVID-19 Vaccine ( season) 2024 01/11/2021, 12/21/2020 Influenza Vaccine (#1) 2025 09/01/2015 DTaP/Tdap/Td Vaccine (7 - Tdap) 09/01/2025 09/01/2015, 05/18/1999, 05/18/1999, Additional history exists Zoster/Shingles Vaccine (1 of 2) 2036 IPV (Polio) Vaccine Completed 02/25/1992, 06/19/1989, 02/18/1987, Additional history exists HepB Vaccine Completed 11/13/2006, 07/22, 09/10/2002 HepA Vaccine Aged Out No longer eligi [...] patient's age to complete this topic Insurance [employer] WC MISC INS WORK COMP WC WORKCOMP PENDING WC [facility] Member Subscriber Plan / Payer (Ef fective 2024-Present) Name:Audrey Godfreyan Relation to Subscriber:Self Name:Cheng Godfrey Payer ID:Not on file Type:Commercial Address: [place] [phone] [facility] Advance Directives * Full Code (Latest Code Status on File) Date Activated Date Inactivated Comments 01/17/2024 11:21 AM 01/17/2024 3:41 PM Care Teams Jewelsmith Relationship Specialty Start Date End Date No Primary/Referring, Phy PCP - General 05/15/14
--- OUTSIDE RECORDS SUMMARY | 2025-04-23 00:20 | XMS_ITS | Encounter Summary ---
Author Organization [place] Address [facility] [place] [address] Care Team Providers Care Parimutuel Ticket Checker Name Role Phone Amy Sierra MD Unavailable [phone] Isabel Valderrama NP Unavailable [phone] Encounter Details Date Type Department Care Team (Late Contact Info) Description 01/09/2025 Results Follow-Up [address] [address] Chance Gill MD [address] [place] [address] Subj: Message about your results Social History [...] than three times a week 01/14/2025 Attends Restoration Services Not on file 01/14 Active Member of Clubs or Organizations Not on f ile 01/14/2025 Attends Club or Organization Meetings Not on jacque e 01/14/2025 Marital Status Not on file 01/14/2025 PHQ-2 Answer Date Recorded PHQ-2 Score 0 01/14/2025 [facility] [place] of Occupat ional Health - Occupational Stress [...] in an abandoned building, in an overnight residential, or couch-surfing.) No 01/14/2025 Are you worried [...] on file Legal Sex Male 4:45 AM RIM BUSTER Gender Identity Not on file Sexual Orientation Not on file documented as of this encounter Miscellaneous Notes * Result Encounter Note - Chance Gill MD - 01/09/2025 6:55 AM CDT Preop labs are fine Okay for procedure Chance Gill MD documented in this encounter Plan of Treatment Not on file documented as of this encounter Visit Diagnoses Not on filedocumented in this encounter Additional Health Concerns Assessment Noted Time PHQ-9 Depression Total Score: 16 021 8:34 AM RIM BUSTER documented as of this encounter Care Teams Parimutuel Ticket Checker Relationship Specialty Start Date End Date Amy Sierra MD [address] [place] [address] Neurology 01/26/22 Isabel Valderrama NP [address] [place] [address] Assigned PCP 11/18/22 documented as of this encounter
--- OUTSIDE RECORDS SUMMARY | 2025-04-23 00:20 | XMS_ITS | Clinical Summary ---
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 Gender Identity Not on file Sexual Orientation [...] for age 35-44 2021 COVID-19 vaccine series (3 - 2024- season) 2025 01/11/2021, 12/21/2020 Influenza Vaccine (#1) 2025 Tetanus booster 09/01/2025 09/01/2015, 04/21, 05/18/1999, Additional history exists RSV vaccine for adults or (1 - 1-dose 75+ series) 2061 Hepatitis B series for 19+ Completed 11/13, 08/18/2005, 09/10/2002 Pneumococcal series for age 6-49 Aged Out No longer eligible based on patient's age to complete this topic Insurance [employer] WORK[employer] COMP WORKERS COMP Advance Directives * Full Code (Latest Code Status on File) Date Activated Date Inactivated Comments 11/09/2022 8:46 AM 11/09/2022 3:23 PM Question Answer Comments Code Status Discussion: Reviewed Preferences Care Teams Insulation Worker Relationship Specialty Start Date End Date Nonstaff, Doctor NON STAFF DOCTOR PCP - General 10/25/22
--- OUTSIDE RECORDS SUMMARY | 2025-04-23 00:20 | XMS_ITS | Encounter Summary ---
Author Organization [place] Address [facility] [place] [address] Care Team Providers Care Heel Compressor Name Role Phone Amy Sierra MD Unavailable [phone] Isabel Valderrama NP Unavailable [phone] Encounter Details Date Type Department Care Team (Late Contact Info) Description 01/16/2025 Results Follow-Up [address] [address] Alvin Caldwell, [facility] [address] [place] [address] Subj: Message about your results [...] than three times a week 01/14/2025 Attends Faith Services Not on file 01/14 Active Member of Clubs or Organizations Not on f ile 01/14/2025 Attends Club or Organization Meetings Not on jacque e 01/14/2025 Marital Status Not on file 01/14/2025 PHQ-2 Answer Date Recorded PHQ-2 Score 0 01/14/2025 [facility] [place] of Occupat ional Health - Occupational Stress [...] in an abandoned building, in an overnight prison, or couch-surfing.) No 01/14/2025 Are you worried [...] on file 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
--- OUTSIDE RECORDS SUMMARY | 2025-04-23 00:20 | XMS_ITS | Clinical Summary ---
Author Organization [place] Address [address] [place] [address] Care Team Providers Care Secy Name Role Phone Amy Sierra MD Unavailable [phone] Isabel Valderrama NP Unavailable [phone] Allergies Active Allergy Reactions Criticality Noted Date Comments Latex Other (See Comments) 11/08/2022 Medications SUMAtriptan (IMITREX) 100 MG tabletIndicatio ns:Other migraine without status migrainosus, not intractable 100mg one time. May repeat 100 mg once again, up to a maximum of 200mg in 24 hours. 20 tablet 3 08/03/20 21 Active Additional Information Patient not taking.Reported on 01/07/2025 topiramate (TOPAMAX) 25 MG tabletIndicatio ns:Migraine without aura and without status migrainosus, not intractable TAKE 1 TABLET BY MOUTH AT BEDTIME X1 WEEK, THEN 1 TABLET TWICE DAILY X1WEEK, THEN 1 IN AM AND 2 IN PM X1 WEEK, THEN 2 TABLETS TWICE DAILY. 70 tablet 05/14/20 24 Active WEGOVY 2.4 MG/0.75ML pen Inject 2.4 mg subcutaneously once a week. 06/30/20 24 Active emtricitabine-t enofovir (TRUVADA) 200-300 MG per tablet Take 1 tablet by mouth daily. 12/25/19 25 Active Active Problems Problem Noted Date Diagnosed Date Morbid obesity 12/07/2022 Pain in joint involving ankle and foot 4 Resolved Problems Problem Noted Date Diagnosed Date Resolved Date Acute pain of right knee 09/10/202105/2022 Pain in joint involving ankle and foot, right 09/10/19 22 12/27/2021 Lumbago 09/15/2006 10/12/2006 Immunizations Immunization Administration Dates Next Due DTAP [...] than three times a week 01/14/2025 Attends [employer] Services Not on file 01/14 Active Member of Clubs or Organizations Not on f ile 01/14/2025 Attends Club or Organization Meetings Not on jacque e 01/14/2025 Marital Status Not on file 01/14/2025 PHQ-2 Answer Date Recorded PHQ-2 Score 0 01/14/2025 [facility] [place] of Occupat ional Health - Occupational Stress [...] building, in an overnight penitentiary, or couch-surfing.) No 01/14/2025 Are you worried [...] on file 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 Gender Identity Not on file Sexual Orientation [...] season) 2024 01/11/2021, 12/21/2020 INFLUENZA VACCINE (#1) 2025 09/01/2015 DTAP/TDAP/TD VACCINE (8 - Td [...] 01/07/2025, 01/21/2024, Additional history exists HPV VACCINE (No Doses Required) Completed MENINGITIS VACCINE Aged Out No longer eligible [...] CDT Screen for STD (sexually transmitted disease) BASIC METABOLIC PANEL Routine 01/07/2025 5:22 PM CDT Preop general physical exam from Last 3 Months or Most Recently Relevant to Health Maintenance Results * HIV Antigen Antibody Combo [[id number]] (01/14/2025 5:06 PM CDT) HIV Antigen Antibody Combo Nonreactive Nonreactive 01/15/2025 9:45 PM CDT [facility] Comment:Negative HIV-1 p24 a ntigen and [...] PM CDT 01/14/2025 5:13 PM CDT us Alvin Caldwell APRN MANAGING BROKER LAB - BLOOD ORDERABLES Fin al Result LABORATORY [facility] [place] [facility] [address] [facility] [address], [address] [place] [address], [facility] * (ABNORMAL) Basic metabolic panel (01/07/2025 5:22 [...] PM CDT [facility] Comment:eGFR calculated usin g 2020 CKD-EPI equation. Calcium 8.9 8.8 - 10.4 mg/dL 01/08/2025 10:22 PM CDT [facility] Glucose 96 70 - 99 mg/dL 01/08/2025 10:22 PM CDT [facility] Blood BLOOD SPECIMEN / Unknown Venipuncture / Unknown 01/07/2025 5:22 PM CDT 01/07/2025 5:25 PM CDT Chance Gill MD LAB - BLOOD ORDERABLES Final Result [facility] [address] [facility], [address] [place] [address], [facility] from Last 3 Months or Most Recently Relevant to Health Maintenance Insurance [facility] CHOICE CHOICE CHOICE [place] CLAIMS retail experience specialist [facility] CLAIMS MANAGEMENT [employer] [facility] [facility] CLAIMS MANAGEMENT Care Teams Secy Relationship Specialty Start Date End Date Amy Sierra MD [address] [place] [address] Neurology 01/26/22 Isabel Valderrama TRANSFORMATION MANAGER [address] [place] [address] (work) Assigned PCP 11/18/22
--- OUTSIDE RECORDS SUMMARY | 2025-04-23 00:20 | XMS_ITS | Encounter Summary ---
Author Organization [facility] Address [address], [place] [address] Care Team Providers Care Automotive Buyer Name Role Phone No Primary/Referring, Phy Primary Care Provider Unavailable Encounter Details Date Type Department Care Team (Late st Contact Info) Description 03/13/2025 Notes/Orders [facility] [place] [address] [place] [address] Alexandra Jon MD [address] [place] [address] [address] [place], [place] [id number] Social History Tobacco Use Types Packs/Day Years [...] on filedocumented in this encounter Care Teams Automotive Buyer Relationship Specialty Start Date End Date No Primary/Referring, Phy PCP - General 05/15/14 documented as of this encounter
[2025-04-23 00:24] VITALS: BP 135/81; PULSE 81; RESP 20; TEMP 36.7; O2SAT 97; BMI 30.4
[2025-04-23 00:32] LABS: Appearance Urine Clear (Clear)
--- NOTE | 2025-04-23 00:32 | ED_ITS ---
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 Patient reports that he had a circumcision back in January 2025. Patient reports that over the weekend he has had increased pain, swelling, and sensitivity to his penis. Patient denies any fever, chills, denies any drainage or discharge, denies any dysuria, no abdominal pain, nausea, vomiting. Patient denies any urinary tension is able to urinate without difficulty. Patient does report that he recently had sexual intercourse this past Sunday for the 1st time since his circumcision as he was told to wait 3 months. Symptoms started over the weekend and patient is not able to follow-up with his urologist until Sunday. Patient reports similar episode in which he was seen in the emergency department on 02/03/25. At this time he had swelling, tenderness, and drainage to his penis. Patient states he was treated with Toradol, antibiotic, and had significant improvement of symptoms. Related Data Home Medications ?Medication ?Instructions ?Recorded ?Confirmed semaglutide (weight loss) 2.4 2.4 mg subcut DIRECTE D 07/22/24 04/23/25 mg/0.75 mL subcutaneous pen injector (Wegovy) topiramate 25 mg tablet 25 mg PO BID 07/22/24 Allergies Allergy/AdvReac Type Severity Reaction Status Date / Time No Known Drug Allergies Allergy Verified 04/23/25 00:48 Review of Systems Narrative: Past medical history, past surgical history, medications, allergies, family hist ory, and social history were reviewed with the patient. No additional pertinent items. A medically appropriate review of systems was performed with pertinent positives and negatives noted in HPI, all other systems negative. [facility] Medical History (Updated 04/23/25 @ 02:06 by Noelle Joshi MD) Sore throat ?J02.9 - Acute pharyngitis, unspecified (ICD-10) Surgical History (Updated 04/23/25 @ 00:33 by Bertram De La Paz RN) History of circumcision ?Z98.890 - Other specified postprocedural states (ICD-10) Social History Smoking Status: Never smoker Second hand tobacco smoke exposure: No How often do you have a drink containing alcohol: never AUDIT-C Alcohol total score: 0 Non-prescribed substance use: denies use Exam Narrative: Exam Narrative: General: Afebrile, no acute distress HEENT: Normocephalic, atraumatic, conjunctiva normal. MMM Neck: non-tender, supple Cardio: regular rate. regular rhythm Resp: Normal work of breathing, no respiratory distress, lungs clear bilaterally, no wheezing, rhonchi, rales Chest/Back: no visual signs of trauma, no midline tenderness, no CVA tenderness Abdomen: soft, non distension, no tenderness, no peritoneal signs : swelling noted to the distal shaft of his penis (near the trujillo)/prior circumcision site. No swelling to glans. No purulent drainage noted but there is a foul smell. No erythema. Swelling is not circumferential. It is sensistive to touch. Normal capillary refill and appearance of the head of the penis/glans. Neuro: alert and fully oriented. CN II-XII grossly intact. Grossly normal strength and sensation in all extremities. MSK: no deformities. Normal range of motion Integumentary/Skin: no rash visualized, normal color Psych: normal affect, normal behavior Const: Vital Signs, click to edit/add: Vital Signs - 24 hr 04/23/25 00:24 Temperature 98.0 F Pulse Rate [Right Pulse Oximeter] 81 Respiratory Rate 20 Blood Pressure [Ri ght Upper Arm] 135/81 Pulse Oximetry 97 Oxygen Delivery Me thod Room Air Course Vital Signs Vital signs: Initial Vital Signs Temperature 98.0 F 04/23/25 00:24 Temperature Source Temporal Artery Scan 04/23/25 00:24 Pulse Rate 81 04/23/25 00:24 Respiratory Rate 20 04/23/25 00:24 Blood Pressure 135/81 04/23/25 00:24 Blood Pressure Mean 99 04/23/25 00:24 Blood Pressure Position Sitting 04/23/25 00:24 Pulse Oximetry 97 04/23/25 00:24 Oxygen Delivery Method Room Air 04/23/25 00:24 Vital Signs Temperature 98.0 F 04/23/25 00:24 Pulse Rate 81 04/23/25 00:24 Respiratory Rate 20 04/23/25 00:24 Blood Pressure 135/81 04/23/25 00:24 Pulse Oximetry 97 04/23/25 00:24 Oxygen Delivery Method Room Air 04/23/25 00:24 Temperature 98.0 F 04/23/25 00:24 Pulse Rate 81 04/23/25 00:24 Respiratory Rate 20 04/23/25 00:24 Blood Pressure 135/81 04/23/25 00:24 Pulse Oximetry 97 04/23/25 00:24 Oxygen Delivery Method Room Air 04/23/25 00:24 MDM - Male Genitourinary MDM Narrative Medical decision making narrative: hCeng is a 39-year-old male who presents the emergency department for evaluation of penile swelling. Upon arrival patient is nontoxic appearing, afebrile, in distress secondary to pain. Patient hemodynamically stable vital signs within normal limits. I reviewed urinalysis which is unremarkable with no evidence of acute infection. On examination there is swelling noted to the distal shaft of his penis (near the trujillo)/prior circumcision site. No swelling to glans. No purulent drainage noted but there is a foul smell. No erythema. Swelling is not circumferential. It is sensistive to touch. Normal capillary refill and appearance of the head of the penis/glans. Patient here with increased swelling, sensitivity/tenderness after recently having intercourse for the 1st time since his circumcision. I discussed with patient this could be related to intercourse however I do strongly recommend close follow-up with his urologist/surgeon. At this time patient is urinating without difficulty, no evidence of infection, no circumferential swelling, no bleeding, no emergent complications or evidence of paraphimosis. Patient does have follow-up with his urologist on Sunday however I do strongly recommend him to call the clinic in the morning to let them know of his symptoms and that he was in the emergency department. At this time I recommend supportive care with anti-inflammatories, avoidance of intercourse. I do not see any signs of infection however patient reports this is similar to his previous a presentation back in January which improved with antibiotics and Toradol. Given the swelling, pain, foul smelling but no obvious drainage I will send him with a prescription for levoquin however I would like him to discuss with his urologist in the morning prior to medications. Plan for Tylenol and Toradol for pain. Patient feels comfortable with discharge home. Strict return precautions discussed. Lab Data Labs: Lab Results 04/23/25 Range/Units 00:22 Urine Color Yellow (Yellow) Urine Appearance Clear (Clear) Urine pH 6.0 (5.0-8.5) Ur Specific Ch[place] >= 1.030 (1.000-1.030) Urine Protein Negative (Negative) Urine Glucose (UA) Negative (Negative) Urine Ketones Negative (Negative) Urine Blood Negative (Negative) Urine Nitrite Negative (Negative) Urine Bilirubin Negative (Negative) Urine Urobilinogen 0.2 (0.2-1.0) Ur Leukocyte Esterase Negative (Negative) Urine RBC 0-2 (0-2) Urine WBC 0-2 (0-5) Ur Squamous Epith Cells None (None-Few) Urine Bacteria None (None) Discharge Plan Discharge Clinical Impression: Penile swelling Patient Disposition: Home, Self-Care Condition: Stable Additional Instructions: Please follow-up with urology team in the next 1-2 days. Please call in the morning to let them know your in the emergency department in need to schedule an appointment. Please ice, take Tylenol 1000 mg every 6 hours as needed for pain. Please take Toradol 10 mg every 6 hours as needed for pain, swelling. Please take antibiotics as directed. Please do not have sexual intercourse until you are seen by your urologist. Please return to the emergency department if he develops high fever, severe pain, inability to urinate, or any worsening symptoms. It was a pleasure taking care of you today. We hope you feel better soon. Prescriptions: No Action topiramate 25 mg tablet 25 mg PO BID Wegovy 2.4 mg/0.75 mL pen injector 2.4 mg subcut DIRECTED Follow Up/Referrals: Provider,Not a Local [Primary Care Provider, Family Practice] Stand Alone Forms: [employer] Info Instructions
[2025-04-23 02:12] VITALS: BP 128/84; PULSE 79; RESP 20; TEMP 36.7; O2SAT 97
[2025-04-23 02:13] VITALS: BP 128/84; PULSE 79; RESP 20; TEMP 36.7
== END 2025-04-23 02:14 | disposition home or self-care (01) ==
PROVIDERS: Emergency Provider Emergency Medicine
DX: N48.29 Other inflammatory disorders of penis (principal)
CPT/HCPCS: 51798; 81001; 99282; 99283; 99285